=== PATIENT | male | born 1995 ===

== ENCOUNTER 2020-01-31 12:57 | Outpatient (REF) | payer OTHER, SELFPAY | END 2020-01-31 12:58 | disposition home or self-care (01) | LOC: HO.LAB 12:57 | PROVIDERS: PCP Nurse Practitioner Family; Visit Provider Internal Medicine | DX: Z20.828 Contact with and (suspected) exposure to other viral communicable diseases (principal) | CPT/HCPCS: C9803; U0003 ==

== ENCOUNTER 2020-02-06 11:59 | Outpatient (REF) | payer OTHER, SELFPAY ==
[2020-02-06 14:34] LABS: Alanine Aminotransferase 32 U/L (0-40); Albumin Level 4.5 g/dL (3.5-5.0); Alkaline Phosphatase 56 U/L (39-117); Anion Gap 15 (12-20); Aspartate Amino Transferase 23 U/L (5-37); Bilirubin Total 0.7 mg/dL (0.0-1.0); Blood Urea Nitrogen 10 mg/dL (9-16); Calcium 9.4 mg/dL (8.4-10.2); Carbon Dioxide 26 mmol/L (22-29); Chloride 101 mmol/L (96-108); Cholesterol 175 mg/dL; Estimated Glomerular Filt Rate > 60; Glucose Fasting 89 mg/dL (60-99); HDL Cholesterol 51 mg/dL; LDL Cholesterol Calculated 98 mg/dl; Potassium 4.1 mmol/l (3.3-5.1); Sodium 138 mmol/L (135-145); Total Protein 7.5 g/dL (6.5-8.0); Triglycerides 132 mg/dL
[2020-02-06 14:40] LABS: TSH reflex Free T4 1.28 mIU/mL (0.32-4.0)
== END 2020-02-06 12:00 | disposition home or self-care (01) ==
LOC: HO.HMGCLDS 11:59
PROVIDERS: PCP Nurse Practitioner Family; Visit Provider Nurse Practitioner Family
DX: Z00.00 Encounter for general adult medical examination without abnormal findings (principal); Z13.220 Encounter for screening for lipoid disorders; Z13.29 Encounter for screening for other suspected endocrine disorder
CPT/HCPCS: 80053; 80061; 84443

== ENCOUNTER 2020-05-21 11:47 | Outpatient (REF) | payer OTHER, SELFPAY ==
[2020-05-21 13:49] LABS: MANUAL DIFF FLAG NO
[2020-05-21 13:54] LABS: Basophils Percent Auto 0.4 % (0-2); Eosinophils Absolute Auto 0.1 X10*3/uL (0.0-0.4); Eosinophils Percent Auto 1.5 % (0-4); Hematocrit 44.4 % (42-52); Hemoglobin 15.4 g/dl (14.0-18.0); Imm Gran Abs Auto 0.02 X10*3/uL (0.00-0.03); Imm Gran Pct Auto 0.3 % (0.0-0.4); Lymphocytes Absolute Auto 2.3 X10*3/uL (1.2-4.9); Lymphocytes Percent Auto 33.7 % (20-40); Mean Corpuscular HGB Conc 34.7 g/dl (31.0-36.0); Mean Corpuscular Hemoglobin 30.2 pg (27.0-33.0); Mean Corpuscular Volume 87.1 fL (80-98); Mean Platelet Volume 11.5 fL (9.4-12.4); Monocytes Absolute Auto 0.6 X10*3/uL (0.1-1.2); Monocytes Percent Auto 8.3 % (2-11); Neutrophils Absolute Auto 3.8 X10*3/uL (2.0-8.3); Neutrophils Percent Auto 55.8 % (45-73); Platelet Count 222 X10*3/uL (160-400); Red Cell Distribution Width 11.9 % (11.0-16.0); White Blood Count 6.7 X10*3/uL (4.8-10.8)
[2020-05-21 14:23] LABS: Alanine Aminotransferase 35 U/L (0-40); Albumin Level 4.2 g/dL (3.5-5.0); Alkaline Phosphatase 48 U/L (39-117); Anion Gap 11 (12-20); Aspartate Amino Transferase 23 U/L (5-37); Bilirubin Total 0.6 mg/dL (0.0-1.0); Blood Urea Nitrogen 7 mg/dL (9-16); Calcium 8.9 mg/dL (8.4-10.2); Carbon Dioxide 30 mmol/L (22-29); Chloride 105 mmol/L (96-108); Cholesterol 148 mg/dL; Estimated Glomerular Filt Rate > 60; Glucose Fasting 88 mg/dL (60-99); HDL Cholesterol 42 mg/dL; LDL Cholesterol Calculated 86 mg/dl; Lipase 14 U/L (8-78); Potassium 4.5 mmol/L (3.3-5.1); Sodium 141 mmol/L (135-145); Total Protein 6.7 g/dL (6.5-8.0); Triglycerides 103 mg/dL
[2020-05-21 14:45] LABS: TSH reflex Free T4 0.61 uIU/mL (0.32-4.0)
== END 2020-05-21 11:48 | disposition home or self-care (01) ==
LOC: HO.HMGCLDS 11:47
PROVIDERS: PCP Nurse Practitioner Family; Visit Provider Nurse Practitioner Family
DX: R11.2 Nausea with vomiting, unspecified (principal)
CPT/HCPCS: 36415; 80053; 80061; 83690; 84443; 85025

== ENCOUNTER 2020-06-13 08:20 | Outpatient (REF) | payer OTHER, SELFPAY ==
--- NOTE | ~2020-06-13 | US_ITS ---
EXAMINATION: US ABDOMEN COMPLETE CLINICAL INFORMATION: Nausea with vomiting, unspecified. COMPARISON: Ultrasound abdomen complete 10/25/2019 and 01/28/2018. KUB 02/04/2017. TECHNIQUE: Real-time imaging of the abdominal viscera. FINDINGS: PANCREAS: The head of the body is homogeneous in echotexture. The body and tail of pancreas is not visualized. ABDOMINAL AORTA: The proximal, mid, and distal segments are normal in caliber. INFERIOR VENA CAVA: Visualized portions are normal. LIVER: The liver is normal in size. The liver contour is normal. The liver is diffusely echogenic. No focal hepatic lesion. There is no intrahepatic biliary duct dilatation seen. GALLBLADDER: Normal. The gallbladder is physiologically distended without evidence of stones, sludge, polyps, wall thickening or pericholecystic fluid. COMMON BILE DUCT: Normal in caliber measuring 0.2 cm in diameter. RIGHT KIDNEY: Normal. No hydronephrosis. No renal calculi or focal parenchymal lesions. The kidney measures 10.9 cm in maximum dimension. LEFT KIDNEY: Normal. No hydronephrosis. No renal calculi or focal parenchymal lesions. The kidney measures 11.3 cm in maximum dimension. SPLEEN: Normal. The spleen measures 9.8 cm in maximum dimension. FREE FLUID: None. US/US abdomen complete IMPRESSION: Diffuse echogenic liver without focal lesion. Rest of the abdominal ultrasound is unremarkable.
== END 2020-06-13 08:21 | disposition home or self-care (01) ==
LOC: HO.HMGCX 08:20
PROVIDERS: Visit Provider Nurse Practitioner Family
DX: R11.2 Nausea with vomiting, unspecified (principal)
CPT/HCPCS: 76700

== ENCOUNTER 2020-08-15 13:08 | Emergency (ER) | payer OTHER, SELFPAY ==
[2020-08-15 13:51] VITALS: BP 132/79; PULSE 66; RESP 18; TEMP 36.2; O2SAT 97; BMI 36.1
--- NOTE | 2020-08-15 14:36 | ED.GENADULT ---
HPI - General Adult General Chief complaint: GI Bleed <IMAN Goel Last Filed: 08/24/20 12:19> Stated complaint: hernia <IMAN Goel Last Filed: 08/24/20 12:19> Time Seen by Provider: 08/15/20 14:35 <IMAN Goel Last Filed: 08/24/20 12:19> History of Present Illness HPI narrative: Patient complains of noticing blood on the toilet paper after a bowel movement and some drops of blood in the toilet along with normal-appearing stool no black tarry stool no purple stool, normal brown stool with some flecks of blood in the water, no dizziness no weakness no vomiting no fever no abdominal pain <IMAN Goel Last Filed: 08/24/20 12:19> Related Data Home medications: Previous Rx's Medication Instructions Recorded lorazepam 0.5 mg tablet 0.5 mg PO DAILY PRN #5 tab 05/10/20 albuterol sulfate 90 mcg/actuation 1 inh INHALATION QID PRN 30 Days 07/28/20 aerosol inhaler #8.5 g <IMAN Goel Last Filed: 08/24/20 12:19> Allergies/adverse reactions: Allergies Allergy/AdvReac Type Severity Reaction Status Date / Time Sulfa (Sulfonamide Allergy Unknown hives Verified 09/18/20 17:16 Antibiotics) sulfamethoxazole Allergy Unknown HIVES Verified 09/18/20 17:16 [From BACTRIM] trimethoprim [From BACTRIM] Allergy Unknown HIVES Verified 09/18/20 17:16 SEASONAL ALLERGIES Allergy Unknown UNKNOWN Uncoded 09/18/20 17:16 <IMAN Goel Last Filed: 08/24/20 12:19> Review of Systems Review of Systems: Positive for blood in the stool Negatives are no fever no chills no dizziness no weakness no headache no neck pain no fainting no feeling faint no dizziness no weakness no chest pain no abdominal pain no nausea vomiting or diarrhea no constipation no dysuria no skin rash <IMAN Goel Last Filed: 08/24/20 12:19> Yes all other systems are reviewed and are negative <IMAN Goel Last Filed: 08/24/20 12:19> PMFSH Past Medical History Source: nursing notes reviewed <IMAN Goel Last Filed: 08/24/20 12:19> Medical History: Medical History Schizoaffective disorder <IMAN Goel - Last Filed: 08/24/20 12:19> Family History Family History: Family History Father No problems noted. Mother No problems noted. Sister No problems noted. <IMAN Goel - Last Filed: 08/24/20 12:19> Social History Social History: Social History Alcohol intake: never Patient Tobacco Use Status: Current everyday Tobacco user e-Cigarette/Vaping Use: Former Use <IMAN Goel - Last Filed: 08/24/20 12:19> Physical Exam Vital Signs: Vital Signs: Last Vital Signs Temp 99.2 F 08/15/20 15:18 Pulse 64 08/15/20 15:18 Resp 18 08/15/20 15:18 BP 117/79 08/15/20 15:18 Pulse Ox 98 08/15/20 15:18 Body Mass Index 36.1 <IMAN Goel - Last Filed: 08/24/20 12:19> Vital Signs: Last Vital Signs Temp 99.2 F 08/15/20 15:18 Pulse 64 08/15/20 15:18 Resp 18 08/15/20 15:18 BP 117/79 08/15/20 15:18 Pulse Ox 98 08/15/20 15:18 Body Mass Index 36.1 <Nilson Coyne MD - Last Filed: 09/25/20 18:47> General appearance is no acute distress comfortable and cooperative The eye exam there is no pallor, anicteric The pharynx is clear with moist mucous membranes Neck is supple Chest clear to auscultation bilateral Are no murmur Abdomen soft nontender Rectal exam was normal no obvious hemorrhoid internal exam no mass was palpated there was brown stool on the glove Extremities no edema no rash no petechial rash no purpura Neuro no gross motor or sensory deficit <IMAN Goel - Last Filed: 08/24/20 12:19> Course Course Course Narrative: CBC was normal with no evidence of anemia Patient is not bleeding from any other source he has no petechiae or purpura poor a, he is eating and drinking normally he has had no black tarry stool no vomiting he is not dizzy and feels fine Guaiac was positive when card was returned from lab and patient is advised to follow closely with primary doctor and possibly to be referred for colonoscopy if needed and return here if there is any dizziness or weakness or heavy bleeding <IMAN Goel - Last Filed: 08/24/20 12:19> I have reviewed the chart <Nilson Coyne MD - Last Filed: 09/25/20 18:47> Medical Decision Making Lab Data Result diagrams: : 08/15/20 15:04 <IMAN Goel - Last Filed: 08/24/20 12:19> Labs: Lab Results 08/15/20 08/15/20 Range/Units 15:04 15:04 WBC 6.7 (4.8-10.8) X10*3/uL RBC 5.40 (4.60-5.80) X10*6/uL Hgb 16.3 (14.0-18.0) g/dl Hct 47.0 (42-52) % MCV 87.0 (80-98) fL MCH 30.2 (27.0-33.0) pg MCHC 34.7 (31.0-36.0) g/dl RDW 12.4 (11.0-16.0) % Plt Count 231 (160-400) X10*3/uL MPV 11.1 (9.4-12.4) fL Immature Gran % (Auto) 0.2 (0.0-0.4) % Neut % (Auto) 61.1 (45-73) % Lymph % (Auto) 27.8 (20-40) % [place] % (Auto) 8.6 (2-11) % Eos % (Auto) 2.0 (0-4) % Baso % (Auto) 0.3 (0-2) % Lymph # (Auto) 1.9 (1.2-4.9) X10*3/uL [place] # (Auto) 0.6 (0.1-1.2) X10*3/uL Eos # (Auto) 0.1 (0.0-0.4) X10*3/uL Baso # (Auto) 0.0 (0.0-0.2) X10*3/uL Abs Immat Gran (auto) 0.01 (0.00-0.03) X10*3/uL Absolute Neuts (auto) 4.1 (2.0-8.3) X10*3/uL Absolute Nucleated RBC 0.000 (0.0-0.012) X10*3/uL Nucleated RBC % (auto) 0.0 (0.0-0.2) /100WBC Stool Occult Blood POSITIVE (NEGATIVE) <IMAN Goel - Last Filed: 08/24/20 12:19> Lab Results 08/15/20 08/15/20 Range/Units 15:04 15:04 WBC 6.7 (4.8-10.8) X10*3/uL RBC 5.40 (4.60-5.80) X10*6/uL Hgb 16.3 (14.0-18.0) g/dl Hct 47.0 (42-52) % MCV 87.0 (80-98) fL MCH 30.2 (27.0-33.0) pg MCHC 34.7 (31.0-36.0) g/dl RDW 12.4 (11.0-16.0) % Plt Count 231 (160-400) X10*3/uL MPV 11.1 (9.4-12.4) fL Immature Gran % (Auto) 0.2 (0.0-0.4) % Neut % (Auto) 61.1 (45-73) % Lymph % (Auto) 27.8 (20-40) % [place] % (Auto) 8.6 (2-11) % Eos % (Auto) 2.0 (0-4) % Baso % (Auto) 0.3 (0-2) % Lymph # (Auto) 1.9 (1.2-4.9) X10*3/uL [place] # (Auto) 0.6 (0.1-1.2) X10*3/uL Eos # (Auto) 0.1 (0.0-0.4) X10*3/uL Baso # (Auto) 0.0 (0.0-0.2) X10*3/uL Abs Immat Gran (auto) 0.01 (0.00-0.03) X10*3/uL Absolute Neuts (auto) 4.1 (2.0-8.3) X10*3/uL Absolute Nucleated RBC 0.000 (0.0-0.012) X10*3/uL Nucleated RBC % (auto) 0.0 (0.0-0.2) /100WBC Stool Occult Blood POSITIVE (NEGATIVE) <Nilson Coyne MD - Last Filed: 09/25/20 18:47> Discharge Plan Discharge Clinical Impression: Rectal bleeding <IMAN Goel - Last Filed: 08/24/20 12:19> Patient Disposition: Home, Self-Care <IMAN Goel - Last Filed: 08/24/20 12:19> Additional Instructions: Our testing showed trace blood in the stool Your blood count was normal, your not losing too much blood at this time I wrote a prescription for hydrocortisone ointment which may help with irritation and itchiness Return anytime for dizziness weakness black tarry stool hemorrhaging blood, any worse condition or any concerns Follow within 2 weeks with primary doctor for re-evaluation and possible referral to specialist as if bleeding continues he may need colonoscopy <IMAN Goel - Last Filed: 08/24/20 12:19> Prescriptions: No Action lorazepam 0.5 mg tablet 0.5 mg PO DAILY PRN (Reason: anxiety) Qty: 5 RF: 0 albuterol sulfate 90 mcg/actuation HFA aerosol inhaler 1 inh inhalation QID PRN (Reason: shortness of breath or wheezing) 30 Days Qty: 8.5 RF: 2 <IMAN Goel - Last Filed: 08/24/20 12:19> Stand Alone Forms: Work/School Release <IMAN Goel - Last Filed: 08/24/20 12:19> Interventions: ED Discharge Assessment Last Done: 08/15/20 15:42 <IMAN Goel - Last Filed: 08/24/20 12:19> Discharge Date/Time: 08/15/20 15:43 <IMAN Goel - Last Filed: 08/24/20 12:19>
[2020-08-15 15:07] LABS: MANUAL DIFF FLAG NO
[2020-08-15 15:09] LABS: OBS1 POSITIVE (NEGATIVE)
[2020-08-15 15:10] LABS: OBS Int Ctl Valid YES
[2020-08-15 15:12] LABS: Basophils Percent Auto 0.3 % (0-2); Eosinophils Absolute Auto 0.1 X10*3/uL (0.0-0.4); Hemoglobin 16.3 g/dl (14.0-18.0); Imm Gran Abs Auto 0.01 X10*3/uL (0.00-0.03); Imm Gran Pct Auto 0.2 % (0.0-0.4); Lymphocytes Absolute Auto 1.9 X10*3/uL (1.2-4.9); Lymphocytes Percent Auto 27.8 % (20-40); Mean Corpuscular HGB Conc 34.7 g/dl (31.0-36.0); Mean Corpuscular Hemoglobin 30.2 pg (27.0-33.0); Mean Platelet Volume 11.1 fL (9.4-12.4); Monocytes Absolute Auto 0.6 X10*3/uL (0.1-1.2); Monocytes Percent Auto 8.6 % (2-11); Neutrophils Absolute Auto 4.1 X10*3/uL (2.0-8.3); Neutrophils Percent Auto 61.1 % (45-73); Platelet Count 231 X10*3/uL (160-400); Red Cell Distribution Width 12.4 % (11.0-16.0); White Blood Count 6.7 X10*3/uL (4.8-10.8)
[2020-08-15 15:18] VITALS: BP 117/79; PULSE 64; RESP 18; TEMP 37.3; O2SAT 98
== END 2020-08-15 15:43 | disposition home or self-care (01) ==
PROVIDERS: Physician Assistant Medical; Emergency Provider Emergency Medicine; PCP Nurse Practitioner Family
DX: K62.5 Hemorrhage of anus and rectum (principal); Z79.899 Other long term (current) drug therapy
CPT/HCPCS: 36415; 82272; 85025; 99284

== ENCOUNTER 2020-09-06 | Outpatient (REF) | payer OTHER, SELFPAY | END 2020-09-06 00:01 | disposition home or self-care (01) | LOC: HO.LNP | PROVIDERS: Visit Provider Nurse Practitioner Family | DX: Z13.89 Encounter for screening for other disorder (principal) ==

== ENCOUNTER 2020-09-13 11:29 | Outpatient (REF) | payer OTHER, SELFPAY ==
[2020-09-13 11:54] LABS: FIT Int Ctl YES; FIT1 NEGATIVE (NEGATIVE); FIT2 NEGATIVE (NEGATIVE)
== END 2020-09-13 11:30 | disposition home or self-care (01) ==
LOC: HO.LNP 11:29
PROVIDERS: Visit Provider Nurse Practitioner Family
DX: Z12.11 Encounter for screening for malignant neoplasm of colon (principal)
CPT/HCPCS: 82274

== ENCOUNTER 2021-07-21 07:18 | Inpatient (IN) | payer OTHER, SELFPAY ==
--- NOTE | 2021-07-21 | ECG_ITS ---
Test Reason : chest pain Blood Pressure : / mmHG Vent. Rate : 063 BPM Atrial Rate : 063 BPM P-R Int : 166 ms QRS Dur : 106 ms QT Int : 380 ms P-R-T Axes : 060 101 023 degrees QTc Int : 388 ms Normal sinus rhythm with sinus arrhythmia Rightward axis Borderline ECG When compared with ECG of 27-JUL-2019 13:34, No significant change was found Referred By: Generic ED Physician Electronically Signed By:BRITANY DUMONT
--- NOTE | ~2021-07-21 | XR_ITS ---
EXAMINATION: XR CHEST CLINICAL INFORMATION: Left-sided chest pain and tingling in left arm. COMPARISON: 02/06/2016 chest radiograph. TECHNIQUE: 2 views of the chest were obtained. FINDINGS: No significant abnormality is noted involving the heart, lungs, mediastinum, bony thorax or soft tissues. XR/XR chest 2V IMPRESSION: No acute cardiopulmonary process.
[2021-07-21 07:30] VITALS: BP 113/60; PULSE 59; RESP 18; TEMP 36.4; O2SAT 98; BMI 33.4
[2021-07-21 08:03] LABS: MANUAL DIFF FLAG NO
[2021-07-21 08:14] LABS: Basophils Percent Auto 0.1 % (0-2); Eosinophils Absolute Auto 0.1 X10*3/uL (0.0-0.4); Eosinophils Percent Auto 1.6 % (0-4); Hematocrit 45.4 % (42.0-52.0); Hemoglobin 15.7 g/dl (14.0-18.0); Imm Gran Abs Auto 0.02 X10*3/uL (0.00-0.03); Imm Gran Pct Auto 0.3 % (0.0-0.4); Lymphocytes Absolute Auto 2.4 X10*3/uL (1.2-4.9); Lymphocytes Percent Auto 30.9 % (20-40); Mean Corpuscular HGB Conc 34.6 g/dl (31.0-36.0); Mean Corpuscular Hemoglobin 29.8 pg (27.0-33.0); Mean Corpuscular Volume 86.3 fL (80.0-98.0); Mean Platelet Volume 10.5 fL (9.4-12.4); Monocytes Absolute Auto 0.7 X10*3/uL (0.1-1.2); Neutrophils Absolute Auto 4.5 x10*3/uL (2.0-8.3); Neutrophils Percent Auto 58.1 % (45-73); Platelet Count 213 X10*3/uL (160-400); Red Blood Count 5.26 X10*6/uL (4.60-5.80); Red Cell Distribution Width 12.8 % (11.0-16.0); White Blood Count 7.7 X10*3/uL (4.8-10.8)
[2021-07-21 08:25] LABS: Anion Gap 11 (12-20); Blood Urea Nitrogen 11 mg/dL (9-16); Calcium 9.5 mg/dL (8.4-10.2); Carbon Dioxide 25 mmol/L (22-29); Chloride 106 mmol/L (96-108); Creatinine Clr Calc Pharmacy 126.7; Estimated Glomerular Filt Rate > 60; Glucose Random 96 mg/dL (60-115); Sodium 138 mmol/L (135-145)
[2021-07-21 08:30] LABS: Troponin-I High Sensitivity < 3.5 ng/L (<3.5-35.0)
--- NOTE | 2021-07-21 08:49 | ED.CHESTPAIN ---
HPI - Chest Pain General Chief Complaint: Chest Pain Stated Complaint: chest pain down into l arm not sleeping Time Seen by Provider: 07/21/21 08:41 Source: patient Mode of arrival: ambulatory Limitations: other (Poor historian not really responding/answering to questions) History of Present Illness HPI narrative: 26-year-old male with a past medical history of schizoaffective disorder and asthma presenting to the ED with complaints of chest pain since last night while he was resting in bed that radiates to his left arm with associated tingling/numbness. He reports he has never had this pain in the past. Although he is a very poor historian when I ask him questions he is very withdrawn and is staring into space not answering some of my questions. He reports that he has not been sleeping well. He reports that he drinks alcohol and last drank approximately 4 days ago. He denies any drug usage including cocaine/heroin/PCP/ecstasy and all other drugs. He denies recent travel or sick contacts. He denies any fevers, dizziness, headaches, nausea/vomiting, back pain, cough, dyspnea on exertion, orthopnea, palpitations, paresthesias, abdominal pain, diarrhea or constipation, dysuria, abnormal penile discharge, lower extremity edema or calf tenderness, SI/HI/auditory visualizations thoughts of self-injury. MD complaint: chest pain Onset (ago): day(s) (Since last night) Timing of current episode: constant and still present Prior episodes: No Onset: during rest Pain location: left chest Pain radiation: left arm Severity: mild Relieving factors: nothing Exacerbating factors: nothing Treatment prior to arrival: none Risk Factors Coronary artery disease risk factors: none Thoracic aortic dissection risk factors: none Related Data Home Medications Medication Instructions Recorded Confirmed hydroxyzine pamoate 50 mg capsule 50 mg PO TID 07/21/21 07/21/21 melatonin 3 mg tablet 9 mg PO BEDTIME 07/21/21 07/21/21 olanzapine 2.5 mg tablet 2.5 mg PO DAILY 07/21/21 07/21/21 olanzapine 5 mg tablet 5 mg PO BEDTIME 07/21/21 07/21/21 Previous Rx's Medication Instructions Recorded albuterol sulfate 90 mcg/actuation 1 inh INHALATION QID PRN 30 Days 07/28/20 aerosol inhaler #8.5 g Allergies Allergy/AdvReac Type Severity Reaction Status Date / Time Sulfa (Sulfonamide Allergy Unknown hives Verified 01/01/21 16:04 Antibiotics) sulfamethoxazole Allergy Unknown HIVES Verified 01/01/21 16:04 [From BACTRIM] trimethoprim [From BACTRIM] Allergy Unknown HIVES Verified 01/01/21 16:04 SEASONAL ALLERGIES Allergy Unknown UNKNOWN Uncoded 09/18/20 17:16 Review of Systems Review of Systems: Constitutional : No Weight loss, No Fever, No Chills, No Night Sweats, No Fatigue, No Malaise ENT/Mouth : No Hearing loss, No Ear Pain, No Nasal Congestion, No Sinus Pain, No Hoarseness, No sore throat, No Rhinorrhea, No Swallowing Difficulty Eyes: No Eye Pain, No Swelling, No Redness, No Foreign Body, No Discharge, No Vision Changes Cardiovascular : + Chest Pain, No SOB, No Dyspnea on Exertion, No Orthopnea, No Edema, No Palpitations Respiratory : No Cough, No Sputum, No Wheezing, No Smoke Exposure, No Dyspnea Gastrointestinal : No Nausea, No Vomiting, No Diarrhea, No Constipation, No abdominal Pain, No Hematochezia, No Melena Genitourinary : no irregular bleeding, No Dysuria, No Urinary Frequency, No Hematuria, No Urinary Incontinence, No Urgency, No Flank Pain, No Urinary Flow Changes, No Hesitancy Musculoskeletal : No joint pain, No Myalgias, No Joint Swelling Skin : No Skin Lesions, No rash Neuro : + left arm numbness/tingling, No Weakness, No Loss of Consciousness, No Dizziness, No Headache Psych : No Anxiety/Panic, No Depression, No SI/HI/AH/VH, No Social Issues, Heme/Lymph: No Bruising, No Bleeding,No Lymphadenopathy Endocrine : No Polyuria, No Polydipsia, No Temperature Intolerance Yes all other systems are reviewed and are negative [facility] Past Medical History Attestation statement: The following information was validated with the patient. Medical History Asthma Schizoaffective disorder Family History Family History Father No problems noted. Mother No problems noted. Sister No problems noted. Social History Social History Alcohol intake: current Alcohol intake frequency: 0-2 drinks per day Patient Tobacco Use Status: Current everyday Tobacco user Smoked in Last 30 Days: Yes e-Cigarette/Vaping Use: Former Use Use of substances other than those prescribed or required for medical reasons: Refusing to respond Advance Directives: No Advance Directives Information Provided: Yes Physical Exam Vital Signs: Vital Signs: Last Vital Signs Temp 97.7 F 07/21/21 09:42 Pulse 59 07/21/21 09:42 Resp 18 07/21/21 09:42 BP 98/54 L 07/21/21 09:42 Pulse Ox 99 07/21/21 09:42 BMI result Body Mass Index 33.4 vital signs have been reviewed as normal and appeared to be correct. Blood pressure normal. Heart rate normal. Respiration rate normal. Temperature normal. Oxygen saturation normal. Appearance: Alert. Oriented X3. No acute distress. Head: Normal external exam. Normocephalic. Atraumatic. Eyes: PERRLA. EOMI. Conjunctiva and sclera normal. Eyelids normal. ENT: Pharynx normal. Uvula midline. Moist mucous membranes. No trismus noted. No drooling noted. No muffled voice noted. Neck: Normal inspection. Neck supple. FROM. No adenopathy. Thyroid Normal. No meningeal signs. No neck mass noted. CVS: Normal heart rate and rhythm. Heart sound normal. No murmurs noted. Pulses normal throughout. Respiratory: No respiratory distress. Painless inspiration. Breath sounds normal. No wheezes/rales/rhonchi noted. Chest nontender. No accessory muscle usage noted or decreased air movement noted. Abdomen: Soft and nontender. Bowel sounds normal in all 4 quadrants. No distention noted. No organomegaly noted. No visible injury noted. Back: No CVA tenderness. Full range of motion noted. Skin: Skin warm and dry. Normal skin color. Normal skin turgor. No rashes/lesions/lacerations noted. Extremities: No lower extremity edema. Extremities exhibit normal range of motion. Extremities nontender. Neuro: Oriented X 3. No motor deficit. No sensory deficit. Reflexes normal. CN's II-XII intact bilaterally? Vascular: +2 distal radial pulses bilaterally. +2 distal pedal pulses bilaterally. Normal capillary refill the upper and lower extremit nails. No cyanosis noted. Psych: Appearance grossly normal, well-kept, mental status normal, speech and movement normal, speech clear, patient appears very sad and anxious along with depressed and withdrawn. Is cooperative. Course Course Course Narrative: 8am - 26-year-old male with a past medical history of schizoaffective disorder and asthma presenting to the ED with complaints of chest pain since last night while he was resting in bed that radiates to his left arm with associated tingling/numbness. He reports he has never had this pain in the past. Although he is a very poor historian when I ask him questions he is very withdrawn and is staring into space not answering some of my questions. He reports that he has not been sleeping well. He reports that he drinks alcohol and last drank approximately 4 days ago. He denies any drug usage including cocaine/heroin/PCP/ecstasy and all other drugs. On exam patient appears very withdrawn not really responding to questions quickly he is staring into the room all over the place. I was in there asking him multiple questions over and over because he would not respond or he would take a long time to actually respond. Otherwise he is neuro intact. No focal neuro deficits are noted. CV RRR. Lungs clear to auscultation. Abdomen is soft nontender. No lower extremity edema or calf tenderness noted. Labs were obtained while the patient was in the waiting room and all within normal limits including troponin. EKG normal sinus rhythm with sinus arrhythmia with ventricular rate of 63 with a right word axis deviation no acute ischemic change are noted. Similar compared to prior EKG 07/27/2019. Chest x-ray within normal limits. Therefore at this time patient medically cleared and placed in Physician observation because the patient is more time to be evaluated by crisis. Will continue to monitor. Reevaluation(s) Reevaluation #1: - patient was just evaluated by N and they believe that he is in some type of catatonic state due to his response to questions take a very long time therefore patient was placed on a Section 12 inpatient bed search with N Dr. Samuel signed a section 12 will continue to monitor. Time: 13:59 [facility] - Chest Pain Medical Records Data Attestation: I reviewed the patient's medical records. Lab Data Attestation: I reviewed the patient's lab results. Result diagrams: 07/21/21 07:59 07/21/21 07:59 Labs: Lab Results 07/21/21 07/21/21 07/21/21 Range/Units 07:59 07:59 07:59 WBC 7.7 (4.8-10.8) X10*3/uL RBC 5.26 (4.60-5.80) X10*6/uL Hgb 15.7 (14.0-18.0) g/dl Hct 45.4 (42.0-52.0) % MCV 86.3 (80.0-98.0) fL MCH 29.8 (27.0-33.0) pg MCHC 34.6 (31.0-36.0) g/dl RDW 12.8 (11.0-16.0) % Plt Count 213 (160-400) X10*3/uL MPV 10.5 (9.4-12.4) fL Immature Gran % (Auto) 0.3 (0.0-0.4) % Neut % (Auto) 58.1 (45-73) % Lymph % (Auto) 30.9 (20-40) % [place] % (Auto) 9.0 (2-11) % Eos % (Auto) 1.6 (0-4) % Baso % (Auto) 0.1 (0-2) % Lymph # (Auto) 2.4 (1.2-4.9) X10*3/uL [place] # (Auto) 0.7 (0.1-1.2) X10*3/uL Eos # (Auto) 0.1 (0.0-0.4) X10*3/uL Baso # (Auto) 0.0 (0.0-0.2) X10*3/uL Abs Immat Gran (auto) 0.02 (0.00-0.03) X10*3/uL Absolute Neuts (auto) 4.5 (2.0-8.3) x10*3/uL Absolute Nucleated RBC 0.000 (0.0-0.012) X10*3/uL Nucleated RBC % (auto) 0.0 (0.0-0.2) /100WBC Sodium 138 (135-145) mmol/L Potassium 4.0 (3.3-5.1) mmol/L Chloride 106 (96-108) mmol/L Carbon Dioxide 25 (22-29) mmol/L Anion Gap 11 L (12-20) BUN 11 (9-16) mg/dL Creatinine 1.02 (0.5-1.4) mg/dL Estim Creat Clear Calc 126.7 Estimated GFR > 60 Random Glucose 96 (60-115) mg/dL Calcium 9.5 D (8.4-10.2) mg/dL Troponin I High Sens < 3.5 (<3.5-35.0) ng/L Ethyl Alcohol mg/dL COVID-19 (AYESHA) (Negative) COVID-19 Clin Com 07/21/21 07/21/21 Range/Units 09:38 10:47 WBC (4.8-10.8) X10*3/uL RBC (4.60-5.80) X10*6/uL Hgb (14.0-18.0) g/dl Hct (42.0-52.0) % MCV (80.0-98.0) fL MCH (27.0-33.0) pg MCHC (31.0-36.0) g/dl RDW (11.0-16.0) % Plt Count (160-400) X10*3/uL MPV (9.4-12.4) fL Immature Gran % (Auto) (0.0-0.4) % Neut % (Auto) (45-73) % Lymph % (Auto) (20-40) % [place] % (Auto) (2-11) % Eos % (Auto) (0-4) % Baso % (Auto) (0-2) % Lymph # (Auto) (1.2-4.9) X10*3/uL [place] # (Auto) (0.1-1.2) X10*3/uL Eos # (Auto) (0.0-0.4) X10*3/uL Baso # (Auto) (0.0-0.2) X10*3/uL Abs Immat Gran (auto) (0.00-0.03) X10*3/uL Absolute Neuts (auto) (2.0-8.3) x10*3/uL Absolute Nucleated RBC (0.0-0.012) X10*3/uL Nucleated RBC % (auto) (0.0-0.2) /100WBC Sodium (135-145) mmol/L Potassium (3.3-5.1) mmol/L Chloride (96-108) mmol/L Carbon Dioxide (22-29) mmol/L Anion Gap (12-20) BUN (9-16) mg/dL Creatinine (0.5-1.4) mg/dL Estim Creat Clear Calc Estimated GFR Random Glucose (60-115) mg/dL Calcium (8.4-10.2) mg/dL Troponin I High Sens (<3.5-35.0) ng/L Ethyl Alcohol < 10 mg/dL COVID-19 (AYESHA) Negative (Negative) COVID-19 Clin Com See Note Imaging Data Chest x-ray: Attestation: I personally reviewed and interpreted this imaging study as follows: Radiologist's impression: FINDINGS: No significant abnormality is noted involving the heart, lungs, mediastinum, bony thorax or soft tissues. XR/XR chest 2V IMPRESSION: No acute cardiopulmonary process. ECG Data ECG #1: Attestation: I personally reviewed and interpreted this ECG as follows: ECG interpretation date: 07/21/21 ECG interpretation time: 07:22 Interpretation: EKG normal sinus rhythm with sinus arrhythmia with ventricular rate of 63 with a right word axis deviation no acute ischemic change are noted. Similar compared to prior EKG 07/27/2019. Discharge Plan Discharge Clinical Impression: Atypical chest pain, Schizoaffective disorder, Insomnia, Catatonia Patient Disposition: Still a Patient Prescriptions: No Action albuterol sulfate 90 mcg/actuation HFA aerosol inhaler 1 inh inhalation QID PRN (Reason: shortness of breath or wheezing) 30 Days Qty: 8.5 2RF olanzapine 5 mg Tablet 5 mg PO BEDTIME 0RF hydroxyzine pamoate 50 mg Capsule 50 mg PO TID 0RF melatonin 3 mg Tablet 9 mg PO BEDTIME 0RF olanzapine 2.5 mg Tablet 2.5 mg PO DAILY 0RF
[2021-07-21 09:42] VITALS: BP 98/54; PULSE 59; RESP 18; TEMP 36.5; O2SAT 99
[2021-07-21 10:07] LABS: COVID-19 Test Negative (Negative)
--- NOTE | 2021-07-21 10:51 | PC.NURSE ---
Pt came to pod cooperatively and queitly aprox 1030. Report from Tiera indicated that there was internal stimuli. Pt acknowledges that he has internal stimuli, AH, that at times there is a message of self harm. He states he used to take Vistaril but after an admission to [facility] last summer he stopped d/t side effects.
--- NOTE | 2021-07-21 10:55 | PC.NURSE ---
pt also stated maybe its the THC . Awaiting VILLA.
--- NOTE | 2021-07-21 11:08 | PC.NURSE ---
smart sheet sent to [facility].
[2021-07-21 11:11] LABS: Ethanol < 10 mg/dL
--- NOTE | 2021-07-21 13:39 | PC.NURSE ---
[employer] pension consultant with patient.
--- NOTE | 2021-07-21 13:52 | PHA.MEDREC ---
MED REC COMPLETE, PATIENT REPORTED HAS NOT BEEN TAKING MEDS, LAST FILL HISTORY IS FROM FEBRUARY 2021 Pharmacy Consult ? Medication Reconciliation Pharmacy has completed the medication reconciliation.
[2021-07-21] MEDS: OLANZapine 2.5 MG TABLET PO (16:13)
[2021-07-21] MEDS: hydrOXYzine HCL 50 MG TABLET PO ×2 (16:13→21:46)
[2021-07-21 16:31] VITALS: BP 118/71; PULSE 62; RESP 15; TEMP 36.7; O2SAT 99
[2021-07-21 19:42] LABS: Amphetamine Screen Urine Not Detected (Not Detect); Barbiturates, Urine Not Detected (Not Detect); Benzodiazepines Screen Urine Not Detected (Not Detect); Cannabinoid Screen Urine Not Detected (Not Detect); Cocaine Screen Urine Not Detected (Not Detect); Fentanyl, urine Not Detected (Not Detect); Opiate Screen Urine Not Detected (Not Detect); Phencyclidine Screen Urine Not Detected (Not Detect)
[2021-07-21] MEDS: Melatonin 3 MG TABLET 9 MG PO (21:45)
[2021-07-21] MEDS: OLANZapine 5 MG TABLET PO (21:46)
--- NOTE | 2021-07-22 06:14 | PC.NURSE ---
Patient slept through the night, no distress observed/reported, behavior non concerning, medication compliant, affect flat, disposition per N is section 12 Inpatient bed search, VSS, will continue to monitor.
[2021-07-22 06:50] VITALS: BP 95/57; PULSE 54; RESP 17; TEMP 36.5; O2SAT 97
[2021-07-22] MEDS: OLANZapine 2.5 MG TABLET PO (09:48)
[2021-07-22] MEDS: hydrOXYzine HCL 50 MG TABLET PO ×3 (09:48→20:33)
--- NOTE | 2021-07-22 10:33 | PC.NURSE ---
pt alert and oriented, denies pain, pleasant, up out of room, med compliant. breakfast given. no behavior issues observed/reported. pt accepted to [facility], awaiting bed assignment. will continue to monitor.
[2021-07-22 17:34] LABS: COVID-19 Test Negative (Negative)
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
[2021-07-22 18:00] VITALS: BP 105/57; PULSE 55; RESP 18; TEMP 36.6; O2SAT 96
--- NOTE | 2021-07-22 18:53 | PC.ADMIT ---
Dhruv is a 26-year-old , bilingual male admitted from [facility] to M3 via wheelchair. CV was obtained and placed in his chart. Pt initially self-presented to ED for chest pain but exhibited bizarre behavior. Per crisis eval, pt has history of schizoaffective disorder and appeared to be responding to internal stimuli. He endorses auditory hallucinations and said it's like a constant argument in my head. During this admission assessment, pt presented as guarded, withdrawn, flat, and distressed. Pt avoided eye contact and was slow to respond to questions. He frequently looked down and would keep his hands on his head. Pt denies current psyhiatric providers or psychiatric medications. Tox screen negative, COVID test negative. Pt endorses smoking at least 1 pack of cigarettes per day and is interested in nicotine gum replacement. When asked about alcohol consumption on a typical day, he responded something like 12 beers, I don't know. Pt denies current SI/HI but said he feels safe reaching out to staff if needed.
[2021-07-22] MEDS: Nicotine Polacrilex 2 MG GUM 4 MG BUCCAL (19:40)
[2021-07-22] MEDS: OLANZapine 10 MG TABLET PO (20:33)
[2021-07-22] MEDS: Melatonin 3 MG TABLET 9 MG PO (20:34)
--- NOTE | 2021-07-23 | ECG_ITS ---
Test Reason : palpitations Blood Pressure : / mmHG Vent. Rate : 048 BPM Atrial Rate : 048 BPM P-R Int : 148 ms QRS Dur : 106 ms QT Int : 414 ms P-R-T Axes : 025 081 065 degrees QTc Int : 369 ms Sinus bradycardia Nonspecific ST and T wave abnormality Abnormal ECG When compared with ECG of 21-JUL-2021 07:22, No significant change was found Referred By: Melida Villavicencio Electronically Signed By:ARON SEALS MD
[2021-07-23 08:40] VITALS: BP 109/56; PULSE 50; RESP 16; TEMP 36.4; O2SAT 99
[2021-07-23] MEDS: hydrOXYzine HCL 50 MG TABLET PO ×3 (09:26→22:36)
[2021-07-23] MEDS: OLANZapine 2.5 MG TABLET PO (09:26)
[2021-07-23 10:01] LABS: Estimated Average Glucose 97 mg/dL
[2021-07-23 10:18] LABS: Cholesterol 156 mg/dL; HDL Cholesterol 39 mg/dL; LDL Cholesterol Calculated 81 mg/dl; Magnesium 1.6 mg/dL (1.6-2.6); Triglycerides 181 mg/dL
[2021-07-23 10:25] LABS: Free T4 (Free Thyroxine) 0.95 ng/dL (0.71-1.85); Thyroid Stimulating Hormone 1.53 uIU/mL (0.32-4.0)
--- NOTE | 2021-07-23 10:43 | HO.PSYCHPN ---
Subjective Subjective Date of Service: 07/23/21 Reason For Visit: Schizoaffective disorder Subjective Notes: Conditional Voluntary Interim History: Pt reports feeling confused, depressed. passive SI. He reports strange things are happening. He reports electronics are sending messages. Poverty of speech, appears thought blocking. He reports dizziness- no significant HOTN or ortho changes. EKG- no ST elevation. Pt mostly in his room, minimally verbal. No behavioral concerns. 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 Unkempt, in hospital attire, somewhat overweight. Poor eye contact, inattentive. No Tics or Tremors. No abnormal involuntary movements. Guarded, difficult to engage. Non-pressured speech, non-spontaneous, quiet. Has prolonged speech latency. No dysarthria. Mood is ?pretty anxious,? affect is flat. Denies SI/SIB/HI upon inquiry. Endorses AH. Appears internally preoccupied. Endorses paranoid delusional thought content. Thoughts are blocked. No known cognitive or memory impairment. Insight/ Judgment is poor. Diagnostics Vital Signs (24Hr): Vital Signs - 24 hr 07/23/21 22:30 07/24/21 08:59 Temperature 97.8 F 97.6 F Pulse Rate 82 58 Respiratory Rate 16 Blood Pressure 107/72 106/69 Pulse Oximetry 98 99 BMI result Body Mass Index 33.4 Labs Results: 07/21/21 07:59 07/21/21 07:59 Labs: Laboratory Results - last 48 hr 07/22/21 07/23/21 07/23/21 17:06 09:21 09:21 Estimat Average Glucose 97 Hemoglobin A1c % 5.0 Magnesium 1.6 Triglycerides 181 Cholesterol 156 LDL Cholesterol, Calc 81 HDL Cholesterol 39 Vitamin B12 Folate TSH 1.53 Free T4 0.95 COVID-19 (AYESHA) Negative COVID-19 Clin Com See Note 07/23/21 09:21 Estimat Average Glucose Hemoglobin A1c % Magnesium Triglycerides Cholesterol LDL Cholesterol, Calc HDL Cholesterol Vitamin B12 365 Folate 18.0 TSH Free T4 COVID-19 (AYESHA) COVID-19 Clin Com Imaging Radiology Impressions: ITS Impressions Chest X-Ray 07/21/21 09:00 IMPRESSION: No acute cardiopulmonary process. Medications Medications Current Medications Acetaminophen (Acetaminophen 325 Mg Tablet) 650 mg PO Q6H PRN PRN Reason: Headache/Pain Mild Scale (1-3) Al Hydroxide/Mg Hydroxide (Magnesium Hydrox/Alum Hydrox 30 Ml Oral.Susp) 30 ml PO Q6H PRN PRN Reason: Heartburn/Nausea Albuterol Sulfate (Albuterol Sulfate 90 Mcg 8 Gm Inhaler) 1 puff INHALE QID PRN PRN Reason: shortness of breath or wheezing Hydroxyzine HCl (Hydroxyzine Hcl 50 Mg Tablet) 50 mg PO TID [facility] Last Admin: 07/24/21 08:51 Dose: 50 mg Documented by: Lorazepam (Lorazepam 0.5 Mg Tablet) 0.5 mg PO Q6H PRN PRN Reason: anxiety, agitation, catatonia Magnesium Hydroxide (Milk Of Magnesia 30 Ml Oral.Susp) 30 ml PO DAILY PRN PRN Reason: Constipation Melatonin (Melatonin 3 Mg Tablet) 9 mg PO BEDTIME [facility] Last Admin: 07/23/21 22:36 Dose: 9 mg Documented by: Nicotine Polacrilex (Nicotine Polacrilex 2 Mg Gum) 4 mg BUCCAL Q2H PRN PRN Reason: nicotine craving Last Admin: 07/22/21 19:40 Dose: 4 mg Documented by: Olanzapine (Olanzapine 2.5 Mg Tablet) 2.5 mg PO DAILY [facility] Last Admin: 07/24/21 08:51 Dose: 2.5 mg Documented by: Olanzapine (Olanzapine 10 Mg Tablet) 20 mg PO BEDTIME [facility] Last Admin: 07/23/21 22:36 Dose: 20 mg Documented by: Pharmacy Consult (Consult Rx Perform Med Rec) 1 each MISCELLANE ONCE PRN PRN Reason: Consult order Trazodone HCl (Trazodone Hcl 50 Mg Tablet) 50 mg PO BEDTIME PRN PRN Reason: Insomnia Allergies Allergies Allergy/AdvReac Type Severity Reaction Status Date / Time Sulfa (Sulfonamide Allergy Unknown hives Verified 01/01/21 16:04 Antibiotics) sulfamethoxazole Allergy Unknown HIVES Verified 01/01/21 16:04 [From BACTRIM] trimethoprim [From BACTRIM] Allergy Unknown HIVES Verified 01/01/21 16:04 SEASONAL ALLERGIES Allergy Unknown UNKNOWN Uncoded 09/18/20 17:16 Assessment & Plan Assessment & Plan (1) Schizoaffective disorder, depressive type: Status: Acute Code(s): F25.1 - Schizoaffective disorder, depressive type Plan Dhruv is a 26 y.o. male who carries a dx of schizoaffective disorder, depressed type. He presented to [facility] on 07/21/2021 due to complaints of chest pain since last night, has not been sleeping well. Urine tox screen negative. Denies recent alcohol use. In the ED, pt presented as internally preoccupied, thought blocking, was not an accurate historian. He endorsed AH. Reports he has been off psychotropic medication x 11/2020. Hx of multiple inpatient admissions for psychotic sx and non-adherence with meds/ OP services in the community. Plan: Pt says he wants to start an antidepressant, may benefit from higher dose of olanzapine for psychotic sx. Will defer to primary psych team. Q15 min safety checks, CV Monitor response to medications. Monitor for safety in the milieu. Discharge on stabilization. Patient seen. Chart reviewed. Discussed with team. Obtain collateral contact info?as needed 5/3 increase olanzapine to 20mg po qhs and continue 2.5mg po daily. I spent ___25___ minutes with the patient and/or on the patient floor today, greater than?50% of which was spent counseling/coordinating care. Reason for contiued inpatient stay Substantial Risk for: harm to self and inability to function
[2021-07-23 10:54] LABS: Vitamin B12 365 pg/mL (200-900)
[2021-07-23 22:30] VITALS: BP 107/72; PULSE 82; TEMP 36.6; O2SAT 98
[2021-07-23] MEDS: OLANZapine 10 MG TABLET 20 MG PO (22:36)
[2021-07-23] MEDS: Melatonin 3 MG TABLET 9 MG PO (22:36)
[2021-07-24] MEDS: OLANZapine 2.5 MG TABLET PO (08:51)
[2021-07-24] MEDS: hydrOXYzine HCL 50 MG TABLET PO ×3 (08:51→21:02)
[2021-07-24 08:59] VITALS: BP 106/69; PULSE 58; RESP 16; TEMP 36.4; O2SAT 99
[2021-07-24] MEDS: LORazepam 1 MG TABLET PO ×3 (11:42→21:02)
--- NOTE | 2021-07-24 12:04 | HO.PSYCHPN ---
Subjective Subjective Date of Service: 07/24/21 Reason For Visit: Schizoaffective disorder Subjective Notes: Conditional Voluntary Interim History: Pt reports hearing voices, again that someone sending messages through electronics, appears thought blocking, some staring at wall, speech not spontaneous. He reports passive SI, no plan or intent. He endorses depressed mood. Hx of catatonia- good response to ativan. Medication Compliance: Yes Side effects from medications: No Attending Groups: No Review of Systems Review of Systems CVS: No c/o chest pain, palpitations, no SOB ASSET COORDINATOR: No c/o dizziness, headache GI: No c/o Nausea, Vomiting, diarrhea, constipation or heartburn Yes all other systems are reviewed and are negative Mental Status Exam Mental Status Exam Narrative: A&O except to situation. Unkempt, in hospital attire, somewhat overweight. Poor eye contact, inattentive. No Tics or Tremors. No abnormal involuntary movements. Guarded, difficult to engage. Non-pressured speech, non-spontaneous, quiet. Has prolonged speech latency. No dysarthria. Mood is ?pretty anxious,? affect is flat. Denies SI/SIB/HI upon inquiry. Endorses AH. Appears internally preoccupied. Endorses paranoid delusional thought content. Thoughts are blocked. No known cognitive or memory impairment. Insight/ Judgment is poor. Diagnostics Vital Signs (24Hr): Vital Signs - 24 hr 07/23/21 22:30 07/24/21 08:59 Temperature 97.8 F 97.6 F Pulse Rate 82 58 Respiratory Rate 16 Blood Pressure 107/72 106/69 Pulse Oximetry 98 99 BMI result Body Mass Index 33.4 Labs Results: 07/21/21 07:59 07/21/21 07:59 Labs: Laboratory Results - last 48 hr 07/22/21 07/23/21 07/23/21 17:06 09:21 09:21 Estimat Average Glucose 97 Hemoglobin A1c % 5.0 Magnesium 1.6 Triglycerides 181 Cholesterol 156 LDL Cholesterol, Calc 81 HDL Cholesterol 39 Vitamin B12 Folate TSH 1.53 Free T4 0.95 COVID-19 (AYESHA) Negative COVID-19 Clin Com See Note 07/23/21 09:21 Estimat Average Glucose Hemoglobin A1c % Magnesium Triglycerides Cholesterol LDL Cholesterol, Calc HDL Cholesterol Vitamin B12 365 Folate 18.0 TSH Free T4 COVID-19 (AYESHA) COVID-19 Clin Com Imaging Radiology Impressions: ITS Impressions Chest X-Ray 07/21/21 09:00 IMPRESSION: No acute cardiopulmonary process. Medications Medications Current Medications Acetaminophen (Acetaminophen 325 Mg Tablet) 650 mg PO Q6H PRN PRN Reason: Headache/Pain Mild Scale (1-3) Al Hydroxide/Mg Hydroxide (Magnesium Hydrox/Alum Hydrox 30 Ml Oral.Susp) 30 ml PO Q6H PRN PRN Reason: Heartburn/Nausea Albuterol Sulfate (Albuterol Sulfate 90 Mcg 8 Gm Inhaler) 1 puff INHALE QID PRN PRN Reason: shortness of breath or wheezing Hydroxyzine HCl (Hydroxyzine Hcl 50 Mg Tablet) 50 mg PO TID [facility] Last Admin: 07/24/21 08:51 Dose: 50 mg Documented by: Lorazepam (Lorazepam 0.5 Mg Tablet) 0.5 mg PO Q6H PRN PRN Reason: anxiety, agitation, catatonia Lorazepam (Lorazepam 1 Mg Tablet) 1 mg PO TID [facility] Last Admin: 07/24/21 11:42 Dose: 1 mg Documented by: Magnesium Hydroxide (Milk Of Magnesia 30 Ml Oral.Susp) 30 ml PO DAILY PRN PRN Reason: Constipation Melatonin (Melatonin 3 Mg Tablet) 9 mg PO BEDTIME [facility] Last Admin: 07/23/21 22:36 Dose: 9 mg Documented by: Nicotine Polacrilex (Nicotine Polacrilex 2 Mg Gum) 4 mg BUCCAL Q2H PRN PRN Reason: nicotine craving Last Admin: 07/22/21 19:40 Dose: 4 mg Documented by: Olanzapine (Olanzapine 2.5 Mg Tablet) 2.5 mg PO DAILY [facility] Last Admin: 07/24/21 08:51 Dose: 2.5 mg Documented by: Olanzapine (Olanzapine 10 Mg Tablet) 20 mg PO BEDTIME [facility] Last Admin: 07/23/21 22:36 Dose: 20 mg Documented by: Pharmacy Consult (Consult Rx Perform Med Rec) 1 each MISCELLANE ONCE PRN PRN Reason: Consult order Trazodone HCl (Trazodone Hcl 50 Mg Tablet) 50 mg PO BEDTIME PRN PRN Reason: Insomnia Allergies Allergies Allergy/AdvReac Type Severity Reaction Status Date / Time Sulfa (Sulfonamide Allergy Unknown hives Verified 01/01/21 16:04 Antibiotics) sulfamethoxazole Allergy Unknown HIVES Verified 01/01/21 16:04 [From BACTRIM] trimethoprim [From BACTRIM] Allergy Unknown HIVES Verified 01/01/21 16:04 SEASONAL ALLERGIES Allergy Unknown UNKNOWN Uncoded 09/18/20 17:16 Assessment & Plan Assessment & Plan (1) Schizoaffective disorder, depressive type: Status: Acute Code(s): F25.1 - Schizoaffective disorder, depressive type Plan Dhruv is a 26 y.o. male who carries a dx of schizoaffective disorder, depressed type. He presented to [facility] on 07/21/2021 due to complaints of chest pain since last night, has not been sleeping well. Urine tox screen negative. Denies recent alcohol use. In the ED, pt presented as internally preoccupied, thought blocking, was not an accurate historian. He endorsed AH. Reports he has been off psychotropic medication x 11/2020. Hx of multiple inpatient admissions for psychotic sx and non-adherence with meds/ OP services in the community. Plan: Pt says he wants to start an antidepressant, may benefit from higher dose of olanzapine for psychotic sx. Will defer to primary psych team. Q15 min safety checks, CV Monitor response to medications. Monitor for safety in the milieu. Discharge on stabilization. Patient seen. Chart reviewed. Discussed with team. Obtain collateral contact info?as needed 5/3 increase olanzapine to 20mg po qhs and continue 2.5mg po daily. 5/4 continue olanzapine, add ativan 1mg po TID for catatonia like s/s. I spent ___25___ minutes with the patient and/or on the patient floor today, greater than?50% of which was spent counseling/coordinating care. Reason for contiued inpatient stay Substantial Risk for: harm to self and inability to function
[2021-07-24] MEDS: Nicotine Polacrilex 2 MG GUM 4 MG BUCCAL (18:50)
[2021-07-24 20:56] VITALS: BP 114/57; PULSE 82; RESP 18; TEMP 36.6; O2SAT 97
[2021-07-24] MEDS: Melatonin 3 MG TABLET 9 MG PO (21:02)
[2021-07-24] MEDS: OLANZapine 10 MG TABLET 20 MG PO (21:02)
[2021-07-25 07:00] VITALS: BMI 33.0
[2021-07-25 08:15] VITALS: BP 122/58; PULSE 61; RESP 20; TEMP 36.3; O2SAT 99
[2021-07-25] MEDS: OLANZapine 2.5 MG TABLET PO (09:13)
[2021-07-25] MEDS: LORazepam 1 MG TABLET PO ×3 (09:14→21:19)
[2021-07-25] MEDS: hydrOXYzine HCL 50 MG TABLET PO ×3 (09:14→21:17)
[2021-07-25] MEDS: Nicotine Polacrilex 2 MG GUM 4 MG BUCCAL (19:18)
[2021-07-25] MEDS: OLANZapine 10 MG TABLET 20 MG PO (21:16)
[2021-07-25 21:17] VITALS: BP 125/67; PULSE 77; RESP 18; TEMP 36.7; O2SAT 100
[2021-07-25] MEDS: Melatonin 3 MG TABLET 9 MG PO (21:17)
[2021-07-26] MEDS: hydrOXYzine HCL 50 MG TABLET PO ×3 (09:21→21:27)
[2021-07-26] MEDS: LORazepam 1 MG TABLET PO ×3 (09:21→21:27)
[2021-07-26] MEDS: OLANZapine 2.5 MG TABLET PO (09:21)
[2021-07-26 09:38] VITALS: BP 103/60; PULSE 55; RESP 18; TEMP 36.4; O2SAT 97
--- NOTE | 2021-07-26 18:06 | P.PNPSI_ITS ---
Subjective Subjective Date of Service: 07/26/21 Reason For Visit: Schizoaffective disorder Interim History: Patient seen and discussed with team. Patient evaluated today and upon interview he reports Im doing better. He denies SE on medication, says I can still function throughout the day and the sleep medication gets me to sleep. Appetite is improved. Not using PRN ativan, worried about it being addictive. Denies AH. Denies HI, says those were just thoughts. Says he has paranoid thoughts and ideations of reference but they are just thoughts and I let them pass. ? In the milieu, patient is safe but isolative in behavior. Denies SI/SIB/HI upon inquiry. Denies irritability or assaultive ideation. Says he feels safe. Medication Compliance: Yes Side effects from medications: No Attending Groups: No Review of Systems Acute medical concerns: No Medical Review of Systems: unchanged Mental Status Exam Mental Status Exam Narrative: A&O except to situation. Grooming and hygiene improved, in hospital attire, somewhat overweight. Poor eye contact, inattentive. No Tics or Tremors. No abnormal involuntary movements. Guarded, difficult to engage. Non-pressured speech, non-spontaneous, quiet. Has prolonged speech latency. No dysarthria. Mood is ?better,? affect is less flat. Denies SI/SIB/HI upon inquiry. Endorses AH. Able to reality test. Thoughts are more organized. No known cognitive or memory impairment. Insight/ Judgment is limited but adequate. Diagnostics Vital Signs (24Hr): Vital Signs - 24 hr 07/25/21 21:17 07/26/21 09:38 Temperature 98.0 F 97.6 F Pulse Rate 77 55 Respiratory Rate 18 18 Blood Pressure 125/67 103/60 Pulse Oximetry 100 97 BMI result Body Mass Index 33.0 Labs Results: 07/21/21 07:59 07/21/21 07:59 Imaging Radiology Impressions: ITS Impressions Chest X-Ray 07/21/21 09:00 IMPRESSION: No acute cardiopulmonary process. Medications Medications Current Medications Acetaminophen (Acetaminophen 325 Mg Tablet) 650 mg PO Q6H PRN PRN Reason: Headache/Pain Mild Scale (1-3) Al Hydroxide/Mg Hydroxide (Magnesium Hydrox/Alum Hydrox 30 Ml Oral.Susp) 30 ml PO Q6H PRN PRN Reason: Heartburn/Nausea Albuterol Sulfate (Albuterol Sulfate 90 Mcg 8 Gm Inhaler) 1 puff INHALE QID PRN PRN Reason: shortness of breath or wheezing Hydroxyzine HCl (Hydroxyzine Hcl 50 Mg Tablet) 50 mg PO TID COUNTS INCLUDE 234 BEDS AT THE [facility] Last Admin: 07/26/21 14:53 Dose: 50 mg Documented by: Lorazepam (Lorazepam 0.5 Mg Tablet) 0.5 mg PO Q6H PRN PRN Reason: anxiety, agitation, catatonia Lorazepam (Lorazepam 1 Mg Tablet) 1 mg PO TID COUNTS INCLUDE 234 BEDS AT THE [facility] Last Admin: 07/26/21 14:53 Dose: 1 mg Documented by: Magnesium Hydroxide (Milk Of Magnesia 30 Ml Oral.Susp) 30 ml PO DAILY PRN PRN Reason: Constipation Melatonin (Melatonin 3 Mg Tablet) 9 mg PO BEDTIME COUNTS INCLUDE 234 BEDS AT THE [facility] Last Admin: 07/25/21 21:17 Dose: 9 mg Documented by: Nicotine Polacrilex (Nicotine Polacrilex 2 Mg Gum) 4 mg BUCCAL Q2H PRN PRN Reason: nicotine craving Last Admin: 07/25/21 19:18 Dose: 4 mg Documented by: Olanzapine (Olanzapine 2.5 Mg Tablet) 2.5 mg PO DAILY COUNTS INCLUDE 234 BEDS AT THE [facility] Last Admin: 07/26/21 09:21 Dose: 2.5 mg Documented by: Olanzapine (Olanzapine 10 Mg Tablet) 20 mg PO BEDTIME COUNTS INCLUDE 234 BEDS AT THE [facility] Last Admin: 07/25/21 21:16 Dose: 20 mg Documented by: Pharmacy Consult (Consult Rx Perform Med Rec) 1 each MISCELLANE ONCE PRN PRN Reason: Consult order Trazodone HCl (Trazodone Hcl 50 Mg Tablet) 50 mg PO BEDTIME PRN PRN Reason: Insomnia Allergies Allergies Allergy/AdvReac Type Severity Reaction Status Date / Time Sulfa (Sulfonamide Allergy Unknown hives Verified 01/01/21 16:04 Antibiotics) sulfamethoxazole Allergy Unknown HIVES Verified 01/01/21 16:04 [From BACTRIM] trimethoprim [From BACTRIM] Allergy Unknown HIVES Verified 01/01/21 16:04 SEASONAL ALLERGIES Allergy Unknown UNKNOWN Uncoded 09/18/20 17:16 Assessment & Plan Assessment & Plan (1) Schizoaffective disorder, depressive type: Status: Acute Code(s): F25.1 - Schizoaffective disorder, depressive type Plan Dhruv is a 26 y.o. male who carries a dx of schizoaffective disorder, depressed type. He presented to [facility] on 07/21/2021 due to complaints of chest pain since last night, has not been sleeping well. Urine tox screen negative. Denies recent alcohol use. In the ED, pt presented as internally preoccupied, thought blocking, was not an accurate historian. He endorsed AH. Reports he has been off psychotropic medication x 11/2020. Hx of multiple inpatient admissions for psychotic sx and non-adherence with meds/ OP services in the community. Plan: Pt says he wants to start an antidepressant, may benefit from higher dose of olanzapine for psychotic sx. Will defer to primary psych team. Q15 min safety checks, CV Monitor response to medications. Monitor for safety in the milieu. Discharge on stabilization. Patient seen. Chart reviewed. Discussed with team. Obtain collateral contact info?as needed 5/3 increase olanzapine to 20mg po qhs and continue 2.5mg po daily. 5/4 continue olanzapine, add ativan 1mg po TID for catatonia like s/s. 5/6 continue plan of care, appears to be responding to medications, affect more appropriate, feels safe, denies HI. I spent minutes with the patient and/or on the patient floor today, greater than?50% of which was spent counseling/coordinating care. Reason for contiued inpatient stay Substantial Risk for: inability to function and med/psych decompensation
[2021-07-26] MEDS: Nicotine Polacrilex 2 MG GUM 4 MG BUCCAL (19:23)
[2021-07-26 20:13] VITALS: BP 116/63; PULSE 82; RESP 16; TEMP 36.4; O2SAT 100
[2021-07-26] MEDS: OLANZapine 10 MG TABLET 20 MG PO (21:26)
[2021-07-26] MEDS: Melatonin 3 MG TABLET 9 MG PO (21:26)
[2021-07-27 06:00] VITALS: BP 113/64; PULSE 49; RESP 16; TEMP 35.8; O2SAT 97
[2021-07-27] MEDS: hydrOXYzine HCL 50 MG TABLET PO ×3 (09:33→20:29)
[2021-07-27] MEDS: OLANZapine 2.5 MG TABLET PO (09:33)
[2021-07-27] MEDS: LORazepam 1 MG TABLET PO ×2 (09:33→21:53)
[2021-07-27 20:05] VITALS: BP 130/60; PULSE 94; RESP 18; TEMP 36.2; O2SAT 99
[2021-07-27] MEDS: OLANZapine 10 MG TABLET 20 MG PO (20:28)
[2021-07-27] MEDS: Melatonin 3 MG TABLET 9 MG PO (20:29)
--- NOTE | 2021-07-27 21:10 | P.PNPSI_ITS ---
Subjective Subjective Date of Service: 07/27/21 Reason For Visit: Schizoaffective disorder Interim History: Patient seen and discussed with team. Reports he is feeling somewhat tired with both Ativan and Vistaril together. We discussed switching Ativan to PRN only. He reports he feels the medications have helped stabilize his mood and he feels better. Appetite is improved. Denies AH. Denies HI. Paranoia decreased. In the milieu, patient is safe but isolative in behavior. Denies SI/SIB/HI upon inquiry. Denies irritability or assaultive ideation. Says he feels safe. 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 Grooming and hygiene improved, in hospital attire, somewhat overweight. Poor eye contact, inattentive. No Tics or Tremors. No abnormal involuntary movements. Guarded, difficult to engage. Non-pressured speech, non-spontaneous, quiet. Has prolonged speech latency. No dysarthria. Mood is ?better,? affect is less flat. Denies SI/SIB/HI upon inquiry. Endorses AH. Able to reality test. Thoughts are more organized. No known cognitive or memory impairment. Insight/ Judgment is limited but adequate. Diagnostics Vital Signs (24Hr): Vital Signs - 24 hr 07/27/21 06:00 07/27/21 20:05 Temperature 96.5 F L 97.2 F Pulse Rate 49 L 94 Respiratory Rate 16 18 Blood Pressure 113/64 130/60 Pulse Oximetry 97 99 BMI result Body Mass Index 33.0 Labs Results: 07/21/21 07:59 07/21/21 07:59 Imaging Radiology Impressions: ITS Impressions Chest X-Ray 07/21/21 09:00 IMPRESSION: No acute cardiopulmonary process. Medications Medications Current Medications Acetaminophen (Acetaminophen 325 Mg Tablet) 650 mg PO Q6H PRN PRN Reason: Headache/Pain Mild Scale (1-3) Al Hydroxide/Mg Hydroxide (Magnesium Hydrox/Alum Hydrox 30 Ml Oral.Susp) 30 ml PO Q6H PRN PRN Reason: Heartburn/Nausea Albuterol Sulfate (Albuterol Sulfate 90 Mcg 8 Gm Inhaler) 1 puff INHALE QID PRN PRN Reason: shortness of breath or wheezing Hydroxyzine HCl (Hydroxyzine Hcl 50 Mg Tablet) 50 mg PO TID [facility] Last Admin: 07/27/21 20:29 Dose: 50 mg Documented by: Lorazepam (Lorazepam 1 Mg Tablet) 1 mg PO TID PRN PRN Reason: anxiety Magnesium Hydroxide (Milk Of Magnesia 30 Ml Oral.Susp) 30 ml PO DAILY PRN PRN Reason: Constipation Melatonin (Melatonin 3 Mg Tablet) 9 mg PO BEDTIME [facility] Last Admin: 07/27/21 20:29 Dose: 9 mg Documented by: Nicotine Polacrilex (Nicotine Polacrilex 2 Mg Gum) 4 mg BUCCAL Q2H PRN PRN Reason: nicotine craving Last Admin: 07/26/21 19:23 Dose: 4 mg Documented by: Olanzapine (Olanzapine 2.5 Mg Tablet) 2.5 mg PO DAILY [facility] Last Admin: 07/27/21 09:33 Dose: 2.5 mg Documented by: Olanzapine (Olanzapine 10 Mg Tablet) 20 mg PO BEDTIME [facility] Last Admin: 07/27/21 20:28 Dose: 20 mg Documented by: Trazodone HCl (Trazodone Hcl 50 Mg Tablet) 50 mg PO BEDTIME PRN PRN Reason: Insomnia Allergies Allergies Allergy/AdvReac Type Severity Reaction Status Date / Time Sulfa (Sulfonamide Allergy Unknown hives Verified 01/01/21 16:04 Antibiotics) sulfamethoxazole Allergy Unknown HIVES Verified 01/01/21 16:04 [From BACTRIM] trimethoprim [From BACTRIM] Allergy Unknown HIVES Verified 01/01/21 16:04 SEASONAL ALLERGIES Allergy Unknown UNKNOWN Uncoded 09/18/20 17:16 Assessment & Plan Assessment & Plan (1) Schizoaffective disorder, depressive type: Status: Acute Code(s): F25.1 - Schizoaffective disorder, depressive type Plan Dhruv is a 26 y.o. male who carries a dx of schizoaffective disorder, depressed type. He presented to [facility] ED on 07/21/2021 due to complaints of chest pain since last night, has not been sleeping well. Urine tox screen negative. Denies recent alcohol use. In the ED, pt presented as internally preoccupied, thought blocking, was not an accurate historian. He endorsed AH. Reports he has been off psychotropic medication x 11/2020. Hx of multiple inpatient admissions for psychotic sx and non-adherence with meds/ OP services in the community. Plan: Pt says he wants to start an antidepressant, may benefit from higher dose of olanzapine for psychotic sx. Will defer to primary psych team. Q15 min safety checks, CV Monitor response to medications. Monitor for safety in the milieu. Discharge on stabilization. Patient seen. Chart reviewed. Discussed with team. Obtain collateral contact info?as needed 07/23 increase olanzapine to 20mg po qhs and continue 2.5mg po daily. 07/24 continue olanzapine, add ativan 1mg po TID for catatonia like s/s. 07/26 continue plan of care, appears to be responding to medications, affect more appropriate, feels safe, denies HI. 07/27 continue treatment plan I spent minutes with the patient and/or on the patient floor today, greater than?50% of which was spent counseling/coordinating care. Reason for contiued inpatient stay Substantial Risk for: inability to function and rapid decompensation
[2021-07-27] MEDS: traZODone HCL 50 MG TABLET PO (21:53)
[2021-07-28 08:37] VITALS: BP 112/59; PULSE 74; RESP 16; TEMP 36.6; O2SAT 98
[2021-07-28] MEDS: hydrOXYzine HCL 50 MG TABLET PO ×3 (08:46→20:14)
[2021-07-28] MEDS: OLANZapine 2.5 MG TABLET PO (08:46)
[2021-07-28 08:47] VITALS: BP 99/58; PULSE 63; RESP 18; TEMP 36.4; O2SAT 98
[2021-07-28 18:00] VITALS: BP 120/62; PULSE 63; RESP 18; TEMP 36.7; O2SAT 100
--- NOTE | 2021-07-28 18:54 | P.PNPSI_ITS ---
Subjective Subjective Date of Service: 07/28/21 Reason For Visit: Schizoaffective disorder Interim History: Patient seen and discussed with team. Received Ativan with the Hydroxyzine this AM. He didn't know he could refuse same as we discussed yesterday. He was slepy this AM. He was educated again it was switched to PRN only if he is feeling extremely anxious. Patient verbalized understanding. Otherwise reports continued improvement in mood and paranoia. Appetite is improved. Denies AH. Denies HI. Paranoia decreased. In the milieu, patient is safe but isolative in behavior. Denies SI/SIB/HI upon inquiry. Denies irritability or assaultive ideation. Says he feels safe. 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 Grooming and hygiene improved, in hospital attire, somewhat overweight. Poor eye contact, inattentive. No Tics or Tremors. No abno rmal involuntary movements. Guarded, difficult to engage. Non-pressured speech, non-spontaneous, quiet. Has prolonged speech latency. No dysarthria. Mood is ?better,? affect is less flat. Denies SI/SIB/HI upon inquiry. Endorses AH. Able to reality test. Thoughts are more organized. No known cognitive or memory impairment. Insight/ Judgment is limited but adequate. Diagnostics Vital Signs (24Hr): Vital Signs - 24 hr 07/27/21 20:05 07/28/21 08:37 07/28/21 08:47 Temperature 97.2 F 97.9 F 97.6 F Pulse Rate 94 74 63 Respiratory Rate 18 16 18 Blood Pressure 130/60 112/59 L 99/58 L Pulse Oximetry 99 98 98 BMI result Body Mass Index 33.0 Labs Results: 07/21/21 07:59 07/21/21 07:59 Imaging Radiology Impressions: ITS Impressions Chest X-Ray 07/21/21 09:00 IMPRESSION: No acute cardiopulmonary process. Medications Medications Current Medications Acetaminophen (Acetaminophen 325 Mg Tablet) 650 mg PO Q6H PRN PRN Reason: Headache/Pain Mild Scale (1-3) Al Hydroxide/Mg Hydroxide (Magnesium Hydrox/Alum Hydrox 30 Ml Oral.Susp) 30 ml PO Q6H PRN PRN Reason: Heartburn/Nausea Albuterol Sulfate (Albuterol Sulfate 90 Mcg 8 Gm Inhaler) 1 puff INHALE QID PRN PRN Reason: shortness of breath or wheezing Hydroxyzine HCl (Hydroxyzine Hcl 50 Mg Tablet) 50 mg PO TID [facility] Last Admin: 07/28/21 14:55 Dose: 50 mg Documented by: Lorazepam (Lorazepam 1 Mg Tablet) 1 mg PO TID PRN PRN Reason: anxiety Last Admin: 07/27/21 21:53 Dose: 1 mg Documented by: Magnesium Hydroxide (Milk Of Magnesia 30 Ml Oral.Susp) 30 ml PO DAILY PRN PRN Reason: Constipation Melatonin (Melatonin 3 Mg Tablet) 9 mg PO BEDTIME [facility] Last Admin: 07/27/21 20:29 Dose: 9 mg Documented by: Nicotine Polacrilex (Nicotine Polacrilex 2 Mg Gum) 4 mg BUCCAL Q2H PRN PRN Reason: nicotine craving Last Admin: 07/26/21 19:23 Dose: 4 mg Documented by: Olanzapine (Olanzapine 2.5 Mg Tablet) 2.5 mg PO DAILY [facility] Last Admin: 07/28/21 08:46 Dose: 2.5 mg Documented by: Olanzapine (Olanzapine 10 Mg Tablet) 20 mg PO BEDTIME [facility] Last Admin: 07/27/21 20:28 Dose: 20 mg Documented by: Trazodone HCl (Trazodone Hcl 50 Mg Tablet) 50 mg PO BEDTIME PRN PRN Reason: Insomnia Last Admin: 07/27/21 21:53 Dose: 50 mg Documented by: Allergies Allergies Allergy/AdvReac Type Severity Reaction Status Date / Time Sulfa (Sulfonamide Allergy Unknown hives Verified 01/01/21 16:04 Antibiotics) sulfamethoxazole Allergy Unknown HIVES Verified 01/01/21 16:04 [From BACTRIM] trimethoprim [From BACTRIM] Allergy Unknown HIVES Verified 01/01/21 16:04 SEASONAL ALLERGIES Allergy Unknown UNKNOWN Uncoded 09/18/20 17:16 Assessment & Plan Assessment & Plan (1) Schizoaffective disorder, depressive type: Status: Acute Code(s): F25.1 - Schizoaffective disorder, depressive type Plan Dhruv is a 26 y.o. male who carries a dx of schizoaffective disorder, depressed type. He presented to [facility] on 07/21/2021 due to complaints of chest pain since last night, has not been sleeping well. Urine tox screen negative. Denies recent alcohol use. In the ED, pt presented as internally preoccupied, thought blocking, was not an accurate historian. He endorsed AH. Reports he has been off psychotropic medication x 11/2020. Hx of multiple inpatient admissions for psychotic sx and non-adherence with meds/ OP services in the community. Plan: Pt says he wants to start an antidepressant, may benefit from higher dose of olanzapine for psychotic sx. Will defer to primary psych team. Q15 min safety checks, CV Monitor response to medications. Monitor for safety in the milieu. Discharge on stabilization. Patient seen. Chart reviewed. Discussed with team. Obtain collateral contact info?as needed 07/23 increase olanzapine to 20mg po qhs and continue 2.5mg po daily. 07/24 continue olanzapine, add ativan 1mg po TID for catatonia like s/s. 07/26 continue plan of care, appears to be responding to medications, affect more appropriate, feels safe, denies HI. 07/27 continue treatment plan 07/28 continue treatment plan I spent minutes with the patient and/or on the patient floor today, greater than?50% of which was spent counseling/coordinating care. Reason for contiued inpatient stay Substantial Risk for: inability to function and rapid decompensation
[2021-07-28] MEDS: traZODone HCL 50 MG TABLET PO (20:13)
[2021-07-28] MEDS: OLANZapine 10 MG TABLET 20 MG PO (20:13)
[2021-07-28] MEDS: Melatonin 3 MG TABLET 9 MG PO (20:14)
[2021-07-28] MEDS: LORazepam 1 MG TABLET PO (20:24)
[2021-07-29] MEDS: hydrOXYzine HCL 50 MG TABLET PO ×3 (09:15→20:43)
[2021-07-29] MEDS: OLANZapine 2.5 MG TABLET PO (09:15)
[2021-07-29 09:38] VITALS: BP 123/63; PULSE 81; RESP 20; TEMP 36.1; O2SAT 99
--- NOTE | 2021-07-29 12:22 | P.PNPSI_ITS ---
Subjective Subjective Date of Service: 07/29/21 Reason For Visit: Schizoaffective disorder Subjective Notes: Conditional Voluntary Interim History: Patient seen and discussed with team. Pt reports less AH, he reports feeling less anxious. He reports sleeping and ea ting better as well. He is more talkative and interactive with peers and staff. He denies SI/HI. Per nursing, pt visible, has not attended assigned groups. 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 Grooming and hygiene improved, in hospital attire, somewhat overweight. Poor eye contact, inattentive. No Tics or Tremors. No abnormal involuntary movements. Behavior: cooperative. Non-pressured speech, more spontaneous, less delayed in responses. No dysarthria. Mood is ?better,? affect is less flat. Denies SI/SIB/HI upon inquiry. Endorses AH. Thoughts are more organized. No known cognitive or memory impairment. Insight/ Judgment is limited but adequate. Diagnostics Vital Signs (24Hr): Vital Signs - 24 hr 07/28/21 18:00 07/29/21 09:38 Temperature 98.1 F 97 F Pulse Rate 63 81 Respiratory Rate 18 20 Blood Pressure 120/62 123/63 Pulse Oximetry 100 99 BMI result Body Mass Index 33.0 Labs Results: 07/21/21 07:59 07/21/21 07:59 Imaging Radiology Impressions: ITS Impressions Chest X-Ray 07/21/21 09:00 IMPRESSION: No acute cardiopulmonary process. Medications Medications Current Medications Acetaminophen (Acetaminophen 325 Mg Tablet) 650 mg PO Q6H PRN PRN Reason: Headache/Pain Mild Scale (1-3) Al Hydroxide/Mg Hydroxide (Magnesium Hydrox/Alum Hydrox 30 Ml Oral.Susp) 30 ml PO Q6H PRN PRN Reason: Heartburn/Nausea Albuterol Sulfate (Albuterol Sulfate 90 Mcg 8 Gm Inhaler) 1 puff INHALE QID PRN PRN Reason: shortness of breath or wheezing Hydroxyzine HCl (Hydroxyzine Hcl 50 Mg Tablet) 50 mg PO TID [facility] Last Admin: 07/29/21 09:15 Dose: 50 mg Documented by: Lorazepam (Lorazepam 1 Mg Tablet) 1 mg PO TID PRN PRN Reason: anxiety Last Admin: 07/28/21 20:24 Dose: 1 mg Documented by: Magnesium Hydroxide (Milk Of Magnesia 30 Ml Oral.Susp) 30 ml PO DAILY PRN PRN Reason: Constipation Melatonin (Melatonin 3 Mg Tablet) 9 mg PO BEDTIME [facility] Last Admin: 07/28/21 20:14 Dose: 9 mg Documented by: Nicotine Polacrilex (Nicotine Polacrilex 2 Mg Gum) 4 mg BUCCAL Q2H PRN PRN Reason: nicotine craving Last Admin: 07/26/21 19:23 Dose: 4 mg Documented by: Olanzapine (Olanzapine 2.5 Mg Tablet) 2.5 mg PO DAILY [facility] Last Admin: 07/29/21 09:15 Dose: 2.5 mg Documented by: Olanzapine (Olanzapine 10 Mg Tablet) 20 mg PO BEDTIME [facility] Last Admin: 07/28/21 20:13 Dose: 20 mg Documented by: Trazodone HCl (Trazodone Hcl 50 Mg Tablet) 50 mg PO BEDTIME PRN PRN Reason: Insomnia Last Admin: 07/28/21 20:13 Dose: 50 mg Documented by: Allergies Allergies Allergy/AdvReac Type Severity Reaction Status Date / Time Sulfa (Sulfonamide Allergy Unknown hives Verified 01/01/21 16:04 Antibiotics) sulfamethoxazole Allergy Unknown HIVES Verified 01/01/21 16:04 [From BACTRIM] trimethoprim [From BACTRIM] Allergy Unknown HIVES Verified 01/01/21 16:04 SEASONAL ALLERGIES Allergy Unknown UNKNOWN Uncoded 09/18/20 17:16 Assessment & Plan Assessment & Plan (1) Schizoaffective disorder, depressive type: Status: Acute Code(s): F25.1 - Schizoaffective disorder, depressive type Plan Dhruv is a 26 y.o. male who carries a dx of schizoaffective disorder, depressed type. He presented to [facility] on 07/21/2021 due to complaints of chest pain since last night, has not been sleeping well. Urine tox screen negative. Denies recent alcohol use. In the ED, pt presented as internally preoccupied, thought blocking, was not an accurate historian. He endorsed AH. Reports he has been off psychotropic medication x 11/2020. Hx of multiple inpatient admissions for psychotic sx and non-adherence with meds/ OP services in the community. Plan: Pt says he wants to start an antidepressant, may benefit from higher dose of olanzapine for psychotic sx. Will defer to primary psych team. Q15 min safety checks, CV Monitor response to medications. Monitor for safety in the milieu. Discharge on stabilization. Patient seen. Chart reviewed. Discussed with team. Obtain collateral contact info?as needed 07/23 increase olanzapine to 20mg po qhs and continue 2.5mg po daily. 07/24 continue olanzapine, add ativan 1mg po TID for catatonia like s/s. 07/26 continue plan of care, appears to be responding to medications, affect more appropriate, feels safe, denies HI. 07/27 continue treatment plan 07/28 continue treatment plan 07/29 continue current medications. I spent minutes with the patient and/or on the patient floor today, greater than?50% of which was spent counseling/coordinating care. Reason for contiued inpatient stay Substantial Risk for: inability to function
[2021-07-29 18:00] VITALS: BP 115/65; PULSE 71; RESP 16; TEMP 36.6; O2SAT 98
[2021-07-29] MEDS: Nicotine Polacrilex 2 MG GUM 4 MG BUCCAL (19:04)
[2021-07-29] MEDS: Melatonin 3 MG TABLET 9 MG PO (20:42)
[2021-07-29] MEDS: OLANZapine 10 MG TABLET 20 MG PO (20:43)
[2021-07-30 08:52] VITALS: BP 101/62; PULSE 63; RESP 20; TEMP 36.4; O2SAT 98
[2021-07-30] MEDS: OLANZapine 2.5 MG TABLET PO (09:27)
[2021-07-30] MEDS: hydrOXYzine HCL 50 MG TABLET PO ×3 (09:27→20:26)
[2021-07-30] MEDS: Milk of Magnesia 30 ML ORAL.SUSP PO (11:04)
--- NOTE | 2021-07-30 11:41 | P.PNPSI_ITS ---
Subjective Subjective Date of Service: 07/30/21 Reason For Visit: Schizoaffective disorder Interim History: Patient seen and discussed with team. Pt was mostly in bed. He reports sleeping and eating well. He reports less AH. He reports mood improved. He denies SI/HI. speech minimally spontaneous. 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 Grooming and hygiene improved, in hospital attire, somewhat overweight. Poor eye contact, inattentive. No Tics or Tremors. No abnormal involuntary movements. Behavior: cooperative. Non-pressured speech, more spontaneous, less delayed in responses. No dysarthria. Mood is ?better,? affect is less flat. Denies SI/SIB/HI upon inquiry. Endorses AH. Thoughts are more organized. No known cognitive or memory impairment. Insight/ Judgment is limited but adequate. Diagnostics Vital Signs (24Hr): Vital Signs - 24 hr 07/30/21 08:52 07/30/21 18:00 Temperature 97.5 F 97.9 F Pulse Rate 63 63 Respiratory Rate 20 18 Blood Pressure 101/62 119/69 Pulse Oximetry 98 98 BMI result Body Mass Index 33.0 Labs Results: 07/21/21 07:59 07/21/21 07:59 Imaging Radiology Impressions: ITS Impressions Chest X-Ray 07/21/21 09:00 IMPRESSION: No acute cardiopulmonary process. Medications Medications Current Medications Acetaminophen (Acetaminophen 325 Mg Tablet) 650 mg PO Q6H PRN PRN Reason: Headache/Pain Mild Scale (1-3) Al Hydroxide/Mg Hydroxide (Magnesium Hydrox/Alum Hydrox 30 Ml Oral.Susp) 30 ml PO Q6H PRN PRN Reason: Heartburn/Nausea Albuterol Sulfate (Albuterol Sulfate 90 Mcg 8 Gm Inhaler) 1 puff INHALE QID PRN PRN Reason: shortness of breath or wheezing Hydroxyzine HCl (Hydroxyzine Hcl 50 Mg Tablet) 50 mg PO TID BAL Last Admin: 07/30/21 20:26 Dose: 50 mg Documented by: Lorazepam (Lorazepam 1 Mg Tablet) 1 mg PO TID PRN PRN Reason: anxiety Last Admin: 07/28/21 20:24 Dose: 1 mg Documented by: Magnesium Hydroxide (Milk Of Magnesia 30 Ml Oral.Susp) 30 ml PO DAILY PRN PRN Reason: Constipation Last Admin: 07/30/21 11:04 Dose: 30 ml Documented by: Melatonin (Melatonin 3 Mg Tablet) 9 mg PO BEDTIME BAL Last Admin: 07/30/21 20:26 Dose: 9 mg Documented by: Nicotine Polacrilex (Nicotine Polacrilex 2 Mg Gum) 4 mg BUCCAL Q2H PRN PRN Reason: nicotine craving Last Admin: 07/29/21 19:04 Dose: 4 mg Documented by: Olanzapine (Olanzapine 2.5 Mg Tablet) 2.5 mg PO DAILY BAL Last Admin: 07/30/21 09:27 Dose: 2.5 mg Documented by: Olanzapine (Olanzapine 10 Mg Tablet) 20 mg PO BEDTIME BAL Last Admin: 07/30/21 20:26 Dose: 20 mg Documented by: Trazodone HCl (Trazodone Hcl 50 Mg Tablet) 50 mg PO BEDTIME PRN PRN Reason: Insomnia Last Admin: 07/28/21 20:13 Dose: 50 mg Documented by: Allergies Allergies Allergy/AdvReac Type Severity Reaction Status Date / Time Sulfa (Sulfonamide Allergy Unknown hives Verified 01/01/21 16:04 Antibiotics) sulfamethoxazole Allergy Unknown HIVES Verified 01/01/21 16:04 [From BACTRIM] trimethoprim [From BACTRIM] Allergy Unknown HIVES Verified 01/01/21 16:04 SEASONAL ALLERGIES Allergy Unknown UNKNOWN Uncoded 09/18/20 17:16 Assessment & Plan Assessment & Plan (1) Schizoaffective disorder, depressive type: Status: Acute Code(s): F25.1 - Schizoaffective disorder, depressive type Plan Dhruv is a 26 y.o. male who carries a dx of schizoaffective disorder, depressed type. He presented to [facility] ED on 07/21/2021 due to complaints of chest pain since last night, has not been sleeping well. Urine tox screen negative. Denies recent alcohol use. In the ED, pt presented as internally preoccupied, thought blocking, was not an accurate historian. He endorsed AH. Reports he has been off psychotropic medication x 11/2020. Hx of multiple inpatient admissions for psychotic sx and non-adherence with meds/ OP services in the community. Plan: Pt says he wants to start an antidepressant, may benefit from higher dose of olanzapine for psychotic sx. Will defer to primary psych team. Q15 min safety checks, CV Monitor response to medications. Monitor for safety in the milieu. Discharge on stabilization. Patient seen. Chart reviewed. Discussed with team. Obtain collateral contact info?as needed 07/23 increase olanzapine to 20mg po qhs and continue 2.5mg po daily. 07/24 continue olanzapine, add ativan 1mg po TID for catatonia like s/s. 07/26 continue plan of care, appears to be responding to medications, affect more appropriate, feels safe, denies HI. 07/27 continue treatment plan 07/28 continue treatment plan 07/29 continue current medications. 07/30 continue current medications. I spent minutes with the patient and/or on the patient floor today, greater than?50% of which was spent counseling/coordinating care. Reason for contiued inpatient stay Substantial Risk for: inability to function
[2021-07-30 18:00] VITALS: BP 119/69; PULSE 63; RESP 18; TEMP 36.6; O2SAT 98
[2021-07-30] MEDS: Melatonin 3 MG TABLET 9 MG PO (20:26)
[2021-07-30] MEDS: OLANZapine 10 MG TABLET 20 MG PO (20:26)
--- NOTE | 2021-07-31 08:40 | P.PNPSI_ITS ---
Subjective Subjective Date of Service: 07/30/21 Reason For Visit: Schizoaffective disorder Subjective Notes: Conditional Voluntary Interim History: Patient seen and discussed with team. Pt was mostly in bed. He reports sleeping and eating well. He reports less AH. He reports mood improved. He denies SI/HI. speech minimally spontaneous. 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 Grooming and hygiene improved, in hospital attire, somewhat overweight. Poor eye contact, inattentive. No Tics or Tremors. No abnormal involuntary movements. Behavior: cooperative. Non-pressured speech, more spontaneous, less delayed in responses. No dysarthria. Mood is ?better,? affect is less flat. Denies SI/SIB/HI upon inquiry. Endorses AH. Thoughts are more organized. No known cognitive or memory impairment. Insight/ Judgment is limited but adequate. Diagnostics Vital Signs (24Hr): Vital Signs - 24 hr 07/30/21 08:52 07/30/21 18:00 Temperature 97.5 F 97.9 F Pulse Rate 63 63 Respiratory Rate 20 18 Blood Pressure 101/62 119/69 Pulse Oximetry 98 98 BMI result Body Mass Index 33.0 Labs Results: 07/21/21 07:59 07/21/21 07:59 Imaging Radiology Impressions: ITS Impressions Chest X-Ray 07/21/21 09:00 IMPRESSION: No acute cardiopulmonary process. Medications Medications Current Medications Acetaminophen (Acetaminophen 325 Mg Tablet) 650 mg PO Q6H PRN PRN Reason: Headache/Pain Mild Scale (1-3) Al Hydroxide/Mg Hydroxide (Magnesium Hydrox/Alum Hydrox 30 Ml Oral.Susp) 30 ml PO Q6H PRN PRN Reason: Heartburn/Nausea Albuterol Sulfate (Albuterol Sulfate 90 Mcg 8 Gm Inhaler) 1 puff INHALE QID PRN PRN Reason: shortness of breath or wheezing Hydroxyzine HCl (Hydroxyzine Hcl 50 Mg Tablet) 50 mg PO TID BAL Last Admin: 07/30/21 20:26 Dose: 50 mg Documented by: Lorazepam (Lorazepam 1 Mg Tablet) 1 mg PO TID PRN PRN Reason: anxiety Last Admin: 07/28/21 20:24 Dose: 1 mg Documented by: Magnesium Hydroxide (Milk Of Magnesia 30 Ml Oral.Susp) 30 ml PO DAILY PRN PRN Reason: Constipation Last Admin: 07/30/21 11:04 Dose: 30 ml Documented by: Melatonin (Melatonin 3 Mg Tablet) 9 mg PO BEDTIME BAL Last Admin: 07/30/21 20:26 Dose: 9 mg Documented by: Nicotine Polacrilex (Nicotine Polacrilex 2 Mg Gum) 4 mg BUCCAL Q2H PRN PRN Reason: nicotine craving Last Admin: 07/29/21 19:04 Dose: 4 mg Documented by: Olanzapine (Olanzapine 2.5 Mg Tablet) 2.5 mg PO DAILY BAL Last Admin: 07/30/21 09:27 Dose: 2.5 mg Documented by: Olanzapine (Olanzapine 10 Mg Tablet) 20 mg PO BEDTIME BAL Last Admin: 07/30/21 20:26 Dose: 20 mg Documented by: Trazodone HCl (Trazodone Hcl 50 Mg Tablet) 50 mg PO BEDTIME PRN PRN Reason: Insomnia Last Admin: 07/28/21 20:13 Dose: 50 mg Documented by: Allergies Allergies Allergy/AdvReac Type Severity Reaction Status Date / Time Sulfa (Sulfonamide Allergy Unknown hives Verified 01/01/21 16:04 Antibiotics) sulfamethoxazole Allergy Unknown HIVES Verified 01/01/21 16:04 [From BACTRIM] trimethoprim [From BACTRIM] Allergy Unknown HIVES Verified 01/01/21 16:04 SEASONAL ALLERGIES Allergy Unknown UNKNOWN Uncoded 09/18/20 17:16 Assessment & Plan Assessment & Plan (1) Schizoaffective disorder, depressive type: Status: Acute Code(s): F25.1 - Schizoaffective disorder, depressive type Plan Dhruv is a 26 y.o. male who carries a dx of schizoaffective disorder, depressed type. He presented to [facility] on 07/21/2021 due to complaints of chest pain since last night, has not been sleeping well. Urine tox screen negative. Denies recent alcohol use. In the ED, pt presented as internally preoccupied, thought blocking, was not an accurate historian. He endorsed AH. Reports he has been off psychotropic medication x 11/2020. Hx of multiple inpatient admissions for psychotic sx and non-adherence with meds/ OP services in the community. Plan: Pt says he wants to start an antidepressant, may benefit from higher dose of olanzapine for psychotic sx. Will defer to primary psych team. Q15 min safety checks, CV Monitor response to medications. Monitor for safety in the milieu. Discharge on stabilization. Patient seen. Chart reviewed. Discussed with team. Obtain collateral contact info?as needed 07/23 increase olanzapine to 20mg po qhs and continue 2.5mg po daily. 07/24 continue olanzapine, add ativan 1mg po TID for catatonia like s/s. 07/26 continue plan of care, appears to be responding to medications, affect more appropriate, feels safe, denies HI. 07/27 continue treatment plan 07/28 continue treatment plan 07/29 continue current medications. I spent minutes with the patient and/or on the patient floor today, greater than?50% of which was spent counseling/coordinating care. Reason for contiued inpatient stay Substantial Risk for: inability to function
[2021-07-31] MEDS: OLANZapine 2.5 MG TABLET PO (09:10)
[2021-07-31] MEDS: hydrOXYzine HCL 50 MG TABLET PO (09:10)
[2021-07-31 09:30] VITALS: BP 115/71; PULSE 77; RESP 18; TEMP 36.2; O2SAT 99
--- NOTE | 2021-07-31 09:38 | P.DS_ITS ---
DS: Providers Provider Date of Service: 07/31/21 Date of admission: 07/22/21 17:37 Primary care physician: MEREDITH MontañoPKenna DS: Diagnosis Discharge Diagnosis (1) Schizoaffective disorder, depressive type: Status: Acute DS: Medications Discharge Medications Home Medications: Home Medications Medication Instructions Recorded Confirmed hydroxyzine pamoate 50 mg capsule 50 mg PO TID 07/21/21 07/21/21 melatonin 3 mg tablet 9 mg PO BEDTIME 07/21/21 07/21/21 olanzapine 2.5 mg tablet 2.5 mg PO DAILY 07/21/21 07/21/21 olanzapine 5 mg tablet 5 mg PO BEDTIME 07/21/21 07/21/21 Previous Rx's Medication Instructions Recorded albuterol sulfate 90 mcg/actuation 1 inh INHALATION QID PRN 30 Days 07/28/20 aerosol inhaler #8.5 g Mental Status Exam Mental Status Exam Narrative: A&O except to situation. Grooming and hygiene improved, in hospital attire, somewhat overweight. No Tics or Tremors. No abnormal involuntary movements. Behavior: cooperative. Non-pressured speech, more spontaneous, less delayed in responses. No dysarthria. Mood is ?better,? affect is congruent but constricted at baseline. Denies SI/SIB/HI upon inquiry. Endorses AH. Thoughts are more organized. No known cognitive or memory impairment. Insight/ Judgment is limited but adequate. Data Imaging Diagnostic Imaging Impressions Chest X-Ray 07/21/21 09:00 IMPRESSION: No acute cardiopulmonary process. DS: Summary Hospital Course Hospital Course: HPI: Dhruv is a 26 y.o. male who carries a dx of schizoaffective disorder, depressed type. He presented to [facility] ED on 07/21/2021 due to complaints of chest pain since last night, has not been sleeping well. Urine tox screen negative. Denies recent alcohol use. In the ED, pt presented as internally preoccupied, thought blocking, was not an accurate historian. He endorsed AH. Reports he has been off psychotropic medication x 11/2020. I evaluated the pt this evening and upon interview he reports he is ?pretty anxious.? He presents with latent responses, thought blocked, responding to internal stimuli. Denies SI/SIB. Says he feels safe. Currently denies AH. Says prior to coming to the hospital he has not been sleeping but he has been getting sleep since being re-started on medication, back on olanzapine 10 mg at bedtime and 2.5 mg in the morning. Says he stopped medication due to feeling ?stiff,? although currently denies SE. Says his depression is ?back and forth? and his moods ?shift from high to low? and that ?I can get sad.? Denies aggression or agitation. However, says his ?thoughts can get violent.? He denies intent to act of them, ?they just pass.? Says his thoughts are directed at family members who have taken advantage of him, ?I meditate on it a lot? and says ?it would make me happy to see them suffer,? thinks about torturing them. Says he thinks they misunderstand him. When asked how he feels taken advantage of, pt says ?I dont like to fucking talk about it.?? HOSPITAL COURSE On the unit, Mr. Caldwell was admitted on a CV and placed on 15 minutes checks for safety. On the unit, pt reports hearing voices at times telling to hurt himself. He denied suicidal or homicidal ideation. After discussing risks, benefits and alternative treatment options, pt agreed to increase olanzapine which he tolerated well and was increased to 20mg po qhs. His affect gradually presented as much less guarded and suspicious. He was increasingly more visible on the unit and social with peers. He was sleeping and eating well. He denied SI/HI. He also reported less AH. Collateral information gathered from his mother who agrees pt appeared in much improved condition and denied any safety concerns at time of discharge. Pt to go to mother's house. There were no incidences of disruptive behaviors nor use of restraints. Status at Discharge Cognitive/behavioral status at discharge: Pt with less guarded affect. Pt reports less AH/VH. No SI/HI. He is more visible in the unit, social with select peers. No signs of aggression towards self or others. No overt delusional content reported or noted. Functional status at discharge: independent ambulation Overall status at discharge: patient is progressing back to baseline Time Spent with Patient Time attestation: Total time spent providing and/or coordinating discharge services: Time spent: Greater than 30 minutes Discharge Plan Discharge Patient Disposition: Home, Self-Care Discharge Diagnosis: schizophrenia Referrals: Daylin Tucker (therapist) [Other] - 08/02/21 1:00 pm (In office appointment. Referral submitted for case management, to help with housing applications, your therapist will follow up on setting you up with the family independence case manager) Selina Holcomb (psychiatrist) [Other] - 08/26/21 11:20 am (Telehealth appointment) Selina Holcomb (psychiatrist) [Other] - 09/24/21 11:40 am (Telehealth appointment) Dhruv Childress, ANNALISA- [Primary Care Provider] - 1 Week (provider will call to book follow up appt ) Discharge Medications: New nicotine (polacrilex) 2 mg Gum 4 mg buccal Q2H PRN (Reason: nicotine craving) Qty: 30 0RF olanzapine 10 mg Tablet 20 mg PO BEDTIME Qty: 60 0RF melatonin 3 mg Tablet 9 mg PO BEDTIME Qty: 90 0RF olanzapine 2.5 mg Tablet 2.5 mg PO DAILY Qty: 30 0RF Continued albuterol sulfate 90 mcg/actuation HFA aerosol inhaler 1 inh inhalation QID PRN (Reason: shortness of breath or wheezing) 30 Days Qty: 8.5 2RF Discontinued olanzapine 5 mg Tablet 5 mg PO BEDTIME melatonin 3 mg Tablet 9 mg PO BEDTIME olanzapine 2.5 mg Tablet 2.5 mg PO DAILY No Action omega-3 acid ethyl esters 1 gram capsule 1 cap PO BID 30 Days Qty: 60 2RF Discharge Orders: Discharge Order (Routine); Ordered 07/31/21 Ordered By: Melida Villavicencio Diet: regular diet Activity on Discharge: As tolerated Stand Alone Forms: Patient Portal Discharge page, Community Support Care Plan Goals: 1. Maintain mood No SI/HI No signs of aggression towards self or others. Health Concerns: Follow up with PCP Plan of Treatment: 1. Take medications as prescribed. 2. Go to nearest ED or call 911 in event of emergency Assessment: Pt with brighter but still constricted at baseline. No SI/HI. No signs of aggression towards self or others. He reports less AH. No overt delusional content reported or noted. Discharge Date/Time: 07/31/21 13:01
== END 2021-07-31 13:01 | disposition home or self-care (01) | DRG 885 ==
LOC: HO.ED 07-22 11:08 → HO.PADLT16 07-22 17:42
PROVIDERS: Clinical Nurse Specialist Psychiatric/Mental Health, Adult; Physician Assistant Medical; Admitting Provider Psychiatry & Neurology Psychiatry; Emergency Provider Emergency Medicine; PCP Nurse Practitioner Family; Visit Provider Social Worker
DX: F25.1 Schizoaffective disorder, depressive type (principal); R45.851 Suicidal ideations; J45.909 Unspecified asthma, uncomplicated; F17.210 Nicotine dependence, cigarettes, uncomplicated; G47.00 Insomnia, unspecified; Z71.6 Tobacco abuse counseling; Z20.822 Contact with and (suspected) exposure to COVID-19; Z88.2 Allergy status to sulfonamides; Z79.899 Other long term (current) drug therapy
CPT/HCPCS: 36415; 71046; 80048; 80061; 80307; 82077; 82607; 82746; 83036; 83735; 84439; 84443; 84484; 85025; 87635; 93005; 99285

== ENCOUNTER 2021-08-12 14:44 | Outpatient (REF) | payer OTHER, SELFPAY ==
[2021-08-12 16:33] LABS: MANUAL DIFF FLAG NO
[2021-08-12 16:40] LABS: Basophils Percent Auto 0.5 % (0-2); Eosinophils Absolute Auto 0.2 X10*3/uL (0.0-0.4); Eosinophils Percent Auto 2.9 % (0-4); Hematocrit 48.9 % (42.0-52.0); Hemoglobin 16.4 g/dl (14.0-18.0); Imm Gran Abs Auto 0.02 X10*3/uL (0.00-0.03); Imm Gran Pct Auto 0.3 % (0.0-0.4); Lymphocytes Absolute Auto 1.8 X10*3/uL (1.2-4.9); Lymphocytes Percent Auto 29.8 % (20-40); Mean Corpuscular HGB Conc 33.5 g/dl (31.0-36.0); Mean Corpuscular Hemoglobin 29.5 pg (27.0-33.0); Mean Corpuscular Volume 88.1 fL (80.0-98.0); Monocytes Absolute Auto 0.5 X10*3/uL (0.1-1.2); Monocytes Percent Auto 8.6 % (2-11); Neutrophils Absolute Auto 3.6 x10*3/uL (2.0-8.3); Neutrophils Percent Auto 57.9 % (45-73); Platelet Count 205 X10*3/uL (160-400); Red Blood Count 5.55 X10*6/uL (4.60-5.80); Red Cell Distribution Width 12.3 % (11.0-16.0); White Blood Count 6.2 X10*3/uL (4.8-10.8)
[2021-08-12 16:41] LABS: Appearance Urine CLEAR; Color Urine YELLOW; Glucose Urine UA NEG (NEG); Leukocyte Esterase Urine NEG (NEG); Nitrite Urine NEG (NEG); Specific Gravity - Urine <= 1.005 (1.005-1.025); Urine Blood NEG (NEG); Urine Ketones NEG (NEG); Urine Protein NEG (NEG-TRACE)
[2021-08-12 17:02] LABS: Alanine Aminotransferase 352 U/L (0-40); Albumin Level 4.2 g/dL (3.5-5.0); Alkaline Phosphatase 52 U/L (39-117); Anion Gap 13 (12-20); Aspartate Amino Transferase 179 U/L (5-37); Bilirubin Total 0.5 mg/dL (0.0-1.0); Blood Urea Nitrogen 9 mg/dL (9-16); Calcium 9.5 mg/dL (8.4-10.2); Carbon Dioxide 28 mmol/L (22-29); Chloride 103 mmol/L (96-108); Cholesterol 205 mg/dL; Estimated Glomerular Filt Rate > 60; Glucose Fasting 94 mg/dL (60-99); HDL Cholesterol 52 mg/dL; LDL Cholesterol Calculated 93 mg/dl; Potassium 4.1 mmol/L (3.3-5.1); Sodium 140 mmol/L (135-145); Total Protein 7.3 g/dL (6.5-8.0); Triglycerides 302 mg/dL
[2021-08-12 17:10] LABS: TSH reflex Free T4 1.67 uIU/mL (0.32-4.0)
== END 2021-08-12 14:45 | disposition home or self-care (01) ==
LOC: HO.HMGCLDS 14:44
PROVIDERS: PCP Nurse Practitioner Family; Visit Provider Nurse Practitioner Family
DX: F25.1 Schizoaffective disorder, depressive type (principal)
CPT/HCPCS: 36415; 80053; 80061; 81003; 84443; 85025

== ENCOUNTER 2021-08-27 11:44 | Outpatient (REF) | payer OTHER, SELFPAY ==
[2021-08-27 14:10] LABS: Alanine Aminotransferase 85 U/L (0-40); Albumin Level 4.3 g/dL (3.5-5.0); Alkaline Phosphatase 55 U/L (39-117); Aspartate Amino Transferase 44 U/L (5-37); Bilirubin Direct < 0.2 mg/dL (0.0-0.5); Bilirubin Total 0.4 mg/dL (0.0-1.0); Total Protein 7.3 g/dL (6.5-8.0)
[2021-08-28 06:49] LABS: HBS Num1 1.79 mIU/mL (0-7.99); HBc Num1 0.08 S/CO (0.00-0.79); HBsAGNum1 0.15 S/CO (0.00-0.99); Hepatitis B Core Antibody Nonreactive (Nonreactive); Hepatitis B Surface Antigen Negative (Negative); ~Hepatitis A Antibody IgM Nonreactive (Nonreactive); ~Hepatitis B Surface Antibody NONREACTIVE (Nonreactive); ~Hepatitis C Antibody Nonreactive (Nonreactive)
== END 2021-08-27 11:45 | disposition home or self-care (01) ==
LOC: HO.HMGCLDS 11:44
PROVIDERS: PCP Nurse Practitioner Family; Visit Provider Nurse Practitioner Family
DX: R74.8 Abnormal levels of other serum enzymes (principal)
CPT/HCPCS: 36415; 80076; 86704; 86706; 86709; 86803; 87340

== ENCOUNTER 2023-01-15 13:44 | Outpatient (REF) | payer OTHER, SELFPAY ==
[2023-01-15 16:07] LABS: MANUAL DIFF FLAG NO
[2023-01-15 16:15] LABS: Basophils Percent Auto 0.2 % (0-2); Eosinophils Absolute Auto 0.1 X10*3/uL (0.0-0.4); Hematocrit 47.2 % (42.0-52.0); Hemoglobin 15.9 g/dl (14.0-18.0); Imm Gran Abs Auto 0.03 X10*3/uL (0.00-0.03); Imm Gran Pct Auto 0.3 % (0.0-0.4); Lymphocytes Absolute Auto 2.3 X10*3/uL (1.2-4.9); Mean Corpuscular HGB Conc 33.7 g/dl (31.0-36.0); Mean Corpuscular Hemoglobin 29.8 pg (27.0-33.0); Mean Corpuscular Volume 88.4 fL (80.0-98.0); Mean Platelet Volume 11.3 fL (9.4-12.4); Monocytes Absolute Auto 0.6 X10*3/uL (0.1-1.2); Monocytes Percent Auto 6.8 % (2-11); Neutrophils Absolute Auto 6.1 x10*3/uL (2.0-8.3); Neutrophils Percent Auto 66.7 % (45-73); Platelet Count 243 X10*3/uL (160-400); Red Blood Count 5.34 X10*6/uL (4.60-5.80); Red Cell Distribution Width 13.2 % (11.0-16.0); White Blood Count 9.1 X10*3/uL (4.8-10.8)
[2023-01-15 16:31] LABS: Alanine Aminotransferase 58 U/L (0-40); Albumin Level 4.2 g/dL (3.5-5.0); Alkaline Phosphatase 65 U/L (39-117); Anion Gap 14 (12-20); Aspartate Amino Transferase 33 U/L (5-37); Bilirubin Total 0.3 mg/dL (0.0-1.0); Blood Urea Nitrogen 8 mg/dL (9-16); Calcium 9.8 mg/dL (8.4-10.2); Carbon Dioxide 25 mmol/L (22-29); Chloride 104 mmol/L (96-108); Cholesterol 197 mg/dL (<200); Estimated Glomerular Filt Rate > 60; Glucose Fasting 99 mg/dL (60-99); HDL Cholesterol 38 mg/dL (>40); LDL Cholesterol Calculated 93 mg/dL (<100); Potassium 3.9 mmol/L (3.3-5.1); Sodium 139 mmol/L (135-145); Total Protein 7.4 g/dL (6.5-8.0); Triglycerides 330 mg/dL (<150)
== END 2023-01-15 13:45 | disposition home or self-care (01) ==
LOC: HO.HMGCLDS 13:44
PROVIDERS: PCP Nurse Practitioner Family; Visit Provider Nurse Practitioner Family
DX: E78.5 Hyperlipidemia, unspecified (principal); R74.8 Abnormal levels of other serum enzymes
CPT/HCPCS: 36415; 80053; 80061; 84443; 85025

== ENCOUNTER 2023-01-19 10:58 | Outpatient (AMB) | payer OTHER, SELFPAY ==
--- NOTE | 2023-01-19 11:03 | A.OFFPC_ITS ---
Vital Signs 01/19/23 11:06 Height 5 ft 8 in Weight 326 lb BMI 49.6 BP 106/80 Blood Pressure Location Rt brachial Position Sitting Pulse 90 Pulse Source Pulse Oximeter Pulse Oximetry (%) 95 Oxygen Delivery Method Room Air Intake Visit Reasons: Annual PE Allergies Sulfa (Sulfonamide Antibiotics) Allergy (Unknown, Verified 01/19/23 11:06) hives sulfamethoxazole [From BACTRIM] Allergy (Unknown, Verified 01/19/23 11:06) HIVES trimethoprim [From BACTRIM] Allergy (Unknown, Verified 01/19/23 11:06) HIVES SEASONAL ALLERGIES Allergy (Unknown, Uncoded 07/17/22 10:44) UNKNOWN Medication List - Last Reconciled 01/19/23 by ANNALISA Bland-SHONDA albuterol sulfate 90 mcg/actuation 1 inh inhalation QID PRN 30 days cetirizine 10 mg PO DAILY melatonin 9 mg (3 x 3 mg) PO BEDTIME multivitamin 1 tab PO DAILY olanzapine 2.5 mg PO DAILY olanzapine 20 mg PO BEDTIME omega-3 acid ethyl esters 1 cap PO BID 30 days Tobacco use date assessed: 07/17/22 Dental Screening Dental Screen Date: 01/19/23 Did you have a dental visit in the last 12 months?: No Did you have a dental problem in the last 6 months where you did not have access to dental care?: No Was dental information given to patient?: No HPI Annual PE HPI Details Pt is here for a PE. Labs were already performed. Pt has a therapist and a psychiatrist. Trigs were elevated. Will increase omega 3 acid ethyl esters from 1 cap bid to 2 caps bid. [facility] Medical History Asthma Schizoaffective disorder Family History Father No problems noted. Mother No problems noted. Sister No problems noted. Maternal Uncle Substance use disorder Family/Other Substance use disorder Social History Household Members: Family Housing: House Do you presently have visiting nurse or other home services: No Alcohol intake: current Alcohol intake frequency: 0-2 drinks per day Patient Tobacco Use Status: Former Tobacco user Quit Date: quit 11/12/21 Tobacco use type: Cigarette e-Cigarette/Vaping Use: Never Used Second Hand Smoke Exposure: No service: No Sexual orientation: Straight/Heterosexual Cognitive needs: No Hearing needs: No Vision needs: No Questionnaire PHQ-9 Over the last 2 weeks, how often have you been bothered by any of the following problems? 1. Little interest or pleasure in doing things: not at all 2. Feeling down, depressed, or hopeless: not at all 3. Trouble falling or staying asleep, or sleeping too much: more than half the days 4. Feeling tired or having little energy: more than half the days 5. Poor appetite or overeating: more than half the days 6. Feeling bad about yourself - or that you are a failure or have let yourself or your family down: not at all 7. Trouble concentrating on things, such as reading the newspaper or watching television: not at all 8. Moving or speaking so slowly that other people could have noticed. Or the opposite - being so fidgety or restless that you have been moving around a lot more than usual: not at all 9. Thoughts that you would be better off or of hurting yourself in some way: not at all Total score: 6 Depression Screening Interpretation: Negative Depression Screening Done: Yes 29178 - PHQ-9 Billing: Yes Source: Developed by Drs. Omar Lucero, Rubina Melara, Nciola Suh and colleagues, with an educational conrad from [employer]. Thrive Questionnaire Date Thrive assessed: 01/19/23 I am a: Patient What is your living situation today?: I have a place to live, but I am worried about losing it in the future Within the past 12 months, did the food you bought not last and you didn't have the money to get more?: Sometimes True Within the past 12 months, did you worry whether your food would run out before you got money to buy more?: Never true Do you have trouble paying for medicines?: No Do you have trouble getting transportation to medical appointments?: No Do you have trouble paying your heating and electricity bill?: No Do you have trouble taking care of your child, family member or friend?: No Do you have trouble with day-to-day activities such as bathing, preparing meals, shopping, managing finances, etc.?: No Are you currently unemployed and looking for a job?: Yes Are you interested in more education?: Yes ALEXX-7 AMB Questionnaire ALEXX-7 Date ALEXX - 7 assessed: 01/19/23 Feeling nervous, anxious, or on edge: 0 = Not at all Not being able to stop or control worryin = Not at all Worrying too much about different things: 0 = Not at all Trouble relaxin = Not at all Being so restless that it is hard to sit still: 0 = Not at all Becoming easily annoyed or irritable: 0 = Not at all Feeling afraid as if something awful might happen: 0 = Not at all Total ALEXX-7 score (0-4 normal; 5-9 mild; 10-14 moderate; 15-21 severe): 0 Source: Developed by Drs. Omar Lucero, Rubina Melara, Nicola barahona nd colleagues, with an educational conrad from [employer]. ALEXX-7 Assessment Billing ALEXX-7 Assessment Tool: ALEXX-7 Assessment 24405 Review of Systems Const Denies chills and Denies fever(s) Eyes Denies blurry vision ENT Denies vertigo, Denies dizziness and Denies sore throat Card Denies chest pain at rest, Denies chest pain with activity, Denies diaphoresis, Denies dyspnea and Denies dyspnea on exertion Resp Denies cough, Denies dyspnea, Denies dyspnea on exertion and Denies wheezing GI Denies abdominal pain, Denies melena, Denies hematochezia, Denies constipation, Denies diarrhea and Denies loose stools Denies hematuria Musc Denies numbness and Denies tingling Skin/Breast Denies lesions Neuro Denies vertigo, Denies dizziness, Denies numbness and Denies tingling Psych Denies anxiety, Denies depression, Denies homicidal ideation, Denies suicidal ideation and Denies other (substance abuse) Aller/Immun Denies wheezing Physical exam (Primary Care) Vital Signs: Last Vital Signs Pulse 90 01/19/23 11:06 BP 106/80 01/19/23 11:06 Pulse Ox 95 01/19/23 11:06 Oxygen Delivery Method Room Air 01/19/23 11:06 BMI result Body Mass Index 49.6 Tobacco/Smoking Status: Tobacco use Status Tobacco use date assessed 07/17/22 01/19/23 11:04 Patient Tobacco Use Status Former Tobacco user 01/19/23 11:04 Tobacco use type Cigarette 01/19/23 11:04 e-Cigarette/Vaping Use Never Used 01/19/23 11:04 Depression Screening Interpretation: Negative Thrive Assessment: Date of Thrive Assessment Date Thrive assessed 08/07/21 01/19/23 11:04 Const General: cooperative Nutritional Appearance: obese morbidly obese Orientation/consciousness: patient oriented x3 HENMT Head: Yes normal to inspection, Yes normocephalic and Yes atraumatic Ears: TM's normal bilaterally Eyes General: appearance normal, both eyes and all related structures Alignment and Position: alignment normal and position normal Neck Neck: Yes normal visual inspection and Yes no lymphadenopathy Thyroid: Thyroid normal Resp Effort & Inspection: normal respiratory effort Auscultation: clear to auscultation bilaterally Cardio Rate: regular rate Rhythm: regular rhythm Heart sounds: S1 normal heart sound present, S2 normal heart sound present and no murmurs GI Palpation (GI): Soft to palpation and nontender Auscultation: normal bowel sounds Male General Exam: Yes normal external exam Penis: normal penis Scrotum: scrotum normal, testes descended bilaterally and no inguinal hernias Testes: no testicular mass Skin Rashes: no rashes Neuro General: patient oriented x3, moves all extremities, no focal motor deficits and deep tendon reflexes 2+ bilaterally Romberg Test: Negative Psych Appearance: grossly normal Mental Status: mental status grossly normal Speech and movement: Normal speech and movement present Affect: normal affect Attitude: cooperative Thought process: Normal thought process present Thought content: Normal thought content present Insight: Good insight present (Psych) Judgement: Good judgement present (Psych) Assessment and Plan Assessment & Plan (1) Physical exam: Code(s): Z00. - Encounter for general adult medical examination without abnormal findings Plan: Labs already performed Plan The patient agreed to the use of a medical sales representative for this encounter. Scribed for ESTELA Norton by Liseth Han medical sales representative, on 01/19/2023 at 11:10 EST. Orders: Orders Comprehensive [place]. Panel Fast Today Z. - Encounter for general adult medical examination without abnormal findings TSH reflex Free T4 Today Z00.00 - Encounter for general adult medical examination without abnormal findings Lipid Panel Today Z00.00 - Encounter for general adult medical examination without abnormal findings Complete Blood Count Auto Diff Today Z00.00 - Encounter for general adult medical examination without abnormal findings UA CC w/rflx Micro + Cult Today Z00.00 - Encounter for general adult medical examination without abnormal findings Medications: New pantoprazole 20 mg PO DAILY 30 days 30 tabs 3RF Changed From omega-3 acid ethyl esters 1 cap PO BID 30 days 60 caps 2RF To omega-3 acid ethyl esters 2 caps PO BID 30 days 120 caps 2RF Coding Level of Care Code Est Pt Prev Care 18-39y(97269) Diagnoses Physical exam Z00.00 Additional Codes ALEXX-7 Assessment Billing - ALEXX-7 Assessment Tool: ALEXX-7 Assessment 51353 ([id number])
[2023-01-19 11:06] VITALS: BP 106/80; PULSE 90; O2SAT 95; BMI 49.6
== END 2023-01-19 11:49 | disposition home or self-care (01) ==
PROVIDERS: Visit Provider Nurse Practitioner Family
DX: Z00.00 Encounter for general adult medical examination without abnormal findings (principal)
CPT/HCPCS: 99395

== ENCOUNTER → 2023-02-20 10:33 | Outpatient (BNVA) | payer OTHER, SELFPAY | PROVIDERS: PCP Nurse Practitioner Family; Visit Provider Nurse Practitioner Family | DX: G47.30 Sleep apnea, unspecified (principal); R40.0 Somnolence; E66.01 Morbid (severe) obesity due to excess calories; Z68.43 Body mass index [BMI] 50.0-59.9, adult | CPT/HCPCS: 99202 ==

== ENCOUNTER 2023-02-20 10:34 | Outpatient (AMB) | payer OTHER, SELFPAY ==
[2023-02-20 10:36] VITALS: BP 136/74; PULSE 77; O2SAT 93; BMI 50.5
--- NOTE | 2023-02-20 10:36 | A.OFFVIS_ITS ---
Intake Vital Signs 02/20/23 10:36 Height 5 ft 8 in Weight 332 lb 2 oz BMI 50.5 BP 136/74 Blood Pressure Location Lt brachial Position Sitting Pulse 77 Pulse Source Pulse Oximeter Pulse Oximetry (%) 93 Oxygen Delivery Method Room Air Intake Visit Reasons: I-FISH PEDDLER: Sleep Apnea Confirmed Intake Note: Pt presents to the office today for a new patient visit for sleep apnea. Allergies Sulfa (Sulfonamide Antibiotics) Allergy (Unknown, Verified 02/20/23 10:38) hives sulfamethoxazole [From BACTRIM] Allergy (Unknown, Verified 02/20/23 10:38) HIVES trimethoprim [From BACTRIM] Allergy (Unknown, Verified 02/20/23 10:38) HIVES SEASONAL ALLERGIES Allergy (Unknown, Uncoded 02/20/23 10:38) UNKNOWN HPI HPI Comments History of Present Illness Details 27 y/o male patient presents for new in- person visit for sleep consultation. Pt reports snoring, and difficulty breathing while he sleeps. He needs to raise his head up while he sleep to breath. He wakes up gasping with palpitation. Sleep questionnaire: Have you ever been diagnosed with a sleep disorder? No. Have you ever had a sleep study in the past? No. Have you ever been treated for a sleep disorder? No. Do you take medications for a sleep disorder? Melatonin 10 mg. Do you snore? Yes. Do you wake up gasping at night? Yes, Do you have episodes of apneas? Yes. If yes, are they witnessed? Yes. Do you have episodes of nocturnal chest pain or dyspnea? Yes. Do you have difficulty initiating sleep? Yes with smoking marijuana. Do you have difficulty maintaining sleep? Yes. Do you wake up tired? Yes. Do you have headaches upon awakening? No. Do you wake up with dry mouth or throat? Yes. Do you have GERD? Yes. Do you have nocturia? Yes, 4-5 times. Do you have nocturnal leg cramps? Yes when he stretch. Do you have symptoms of restless legs? No. Do you act out your dreams? No. Sleep hygiene questionnaire: What is your usual sleep routine? Usual bedtime is at 2-3 am; Usual wake up time is at 12-1 pm . Do you take naps? Yes, sometimes. Is your sleep environment cool, dark, and quiet? Yes. Do you exercise? No. Do you take caffeine or other stimulants? Yes, coffee and soda. Do you use electronics in bed? Yes. What is your work schedule? 5 pm to 12 am. Hypersomnolence questionnaire: Do you have daytime tiredness or fatigue? Yes. Do you easily fall asleep when inactive? No. Have you ever had episodes of sudden weakness? No. Have you ever had episodes of sudden weakness associated with strong emotions? No. PFSH Medical History Asthma Schizoaffective disorder Family History Father No problems noted. Mother No problems noted. Sister No problems noted. Maternal Uncle Substance use disorder Family/Other Substance use disorder Social History (Updated 02/20/23 @ 10:40 by Rocío Adkins MA) Household Members: Family Housing: House Do you presently have visiting nurse or other home services: No Alcohol intake: current Alcohol intake frequency: holidays/special occasions only Patient Tobacco Use Status: Never used Tobacco Tobacco use type: Cigarette Cigarettes Per Day: 15 e-Cigarette/Vaping Use: Never Used Second Hand Smoke Exposure: No Substance Use Type: Marijuana service: No Sexual orientation: Straight/Heterosexual Cognitive needs: No Hearing needs: No Vision needs: No Review of Systems Const All systems reviewed & are unremarkable except as noted in HPI and below ENT Reports Normal hearing present Neuro Reports Normal hearing present Physical Exam Vital Signs: Last Vital Signs Pulse 77 02/20/23 10:36 BP 136/74 02/20/23 10:36 Pulse Ox 93 02/20/23 10:36 Oxygen Delivery Method Room Air 02/20/23 10:36 BMI result Body Mass Index 50.5 Const General: cooperative and tired appearing Nutritional Appearance: obese Orientation/consciousness: patient oriented x3 Neck Neck: Yes full ROM and Yes supple Resp Effort & Inspection: normal respiratory effort and able to speak in complete sentences Neuro General: patient oriented x3, gait normal and moves all extremities Cranial nerves: Yes Bilaterally intact EOM present, Yes Normal facial strength present, Yes Midline tongue present, Yes Symmetric palate elevation present, Yes Normal hearing present and Yes Ability to bilaterally elevate shoulders present Cognition (Neuro): normal cognition Gait exam (Neuro): Normal gait present Motor exam (neuro): 5/5 motor strength present throughout, Pronator motor function not present and no tremor noted Psych Appearance: grossly normal Mental Status: mental status grossly normal Speech and movement: Normal speech and movement present Affect: normal affect Attitude: cooperative Assessment & Plan Assessment & Plan (1) Daytime sleepiness: Code(s): R40.0 - Somnolence (2) Obesity, morbid, BMI 50 or higher: Code(s): E66.01 - Morbid (severe) obesity due to excess calories (3) Sleep apnea: Code(s): G47.30 - Sleep apnea, unspecified Plan Pt is advised to undergo in lab sleep study to assess for sleep apnea. Will f/u with pt after study to discuss results and appropriate treatment options. Wt reduction advised. Sleep hygiene education provided, limit caffeine intake in the evening. Pt to call with any worsening concerns or questions. Orders: Orders RT PSG in-lab sleep study Today E66.01 - Morbid (severe) obesity due to excess calories, G47.30 - Sleep apnea, unspecified, R40.0 - Somnolence Coding Level of Care Code New Pt Level 3 (15067) Diagnoses Daytime sleepiness R40.0 Obesity, morbid, BMI 50 or higher E66.01 Sleep apnea G47.30
== END 2023-02-20 11:03 | disposition home or self-care (01) ==
PROVIDERS: PCP Nurse Practitioner Family; Visit Provider Nurse Practitioner Family
DX: R40.0 Somnolence (principal); E66.01 Morbid (severe) obesity due to excess calories; G47.30 Sleep apnea, unspecified
CPT/HCPCS: 99203

== ENCOUNTER → 2023-03-30 20:30 | Outpatient (REF) | payer OTHER, SELFPAY | LOC: HO.SL 20:30 | PROVIDERS: PCP Nurse Practitioner Family; Visit Provider Nurse Practitioner Family | DX: G47.33 Obstructive sleep apnea (adult) (pediatric) (principal); G47.30 Sleep apnea, unspecified; R40.0 Somnolence; E66.01 Morbid (severe) obesity due to excess calories | CPT/HCPCS: 95810 ==

== ENCOUNTER → 2023-03-30 22:54 | Outpatient (BNV) | payer OTHER, SELFPAY | PROVIDERS: PCP Nurse Practitioner Family; Visit Provider Psychiatry & Neurology Neurology | DX: G47.33 Obstructive sleep apnea (adult) (pediatric) (principal) | CPT/HCPCS: 95810 ==

== ENCOUNTER 2023-07-21 10:13 | Outpatient (AMB) | payer OTHER, SELFPAY ==
--- NOTE | 2023-07-21 10:14 | MHC.PC.OV ---
Vital Signs 07/21/23 10:16 Height 5 ft 8 in Weight 347 lb BMI 52.8 BP 108/64 Blood Pressure Location Rt brachial Position Sitting Pulse 101 H Pulse Source Pulse Oximeter Pulse Oximetry (%) 95 Oxygen Delivery Method Room Air Intake Visit Reasons: 6 month follow up Intake Note: Patient here to discuss a bad cough that has been present for 1 week and has tried several OTC meds with no help Allergies Sulfa (Sulfonamide Antibiotics) Allergy (Unknown, Verified 07/21/23 10:18) hives sulfamethoxazole [From BACTRIM] Allergy (Unknown, Verified 07/21/23 10:18) HIVES trimethoprim [From BACTRIM] Allergy (Unknown, Verified 07/21/23 10:18) HIVES SEASONAL ALLERGIES Allergy (Unknown, Uncoded 07/21/23 10:18) UNKNOWN Medication List - Last Reconciled 07/21/23 by ESTELA Bland albuterol sulfate 90 mcg/actuation 1 inh inhalation QID PRN 30 days azithromycin For 250 mg dose pack: take 500 mg today (day 1), then 250 mg for 4 days (days 2-5) PO cetirizine 10 mg PO DAILY melatonin 9 mg (3 x 3 mg) PO BEDTIME multivitamin 1 tab PO DAILY nicotine (Nicotrol) 1 inh inhalation Q2-4H PRN olanzapine 2.5 mg PO DAILY olanzapine 20 mg PO BEDTIME omega-3 acid ethyl esters 2 caps PO BID 30 days pantoprazole 20 mg PO DAILY 30 days prednisone 50 mg PO DAILY 6 days Tobacco use date assessed: 07/21/23 Dental Screening Dental Screen Date: 07/21/23 Did you have a dental visit in the last 12 months?: No Did you have a dental problem in the last 6 months where you did not have access to dental care?: No Was dental information given to patient?: No HPI 6 month follow up HPI Details Pt c/o cough. He reports that this has been present for one week. Pt reports that the cough can be wet or dry. ? bronchitis. Will send zpak and prednisone. Pt has no other symptoms. Denies fever, chills, chest pain, and shortness of breath. [facility] Medical History (Updated 07/21/23 @ 10:29 by ESTELA Bland) Fatty liver Asthma Schizoaffective disorder Family History Father No problems noted. Mother No problems noted. Sister No problems noted. Maternal Uncle Substance use disorder Family/Other Substance use disorder Social History (Updated 02/20/23 @ 10:40 by Rocío Adkins CMA) Household Members: Family Housing: House Do you presently have visiting nurse or other home services: No Alcohol intake: current Alcohol intake frequency: holidays/special occasions only Patient Tobacco Use Status: Never used Tobacco Tobacco use type: Cigarette Cigarettes Per Day: 15 e-Cigarette/Vaping Use: Never Used Second Hand Smoke Exposure: No Substance Use Type: Marijuana service: No Sexual orientation: Straight/Heterosexual Cognitive needs: No Hearing needs: No Vision needs: No Questionnaire PHQ-9 Over the last 2 weeks, how often have you been bothered by any of the following problems? 1. Little interest or pleasure in doing things: not at all 2. Feeling down, depressed, or hopeless: not at all 3. Trouble falling or staying asleep, or sleeping too much: more than half the days 4. Feeling tired or having little energy: more than half the days 5. Poor appetite or overeating: more than half the days 6. Feeling bad about yourself - or that you are a failure or have let yourself or your family down: not at all 7. Trouble concentrating on things, such as reading the newspaper or watching television: not at all 8. Moving or speaking so slowly that other people could have noticed. Or the opposite - being so fidgety or restless that you have been moving around a lot more than usual: not at all 9. Thoughts that you would be better off or of hurting yourself in some way: not at all Total score: 6 Depression Screening Interpretation: Negative Depression Screening Done: Yes 96630 - PHQ-9 Billing: Yes Source: Developed by Drs. Omar Lucero, Rubina Melara, Nicola Suh and colleagues, with an educational conrad from [employer]. Thrive Questionnaire Date Thrive assessed: 07/21/23 I am a: Patient What is your living situation today?: I have a steady place to live Within the past 12 months, did the food you bought not last and you didn't have the money to get more?: Often true Within the past 12 months, did you worry whether your food would run out before you got money to buy more?: Sometimes True Do you have trouble paying for medicines?: No Do you have trouble getting transportation to medical appointments?: No Do you have trouble paying your heating and electricity bill?: No Do you have trouble taking care of your child, family member or friend?: No Do you have trouble with day-to-day activities such as bathing, preparing meals, shopping, managing finances, etc.?: No Are you currently unemployed and looking for a job?: Yes Are you interested in more education?: Yes Currently or been in a relationship where the following occur: I choose not to answer this question THRIVE Score: 2 AUDIT C Alcohol Use Questionnaire (AUDIT-C) 1. How often do you have a drink containing alcohol?: Never 3. How often do you have six or more drinks on one occasion?: Never Total Score: 0 Score Reviewed/Action Taken: No ALEXX-7 AMB Questionnaire ALEXX-7 Date ALEXX - 7 assessed: 07/21/23 Feeling nervous, anxious, or on edge: 1 = Several days Not being able to stop or control worryin = Not at all Worrying too much about different things: 0 = Not at all Trouble relaxin = Not at all Being so restless that it is hard to sit still: 0 = Not at all Becoming easily annoyed or irritable: 2 = More than half the days Feeling afraid as if something awful might happen: 0 = Not at all Total ALEXX-7 score (0-4 normal; 5-9 mild; 10-14 moderate; 15-21 severe): 3 Source: Developed by Drs. Omar Lucero, Rubina Melara, Nicola Suh and colleagues, with an educational conrad from [employer]. ALEXX-7 Assessment Billing ALEXX-7 Assessment Tool: ALEXX-7 Assessment 55303 Review of Systems Const Reports as per HPI Physical exam (Primary Care) Vital Signs: Last Vital Signs Pulse 101 H 07/21/23 10:16 BP 108/64 07/21/23 10:16 Pulse Ox 95 07/21/23 10:16 Oxygen Delivery Method Room Air 07/21/23 10:16 BMI result Body Mass Index 52.8 Tobacco/Smoking Status: Tobacco use Status Tobacco use date assessed 07/21/23 07/21/23 10:21 Patient Tobacco Use Status Never used Tobacco 07/21/23 10:16 Tobacco use type Cigarette 07/21/23 10:16 e-Cigarette/Vaping Use Never Used 07/21/23 10:16 Depression Screening Interpretation: Negative Thrive Assessment: Date of Thrive Assessment Date Thrive assessed 01/19/23 07/21/23 10:16 Currently or been in a relationship where the following occur: I choose not to answer this question Const General: cooperative Nutritional Appearance: obese morbidly obese Orientation/consciousness: patient oriented x3 HENMT Ears: TM's normal bilaterally Neck Neck: Yes no lymphadenopathy Resp Effort & Inspection: normal respiratory effort Auscultation: wheezes throughout Cardio Rate: regular rate Rhythm: regular rhythm Heart sounds: S1 normal heart sound present, S2 normal heart sound present and no murmurs Neuro General: patient oriented x3 Psych Appearance: grossly normal Mental Status: mental status grossly normal Speech and movement: Normal speech and movement present Affect: normal affect Attitude: cooperative Thought process: Normal thought process present Thought content: Normal thought content present Insight: Good insight present (Psych) Judgement: Good judgement present (Psych) Assessment and Plan Assessment & Plan (1) Bronchitis: Code(s): J40 - Bronchitis, not specified as acute or chronic Plan: prednisone and zpack sent Plan The patient agreed to the use of a outside medical sales representative for this encounter. Scribed for ESTELA Norton by Liseth Han outside medical sales representative, on 07/21/2023 at 10:25 EST. Medications: New nicotine 4 mg inhalation .q12hrs 30 days 168 ea 0RF prednisone 50 mg PO DAILY 6 days 6 tabs 0RF azithromycin For 250 mg dose pack: take 500 mg today (day 1), then 250 mg for 4 days (days 2-5) PO 6 tabs 0RF Refilled albuterol sulfate 90 mcg/actuation 1 inh inhalation QID 30 days PRN 8.5 grams 2RF shortness of breath or wheezing Coding Level of Care Code Est Pt Level 3 (33318) Diagnoses Bronchitis J40 Additional Codes ALEXX-7 Assessment Billing - ALEXX-7 Assessment Tool: ALEXX-7 Assessment [id number] ([id number])
[2023-07-21 10:16] VITALS: BP 108/64; PULSE 101; O2SAT 95; BMI 52.8
== END 2023-07-21 11:04 | disposition home or self-care (01) ==
PROVIDERS: PCP Nurse Practitioner Family; Visit Provider Nurse Practitioner Family
DX: J40 Bronchitis, not specified as acute or chronic (principal)
CPT/HCPCS: 99213

== ENCOUNTER 2023-09-15 15:15 | Outpatient (AMB) | payer OTHER, SELFPAY ==
--- NOTE | 2023-09-15 15:21 | AM.OFFWIN_ITS ---
Intake Vital Signs 09/15/23 15:22 Height 5 ft 8 in Weight 355 lb BMI 54.0 BP 118/80 Blood Pressure Location Lt brachial Position Sitting Pulse 105 H Temp 98.6 F Temp Source Oral Pulse Oximetry (%) 98 Oxygen Delivery Method Room Air Intake Visit Reasons: EP bump lft inner thigh Intake Note: pt is here for bump on LT inner thigh. Patient Tobacco Use Status: Former Tobacco user Allergies Sulfa (Sulfonamide Antibiotics) Allergy (Unknown, Verified 09/15/23 15:27) hives sulfamethoxazole [From BACTRIM] Allergy (Unknown, Verified 09/15/23 15:27) HIVES trimethoprim [From BACTRIM] Allergy (Unknown, Verified 09/15/23 15:27) HIVES SEASONAL ALLERGIES Allergy (Unknown, Uncoded 09/15/23 15:27) UNKNOWN Do you need a note to return to daycare/school/sports/work: No HPI HPI Comments History of Present Illness Details 28-year-old male presents today complain ing of a raised erythematous painful lesion on the anterior of his left eye. He thinks it has an ingrown hair. [facility] Medical History (Updated 09/15/23 @ 15:43 by IMAN Fernandez) Fatty liver Asthma Schizoaffective disorder Family History Father No problems noted. Mother No problems noted. Sister No problems noted. Maternal Uncle Substance use disorder Family/Other Substance use disorder Social History (Updated 02/20/23 @ 10:40 by Rocío Adkins CMA) Household Members: Family Housing: House Do you presently have visiting nurse or other home services: No Alcohol intake: current Alcohol intake frequency: holidays/special occasions only Patient Tobacco Use Status: Former Tobacco user Tobacco use type: Cigarette Cigarettes Per Day: 15 e-Cigarette/Vaping Use: Never Used Second Hand Smoke Exposure: No Substance Use Type: Marijuana service: No Sexual orientation: Straight/Heterosexual Cognitive needs: No Hearing needs: No Vision needs: No Review of Systems Const All systems reviewed & are unremarkable except as noted in HPI and below Eyes Reports no additional complaints ENT Reports no additional complaints Card Reports no additional complaints Resp Reports no additional complaints GI Reports no additional complaints Skin/Breast Reports furuncle and Reports erythema Physical Exam Vital Signs: Last Vital Signs Temp 98.6 F 09/15/23 15:22 Pulse 105 H 09/15/23 15:22 BP 118/80 09/15/23 15:22 Pulse Ox 98 09/15/23 15:22 Oxygen Delivery Method Room Air 09/15/23 15:22 BMI result Body Mass Index 54.0 HEENT Head: Yes normal to inspection and Yes normocephalic Ears: hearing grossly normal bilaterally General nose exam: Normal external nose present Face and sinus: Yes normal facial exam Throat: Yes posterior oropharynx normal Skin Lesions: lesion noted (Erythematous lesion with central induration left thigh) Assessment & Plan Assessment & Plan (1) Cellulitis and abscess of left leg: Code(s): L03.116 - Cellulitis of left lower limb; L02.416 - Cutaneous abscess of left lower limb Plan: The patient was put on antibiotic and we will continue warm compresses. Plan See plan Medications: New cephalexin 500 mg PO BID 7 days 14 caps 0RF Coding Level of Care Code Est Pt Level 3 (63818) Diagnoses Cellulitis and abscess of left leg L03.116; L02.416
[2023-09-15 15:22] VITALS: BP 118/80; PULSE 105; TEMP 37; O2SAT 98; BMI 54.0
== END 2023-09-15 15:58 | disposition home or self-care (01) ==
PROVIDERS: PCP Nurse Practitioner Family; Visit Provider Physician Assistant Medical
DX: L03.116 Cellulitis of left lower limb (principal); L02.416 Cutaneous abscess of left lower limb
CPT/HCPCS: 99213

== ENCOUNTER 2023-09-30 09:19 | Outpatient (AMB) | payer OTHER, SELFPAY ==
[2023-09-30 09:21] VITALS: BP 110/70; PULSE 86; TEMP 37; O2SAT 95; BMI 54.0
--- NOTE | 2023-09-30 09:21 | AM.OFFWIN_ITS ---
Intake Vital Signs 09/30/23 09:21 Height 5 ft 8 in Weight 355 lb 2 oz BMI 54.0 BP 110/70 Blood Pressure Location Lt brachial Position Sitting Pulse 86 Pulse Source Pulse Oximeter Temp 98.6 F Temp Source Temporal Artery Scan Pulse Oximetry (%) 95 Intake Visit Reasons: EP body pain sore throat cough/chest pain Intake Note: pt is here for body dubose, sore throat and chest pain due to coughing hard last night Patient Tobacco Use Status: Former Tobacco user Allergies Sulfa (Sulfonamide Antibiotics) Allergy (Unknown, Verified 09/30/23 09:22) hives sulfamethoxazole [From BACTRIM] Allergy (Unknown, Verified 09/30/23 09:22) HIVES trimethoprim [From BACTRIM] Allergy (Unknown, Verified 09/30/23 09:22) HIVES SEASONAL ALLERGIES Allergy (Unknown, Uncoded 09/15/23 15:27) UNKNOWN Do you need a note to return to daycare/school/sports/work: Yes HPI HPI Comments History of Present Illness Details Patient is a 28-year-old male complaining of 1 day of sore throat, he states his cough was productive yesterday with the overnight and became very dry and he was coughing a lot which was causing him chest pain in his left upper chest. He also states he thinks he has been wheezing, had some nausea this morning but did not throw up. He denies any head congestion, chest congestion, sinus pain, ear pain, shortness of breath, fevers or diarrhea. He states he does have a history of asthma and has an albuterol inhaler at home which she has not had to use. He states his cousin and grandmother were whom he lives with were both recently sick but they felt better just using [id number] medications and did not seek medical attention. 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 [facility] Medical History (Updated 09/30/23 @ 10:06 by Tati Esparza PA-C) Fatty liver Asthma Schizoaffective disorder Family History Father No problems noted. Mother No problems noted. Sister No problems noted. Maternal Uncle Substance use disorder Family/Other Substance use disorder Social History (Updated 02/20/23 @ 10:40 by Rocío Adkins CMA) Household Members: Family Housing: House Do you presently have visiting nurse or other home services: No Alcohol intake: current Alcohol intake frequency: holidays/special occasions only Patient Tobacco Use Status: Former Tobacco user Tobacco use type: Cigarette Cigarettes Per Day: 15 e-Cigarette/Vaping Use: Never Used Second Hand Smoke Exposure: No Substance Use Type: Marijuana service: No Sexual orientation: Straight/Heterosexual Cognitive needs: No Hearing needs: No Vision needs: No Review of Systems Const All systems reviewed & are unremarkable except as noted in HPI and below Physical Exam Vital Signs: Last Vital Signs Temp 98.6 F 09/30/23 09:21 Pulse 86 09/30/23 09:21 BP 110/70 09/30/23 09:21 Pulse Ox 95 09/30/23 09:21 BMI result Body Mass Index 54.0 Const General: cooperative, healthy appearing, comfortable and no acute distress Orientation/consciousness: patient oriented x3 Limitations: no limitations HEENT Head: Yes normal to inspection Ears: hearing grossly normal bilaterally, external ears normal, TM abnormal (right side (after cerumen cleared)) wth effusion, erythematous and with loss of landmarks and unable to visualize TM (cerumen impaction) bilaterally General nose exam: Normal external nose present, Normal nares present and No nasal discharge present Face and sinus: Yes normal facial exam and Yes sinuses nontender Mouth: Normal oral and palatal mucosa present and moist mucous membranes Throat: Yes tonsils normal, Yes uvula midline and Yes posterior oropharynx abnor mal (Erythema) Eyes General: appearance normal, both eyes and all related structures Neck Neck: Yes normal visual inspection Resp Effort & Inspection: normal respiratory effort, able to speak in complete sentences, no respiratory distress, not tachypneic, no tripod positioning and no use of accessory muscles Auscultation: wheezes expiratory wheezes, inspiratory wheezes and scattered wheezes Cardio Rate: regular rate Rhythm: regular rhythm Heart sounds: normal S1 and S2 Skin General skin exam: no rashes or lesions noted Neuro General: patient oriented x3 Extrem General: Yes normal to inspection and Yes no clubbing, cyanosis or edema Office Procedures Cerumen Removal From which ear canal was the cerumen removed: bilateral Removal: irrigation (right side) and cerumen loop/spoon (left side) Notes: patient tolerated procedure well, no complications and ear canal clear [id number] Wax Removal by Spoon/Curette Results AMB Rapid Strep AMB Rapid Strep Negative Last Edit by Freedom Dozier CMA on 09/30/23 09 :46 Results Reviewed Results Reviewed: Rapid strep negative Assessment & Plan Assessment & Plan (1) Bilateral impacted cerumen: Code(s): H61.23 - Impacted cerumen, bilateral Plan: Flushed right ear with success, noticeable infection, sent antibiotic. Unable to flush the left side but I was able to remove it with the curette. Recommended following up with PCP if hearing does not improve after treatment for otitis media. (2) URI (upper respiratory infection): Code(s): J06.9 - Acute upper respiratory infection, unspecified Qualifiers: URI type: unspecified viral URI Qualified Code(s): J06.9 - Acute upper respiratory infection, unspecified Plan: Rapid strep negative. Did flu COVID and RSV testing, sent prescription for prednisone and will get chest x-ray to rule out pneumonia (3) Otitis media: Code(s): H66.90 - Otitis media, unspecified, unspecified ear Qualifiers: Otitis media type: suppurative Chronicity: acute Laterality: right Recurrence: non-recurrent Spontaneous tympanic membrane rupture: without spontaneous rupture Qualified Code(s): H66.001 - Acute suppurative otitis media without spontaneous rupture of ear drum, right ear Plan: See above Plan See above Orders: Orders AMB Rapid Strep Screen Today Z13.9 - Encounter for screening, unspecified SARS-CoV2/FLU/RSV Today J06.9 - Acute upper respiratory infection, unspecified XR chest 2V Today R05.9 - Cough, unspecified Medications: New prednisone 40 mg (2 x 20 mg) PO DAILY 10 tabs 0RF amoxicillin 875 mg PO Q12H 10 tabs 0RF Coding Level of Care Code Est Pt Level 4 (68432) Diagnoses Bilateral impacted cerumen H61.23 Viral upper respiratory tract infection J06.9 URI type: unspecified viral URI Non-recurrent acute suppurative otitis media of right ear without spontaneous rupture of tympanic membrane H66.001 Otitis media type: suppurative Chronicity: acute Laterality: right Recurrence: non-recurrent Spontaneous tympanic membrane rupture: without spontaneous rupture CPT Codes Office Procedure - CPT: 11117-Cih Wax Removal by Spoon/Curette ([id number])
== END 2023-09-30 10:30 | disposition home or self-care (01) ==
PROVIDERS: PCP Nurse Practitioner Family; Visit Provider Physician Assistant
DX: H61.21 Impacted cerumen, right ear (principal); J06.9 Acute upper respiratory infection, unspecified; H66.001 Acute suppurative otitis media without spontaneous rupture of ear drum, right ear; H61.22 Impacted cerumen, left ear
CPT/HCPCS: 69209; 69210; 99214

== ENCOUNTER 2023-09-30 09:53 | Outpatient (REF) | payer OTHER, SELFPAY ==
[2023-09-30 14:21] LABS: Influenza A PCR NEGATIVE (Negative); Influenza B PCR NEGATIVE (Negative); Resp Syncy Virus RNA Qual PCR NEGATIVE (Negative); SARS COV2 PCR INHOUSE NEGATIVE (Negative)
== END 2023-09-30 09:54 | disposition home or self-care (01) ==
LOC: HO.LAB 09:53
PROVIDERS: Visit Provider Physician Assistant
DX: J06.9 Acute upper respiratory infection, unspecified (principal)
CPT/HCPCS: 0241U

== ENCOUNTER 2023-09-30 10:08 | Outpatient (REF) | payer OTHER, SELFPAY ==
--- NOTE | ~2023-09-30 | XR_ITS ---
EXAMINATION: XR CHEST CLINICAL INFORMATION: Cough COMPARISON: 07/21/2021 TECHNIQUE: 2 views of the chest were obtained. FINDINGS: Lungs are well-inflated and clear. Trachea is midline in position. No interstitial disease, consolidation or mass. No pleural effusion or pneumothorax. Cardiac silhouette and pulmonary vessels are normal in size. The mediastinum and nish have normal contour. The visualized bones and upper abdomen are unremarkable. XR/XR chest 2V IMPRESSION: Lungs have a normal appearance. No acute cardiopulmonary abnormality.
== END 2023-09-30 10:09 | disposition home or self-care (01) ==
LOC: HO.HMGCX 10:08
PROVIDERS: PCP Nurse Practitioner Family; Visit Provider Physician Assistant
DX: R05.9 Cough, unspecified (principal)
CPT/HCPCS: 71046

== ENCOUNTER 2023-10-22 11:16 | Outpatient (AMB) | payer OTHER, SELFPAY ==
--- NOTE | 2023-10-22 11:23 | MHC.PC.OV ---
Vital Signs 10/22/23 11:26 Height 5 ft 8 in Weight 349 lb BMI 53.1 BP 120/80 Blood Pressure Location Rt brachial Position Sitting Pulse 97 Pulse Source Pulse Oximeter Pulse Oximetry (%) 95 Oxygen Delivery Method Room Air Intake Visit Reasons: Ear Pain Intake Note: Patient here to have ears checked as he has had some changes in hearing, when he swallows the ears make a pop sound which has been going on for about 1 week. Allergies Sulfa (Sulfonamide Antibiotics) Allergy (Unknown, Verified 10/22/23 11:27) hives sulfamethoxazole [From BACTRIM] Allergy (Unknown, Verified 10/22/23 11:27) HIVES trimethoprim [From BACTRIM] Allergy (Unknown, Verified 10/22/23 11:27) HIVES SEASONAL ALLERGIES Allergy (Unknown, Uncoded 10/22/23 11:27) UNKNOWN Tobacco use date assessed: 07/21/23 Dental Screening Dental Screen Date: 07/21/23 HPI Ear Pain HPI Details Pt was seen in the walk-in on 09/29 with sore throat, cough, and decreased hearing. Strep and COVID/flu/RSV were negative. Chest XR was negative. He had bilat cerumen removal. Pt was treated for otitis media with prednisone and amoxicillin. Pt reports ongoing ear discomfort ( i hear crackling, and it's muffled ). Will send fluticasone, will have pt take this regularly for 2 weeks. Denies fever, chills, and dizziness. [facility] Medical History (Updated 10/22/23 @ 11:54 by ANNALISA Bland-) Fatty liver Asthma Schizoaffective disorder Family History Father No problems noted. Mother No problems noted. Sister No problems noted. Maternal Uncle Substance use disorder Family/Other Substance use disorder Social History (Updated 02/20/23 @ 10:40 by Rocío Adkins CMA) Household Members: Family Housing: House Do you presently have visiting nurse or other home services: No Alcohol intake: current Alcohol intake frequency: holidays/special occasions only Patient Tobacco Use Status: Former Tobacco user Tobacco use type: Cigarette Cigarettes Per Day: 15 e-Cigarette/Vaping Use: Never Used Second Hand Smoke Exposure: No Substance Use Type: Marijuana service: No Sexual orientation: Straight/Heterosexual Cognitive needs: No Hearing needs: No Vision needs: No Questionnaire PHQ-9 Over the last 2 weeks, how often have you been bothered by any of the following problems? 1. Little interest or pleasure in doing things: several days 2. Feeling down, depressed, or hopeless: not at all 3. Trouble falling or staying asleep, or sleeping too much: several days 4. Feeling tired or having little energy: several days 5. Poor appetite or overeating: several days 6. Feeling bad about yourself - or that you are a failure or have let yourself or your family down: not at all 7. Trouble concentrating on things, such as reading the newspaper or watching television: not at all 8. Moving or speaking so slowly that other people could have noticed. Or the opposite - being so fidgety or restless that you have been moving around a lot more than usual: not at all 9. Thoughts that you would be better off or of hurting yourself in some way: not at all Total score: 4 Depression Screening Interpretation: Negative Depression Screening Done: Yes 12912 - PHQ-9 Billing: Yes Source: Developed by Drs. Omar Lucero, Rubina Melara, Nicola Suh and colleagues, with an educational conrad from [employer]. Thrive Questionnaire Date Thrive assessed: 10/22/23 I am a: Patient What is your living situation today?: I have a place to live, but I am worried about losing it in the future Within the past 12 months, did the food you bought not last and you didn't have the money to get more?: I choose not to answer this question Within the past 12 months, did you worry whether your food would run out before you got money to buy more?: Sometimes True Do you have trouble paying for medicines?: No Do you have trouble getting transportation to medical appointments?: No Do you have trouble paying your heating and electricity bill?: No Do you have trouble taking care of your child, family member or friend?: No Do you have trouble with day-to-day activities such as bathing, preparing meals, shopping, managing finances, etc.?: No Are you currently unemployed and looking for a job?: No Are you interested in more education?: I choose not to answer this question Please select the resources that you would like help with: Housing/Fci Currently or been in a relationship where the following occur: No concerns reported THRIVE Score: 2 AUDIT C Alcohol Use Questionnaire (AUDIT-C) 1. How often do you have a drink containing alcohol?: Never Total Score: 0 ALEXX-7 AMB Questionnaire ALEXX-7 Date ALEXX - 7 assessed: 10/22/23 Feeling nervous, anxious, or on edge: 1 = Several days Not being able to stop or control worryin = Not at all Worrying too much about different things: 1 = Several days Trouble relaxin = Not at all Being so restless that it is hard to sit still: 0 = Not at all Becoming easily annoyed or irritable: 0 = Not at all Feeling afraid as if something awful might happen: 0 = Not at all Total ALEXX-7 score (0-4 normal; 5-9 mild; 10-14 moderate; 15-21 severe): 2 Source: Developed by Drs. Omar Lucero, Rubina Melara, Nicola Suh and colleagues, with an educational conrad from [employer]. ALEXX-7 Assessment Billing ALEXX-7 Assessment Tool: ALEXX-7 Assessment 72222 Review of Systems Const Reports as per HPI Physical exam (Primary Care) Vital Signs: Last Vital Signs Pulse 97 10/22/23 11:26 BP 120/80 10/22/23 11:26 Pulse Ox 95 10/22/23 11:26 Oxygen Delivery Method Room Air 10/22/23 11:26 BMI result Body Mass Index 53.1 Tobacco/Smoking Status: Tobacco use Status Tobacco use date assessed 07/21/23 10/22/23 11:25 Patient Tobacco Use Status Former Tobacco user 10/22/23 11:25 Tobacco use type Cigarette 10/22/23 11:25 e-Cigarette/Vaping Use Never Used 10/22/23 11:25 PHQ-9: PHQ-9 Score PHQ-9: Total score 4 10/22/23 11:30 Depression Screening Interpretation: Negative Thrive Assessment: Date of Thrive Assessment Date Thrive assessed 10/22/23 10/22/23 11:30 Currently or been in a relationship where the following occur: No concerns reported Const General: cooperative Nutritional Appearance: obese morbidly obese Orientation/consciousness: patient oriented x3 HENMT Other: slight left ear effusion Throat: Yes tonsils normal Neck Neck: Yes no lymphadenopathy Resp Effort & Inspection: normal respiratory effort Auscultation: clear to auscultation bilaterally Cardio Rate: regular rate Rhythm: regular rhythm Heart sounds: S1 normal heart sound present and S2 normal heart sound present Neuro General: patient oriented x3 Psych Appearance: grossly normal Mental Status: mental status grossly normal Speech and movement: Normal speech and movement present Affect: normal affect Attitude: cooperative Thought process: Normal thought process present Thought content: Normal thought content present Insight: Good insight present (Psych) Judgement: Good judgement present (Psych) Assessment and Plan Assessment & Plan (1) Middle ear effusion: Code(s): H65.90 - Unspecified nonsuppurative otitis media, unspecified ear Plan: use fluticasone x 2 weeks. Plan The patient agreed to the use of a medical affairs specialist for this encounter. Scribed for ESTELA Norton by Liseth Han medical affairs specialist, on 10/22/2023 at 11:40 EST. Medications: New fluticasone propionate 50 mcg/actuation (Allergy Relief (fluticasone)) administer into each nostril 1 spray intranasal Q12H 16 grams 0RF Coding Level of Care Code Est Pt Level 3 (65816) Diagnoses Middle ear effusion H65.90 Additional Codes ALEXX-7 Assessment Billing - ALEXX-7 Assessment Tool: ALEXX-7 Assessment 37415 ([id number])
[2023-10-22 11:26] VITALS: BP 120/80; PULSE 97; O2SAT 95; BMI 53.1
== END 2023-10-22 11:50 | disposition home or self-care (01) ==
PROVIDERS: PCP Nurse Practitioner Family; Visit Provider Nurse Practitioner Family
DX: H65.93 Unspecified nonsuppurative otitis media, bilateral (principal)
CPT/HCPCS: 99213

== ENCOUNTER 2024-02-01 11:17 | Outpatient (AMB) | payer OTHER, SELFPAY ==
[2024-02-01 11:22] VITALS: BP 112/76; PULSE 70; O2SAT 96; BMI 53.1
--- NOTE | 2024-02-01 11:22 | MHC.PC.OV ---
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 Accompanied by: Self / Same As Patient Allergies Sulfa (Sulfonamide Antibiotics) Allergy (Unknown, Verified 02/01/24 11:35) hives sulfamethoxazole [From BACTRIM] Allergy (Unknown, Verified 02/01/24 11:35) HIVES trimethoprim [From BACTRIM] Allergy (Unknown, Verified 02/01/24 11:35) HIVES SEASONAL ALLERGIES Allergy (Unknown, Uncoded 02/01/24 11:35) UNKNOWN Medication List - Last Reconciled 02/01/24 by ESTELA Bland albuterol sulfate 90 mcg/actuation 1 inh inhalation QID PRN 30 days cetirizine 10 mg PO DAILY electrolytes-dextrose packets PO melatonin 9 mg (3 x 3 mg) PO BEDTIME multivitamin 1 tab PO DAILY olanzapine 15 mg PO BEDTIME omega-3 acid ethyl esters 2 caps PO BID 30 days pantoprazole 20 mg PO DAILY Tobacco use date assessed: 07/21/23 Dental Screening Dental Screen Date: 07/21/23 HPI PE HPI Details Pt is here for a PE. Will order labs. Pt sees a therapist and a psychiatrist. He is using nicotine gum. Pt also sees derm for his HS. [facility]LY [facility], [facility] Medical History Fatty liver Asthma Schizoaffective disorder Family History Father No problems noted. Mother No problems noted. Sister No problems noted. Maternal Uncle Substance use disorder Family/Other Substance use disorder Social History Household Members: Family Housing: House Do you presently have visiting nurse or other home services: No Alcohol intake: current Alcohol intake frequency: holidays/special occasions only Patient Tobacco Use Status: Former Tobacco user Tobacco use type: Cigarette Cigarettes Per Day: 15 e-Cigarette/Vaping Use: Never Used Second Hand Smoke Exposure: No Substance Use Type: Marijuana service: No Sexual orientation: Straight/Heterosexual Cognitive needs: No Hearing needs: No Vision needs: No Questionnaire PHQ-9 Over the last 2 weeks, how often have you been bothered by any of the following problems? [id number] - PHQ-9 Billing: Patient declined-do not bill Source: Developed by Drs. Omar Lucero, Rubina Melara, Nicola Suh and colleagues, with an educational conrad from [employer]. Thrive Questionnaire Date Thrive assessed: 02/01/24 I am a: Patient What is your living situation today?: I have a place to live, but I am worried about losing it in the future Within the past 12 months, did the food you bought not last and you didn't have the money to get more?: I choose not to answer this question Within the past 12 months, did you worry whether your food would run out before you got money to buy more?: Sometimes True Do you have trouble paying for medicines?: No Do you have trouble getting transportation to medical appointments?: No Do you have trouble paying your heating and electricity bill?: No Do you have trouble taking care of your child, family member or friend?: No Do you have trouble with day-to-day activities such as bathing, preparing meals, shopping, managing finances, etc.?: No Are you currently unemployed and looking for a job?: No Are you interested in more education?: I choose not to answer this question Please select the resources that you would like help with: None Currently or been in a relationship where the following occur: No concerns reported THRIVE Score: 2 AUDIT C Alcohol Use Questionnaire (AUDIT-C) 1. How often do you have a drink containing alcohol?: Monthly or less 2. How many drinks containing alcohol do you have on a typical day when you are drinking?: 3 or 4 3. How often do you have six or more drinks on one occasion?: Less than monthly Total Score: 3 Score Reviewed/Action Taken: Yes ALEXX-7 AMB Questionnaire ALEXX-7 Date ALEXX - 7 assessed: 10/22/23 Source: Developed by Drs. Omar Lucero, Rubina Melara, Nicola Suh and colleagues, with an educational conrad from [employer]. Review of Systems Const Denies chills and Denies fever(s) Eyes Denies blurry vision ENT Denies vertigo, Denies dizziness and Denies sore throat Card Denies chest pain at rest, Denies chest pain with activity, Denies diaphoresis, Denies dyspnea and Denies dyspnea on exertion Resp Denies cough, Denies dyspnea, Denies dyspnea on exertion and Denies wheezing GI Denies abdominal pain, Denies melena, Denies hematochezia, Denies constipation, Denies diarrhea and Denies loose stools Denies hematuria Musc Denies numbness and Denies tingling Skin/Breast Denies lesions Neuro Denies vertigo, Denies dizziness, Denies numbness and Denies tingling Psych Denies anxiety, Denies depression, Denies homicidal ideation, Denies suicidal ideation and Denies other (substance abuse) Aller/Immun Denies wheezing Physical exam (Primary Care) Vital Signs: Last Vital Signs Pulse 70 02/01/24 11:22 BP 112/76 02/01/24 11:22 Pulse Ox 96 02/01/24 11:22 BMI result Body Mass Index 53.1 Tobacco/Smoking Status: Tobacco use Status Tobacco use date assessed 07/21/23 02/01/24 11:27 Patient Tobacco Use Status Former Tobacco user 02/01/24 11:27 Tobacco use type Cigarette 02/01/24 11:27 e-Cigarette/Vaping Use Never Used 02/01/24 11:27 Thrive Assessment: Date of Thrive Assessment Date Thrive assessed 02/01/24 02/01/24 11:27 Currently or been in a relationship where the following occur: No concerns reported Const General: cooperative Nutritional Appearance: obese morbidly obese Orientation/consciousness: patient oriented x3 HENMT Head: Yes normal to inspection, Yes normocephalic and Yes atraumatic Ears: TM's normal bilaterally Eyes General: appearance normal, both eyes and all related structures Alignment and Position: alignment normal and position normal Neck Neck: Yes normal visual inspection, Yes no lymphadenopathy and Yes supple Resp Effort & Inspection: normal respiratory effort Auscultation: clear to auscultation bilaterally Cardio Rate: regular rate Rhythm: regular rhythm Heart sounds: S1 normal heart sound present, S2 normal heart sound present and no murmurs GI Palpation (GI): Soft to palpation and nontender Auscultation: normal bowel sounds Male General Exam: Yes normal external exam Penis: normal penis Scrotum: scrotum normal, testes descended bilaterally and no inguinal hernias Testes: no testicular mass Skin Other: scarring to left axilla (HS) Rashes: no rashes Neuro General: patient oriented x3, moves all extremities, no focal motor deficits and deep tendon reflexes 2+ bilaterally Romberg Test: Negative Psych Appearance: grossly normal Mental Status: mental status grossly normal Speech and movement: Normal speech and movement present Affect: normal affect Attitude: cooperative Thought process: Normal thought process present Thought content: Normal thought content present Insight: Good insight present (Psych) Judgement: Good judgement present (Psych) Coding Level of Care Code Est Pt Prev Care 18-39y(67666) Diagnoses Physical exam Z00.00 Assessment & Plan Assessment & Plan (1) Physical exam: Code(s): Z. - Encounter for general adult medical examination without abnormal findings Category: Medical Plan: Labs ordered Plan The patient agreed to the use of a medical i d sales for this encounter. Scribed for ESTELA Norton by Lis[facility] Han medical i d sales, on 02/01/2024 at 11:40 EST. Orders: Orders Comprehensive [place]. Panel Fast Today Z00.00 - Encounter for general adult medical examination without abnormal findings UA CC w/rflx Micro + Cult Today Z00.00 - Encounter for general adult medical examination without abnormal findings Complete Blood Count Auto Diff Today Z00.00 - Encounter for general adult medical examination without abnormal findings TSH reflex Free T4 Today Z00.00 - Encounter for general adult medical examination without abnormal findings Lipid Panel Today Z00.00 - Encounter for general adult medical examination without abnormal findings Medications: Refilled albuterol sulfate 90 mcg/actuation 1 inh inhalation QID 30 days PRN 8.5 grams 2RF shortness of breath or wheezing
== END 2024-02-01 11:54 | disposition home or self-care (01) ==
PROVIDERS: PCP Nurse Practitioner Family; Visit Provider Nurse Practitioner Family
DX: Z00.00 Encounter for general adult medical examination without abnormal findings (principal)

== ENCOUNTER 2024-02-10 14:15 | Outpatient (AMB) | payer OTHER, SELFPAY ==
[2024-02-10 14:55] VITALS: BP 130/90; PULSE 87; O2SAT 98; BMI 53.2
--- NOTE | 2024-02-10 14:55 | MHC.OFFWIV ---
Intake Vital Signs 02/10/24 14:55 Height 5 ft 8 in Weight 350 lb BMI 53.2 BP 130/90 H Blood Pressure Location Rt brachial Position Sitting Pulse 87 Pulse Source Pulse Oximeter Pulse Oximetry (%) 98 Oxygen Delivery Method Room Air Intake Visit Reasons: EP-neck bump Intake Note: Patient here for bumo on back of head/neck that he noticed about 4 days ago. Patient Tobacco Use Status: Former Tobacco user Allergies Sulfa (Sulfonamide Antibiotics) Allergy (Unknown, Verified 02/10/24 14:55) hives sulfamethoxazole [From BACTRIM] Allergy (Unknown, Verified 02/10/24 14:55) HIVES trimethoprim [From BACTRIM] Allergy (Unknown, Verified 02/10/24 14:55) HIVES SEASONAL ALLERGIES Allergy (Unknown, Uncoded 02/10/24 14:55) UNKNOWN Do you need a note to return to daycare/school/sports/work: No HPI EP-neck bump HPI Details This note is constructed using voice recognition software. While every effort has been made to ensure accuracy, physician credentialing specialist errors may have been included. The patient is a 28 year old male who presents to the clinic today with bump to the back of the neck which he noticed 4 days ago. He denies pain, but reports that it is ?annoying? and if he would rate it on a scale of 0-10 gives it a 1. He denies fever, chills alteration and range of motion or strength of arms. He has not tried anything to make it go away. He does report that he uses clippers to cut the hair on the back of his neck and his head. He does think that he may have clipped his skin just slightly prior to the notice of the bump. [facility] Medical History (Updated 02/01/24 @ 11:53 by ESTELA Bland) Hidradenitis suppurativa of left axilla Fatty liver Asthma Schizoaffective disorder Family History Father No problems noted. Mother No problems noted. Sister No problems noted. Maternal Uncle Substance use disorder Family/Other Substance use disorder Social History Household Members: Family Housing: House Do you presently have visiting nurse or other home services: No Alcohol intake: current Alcohol intake frequency: holidays/special occasions only Patient Tobacco Use Status: Former Tobacco user Tobacco use type: Cigarette Cigarettes Per Day: 15 e-Cigarette/Vaping Use: Never Used Second Hand Smoke Exposure: No Substance Use Type: Marijuana service: No Sexual orientation: Straight/Heterosexual Cognitive needs: No Hearing needs: No Vision needs: No Review of Systems Const All systems reviewed & are unremarkable except as noted in HPI and below Physical Exam Vital Signs: Last Vital Signs Pulse 87 02/10/24 14:55 BP 130/90 H 02/10/24 14:55 Pulse Ox 98 02/10/24 14:55 Oxygen Delivery Method Room Air 02/10/24 14:55 BMI result Body Mass Index 53.2 Const General: cooperative, healthy appearing, comfortable, no acute distress and well developed Limitations: no limitations Resp Effort & Inspection: normal respiratory effort and able to speak in complete sentences Skin Other: Right posterior cervical ingrown hair with surrounding erythema, without warmth. Poorly defined area of induration beneath this. Assessment & Plan Assessment & Plan (1) Cellulitis: Code(s): L03.90 - Cellulitis, unspecified Qualifiers: Site of cellulitis: head Qualified Code(s): L03.811 - Cellulitis of head [any part, except face] Plan: Antibiotics sent to requested pharmacy. Advised patient that due to location, size, and lack of obvious structure, I&D is not appropriate at this time. Advised warm compresses at least twice per day. Advised follow up as needed with worsening or failure to resolve. Plan See above for full details and plan. Medications: New doxycycline hyclate 100 mg PO BID 10 days 20 caps 0RF Coding Level of Care Code Est Pt Level 3 (67623) Diagnoses Cellulitis of head except face L03.811 Site of cellulitis: head
== END 2024-02-10 15:31 | disposition home or self-care (01) ==
PROVIDERS: PCP Nurse Practitioner Family; Visit Provider Registered Nurse
DX: L03.811 Cellulitis of head [any part, except face] (principal)

== ENCOUNTER → 2024-02-10 14:15 | Outpatient (BNVA) | payer OTHER, SELFPAY | PROVIDERS: PCP Nurse Practitioner Family; Visit Provider Registered Nurse | DX: L03.811 Cellulitis of head [any part, except face] (principal) | CPT/HCPCS: 99212 ==

== ENCOUNTER 2024-02-26 12:30 | Outpatient (AMB) | payer OTHER, SELFPAY ==
--- NOTE | 2024-02-26 12:37 | A.OFFVIS_ITS ---
Vital Signs 02/26/24 12:38 Height 5 ft 8 in Weight 351 lb BMI 53.4 Intake Visit Reasons: f/u for CPAP supplies Intake Note: Patient presents for follow up cpap supplies. Allergies Sulfa (Sulfonamide Antibiotics) Allergy (Unknown, Verified 02/26/24 12:40) hives sulfamethoxazole [From BACTRIM] Allergy (Unknown, Verified 02/26/24 12:40) HIVES trimethoprim [From BACTRIM] Allergy (Unknown, Verified 02/26/24 12:40) HIVES SEASONAL ALLERGIES Allergy (Unknown, Uncoded 02/26/24 12:40) UNKNOWN HPI Comments Details: 28y/o male with mild Obstructive Sleep Apnea comes for follow up . He was started on AUtoPAP 5-20 cm and was initially noncompliant due to difficulty with pressure setting . But now he is using the CPAP everyday and wants to get new supplies. CPAP is helping with night time sleep and he is less tired during daytime. [facility] Medical History (Updated 02/26/24 @ 12:58 by Betty So MD) Obstructive sleep apnea hypopnea, mild Hidradenitis suppurativa of left axilla Fatty liver Asthma Schizoaffective disorder Family History Father No problems noted. Mother No problems noted. Sister No problems noted. Maternal Uncle Substance use disorder Family/Other Substance use disorder Social History Household Members: Family Housing: House Do you presently have visiting nurse or other home services: No Alcohol intake: current Alcohol intake frequency: holidays/special occasions only Patient Tobacco Use Status: Former Tobacco user Tobacco use type: Cigarette Cigarettes Per Day: 15 e-Cigarette/Vaping Use: Never Used Second Hand Smoke Exposure: No Substance Use Type: Marijuana service: No Sexual orientation: Straight/Heterosexual Cognitive needs: No Hearing needs: No Vision needs: No Review of Systems ENT Reports Normal hearing present Neuro Reports Normal hearing present Physical Exam Vital Signs: BMI result Body Mass Index 53.4 Const General: cooperative and tired appearing Nutritional Appearance: obese Orientation/consciousness: patient oriented x3 Neck Neck: Yes full ROM and Yes supple Resp Effort & Inspection: normal respiratory effort and able to speak in complete sentences Neuro General: patient oriented x3, gait normal and moves all extremities Cranial nerves: Yes Bilaterally intact EOM present, Yes Normal facial strength present, Yes Midline tongue present, Yes Symmetric palate elevation present, Yes Normal hearing present and Yes Ability to bilaterally elevate shoulders present Cognition (Neuro): normal cognition Gait exam (Neuro): Normal gait present Motor exam (neuro): 5/5 motor strength present throughout, Pronator motor function not present and no tremor noted Psych Appearance: grossly normal Mental Status: mental status grossly normal Speech and movement: Normal speech and movement present Affect: normal affect Attitude: cooperative Results Reviewed Results Reviewed: PSG Mar 2023 Mild TATUM AHI 9 Oxygen pippa 91%. Assessment & Plan Assessment & Plan (1) Obstructive sleep apnea hypopnea, mild: Code(s): G47.33 - Obstructive sleep apnea (adult) (pediatric) Category: Medical (2) Obesity, morbid, BMI 50 or higher: Code(s): E66.01 - Morbid (severe) obesity due to excess calories Category: Medical Plan I will send a pres for new supplies will obtain his compliance report. Coding Level of Care Code Est Pt Level 4 (67030) Diagnoses Obstructive sleep apnea hypopnea, mild G47.33 Obesity, morbid, BMI 50 or higher E66.01
[2024-02-26 12:38] VITALS: BMI 53.4
== END 2024-02-26 13:01 | disposition home or self-care (01) ==
PROVIDERS: PCP Nurse Practitioner Family; Visit Provider Psychiatry & Neurology Neurology
DX: G47.33 Obstructive sleep apnea (adult) (pediatric) (principal); E66.01 Morbid (severe) obesity due to excess calories
CPT/HCPCS: 99214

== ENCOUNTER → 2024-02-26 12:30 | Outpatient (BNVA) | payer OTHER, SELFPAY | PROVIDERS: PCP Nurse Practitioner Family; Visit Provider Psychiatry & Neurology Neurology | DX: G47.33 Obstructive sleep apnea (adult) (pediatric) (principal); E66.01 Morbid (severe) obesity due to excess calories; Z87.891 Personal history of nicotine dependence; Z68.43 Body mass index [BMI] 50.0-59.9, adult; Z99.89 Dependence on other enabling machines and devices | CPT/HCPCS: 99212 ==

== ENCOUNTER 2024-02-27 04:42 | Emergency (ER) | payer OTHER, SELFPAY ==
[2024-02-27 04:43] VITALS: BP 127/64; PULSE 75; RESP 18; TEMP 36.7; O2SAT 97; BMI 53.2
--- NOTE | 2024-02-27 07:05 | ED_ITS ---
HPI - General Adult General Chief complaint: General Medical Stated complaint: HS Flare up Time Seen by Provider: 02/27/24 05:38 Source: patient Mode of arrival: ambulatory Limitations: no limitations History of Present Illness ED Provider: Dr. 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 He states he has had pain for proximally 3 days with increased pain over the last week. He does have a servomechanism assembler that follows him for his suppurative hidradenitis. He states that the servomechanism assembler injected the area with Kenalog but this did not improve his symptoms. He states the pain has gotten severe and the area of inflammation is gotten larger. He describes the area as a long done genetic with the central soft spot. He states that he has never had to have an incision and drainage unusually these inflammatory abscesses drained spontaneously. He denied fever, chills, nausea, vomiting, fatigue. Related Data Home Medications ?Medication ?Instructions ?Recorded ?Confirmed cetirizine 10 mg tablet 10 mg PO DAILY 07/17/22 02/01/24 multivitamin 1 tab PO DAILY 01/19/23 02/01/24 electrolytes-dextrose oral packet packet PO 02/01/24 02/01/24 olanzapine 15 mg tablet 15 mg PO BEDTIME 02/01/24 02/01/24 Previous Rx's ?Medication ?Instructions ?Recorded melatonin 3 mg tablet 9 mg (3 x 3 mg) PO BEDTIME #90 tabs 07/31/21 omega-3 acid ethyl esters 1 gram 2 cap PO BID 30 days #120 caps 01/19/23 capsule pantoprazole 20 mg tablet,delayed 20 mg PO DAILY #90 tabs 12/01/23 release albuterol sulfate 90 mcg/actuation 1 inh inhalation QID PRN shortness 02/01/24 aerosol inhaler of breath or wheezing 30 days #8.5 grams doxycycline hyclate 100 mg capsule 100 mg PO BID 10 days #20 caps 02/10/24 cephalexin 500 mg capsule 500 mg PO QID 5 days #20 caps 02/27/24 doxycycline hyclate 100 mg tablet 100 mg PO Q12H 5 days #10 tabs 02/27/24 oxycodone 5 mg tablet 5 mg PO Q6H PRN pain #10 tabs 02/27/24 Allergies Allergy/AdvReac Type Severity Reaction Status Date / Time Sulfa (Sulfonamide Allergy Unknown hives Verified 02/27/24 04:45 Antibiotics) sulfamethoxazole Allergy Unknown HIVES Verified 02/27/24 04:45 [From BACTRIM] trimethoprim [From BACTRIM] Allergy Unknown HIVES Verified 02/27/24 04:45 SEASONAL ALLERGIES Allergy Unknown UNKNOWN Uncoded 02/26/24 12:40 Review of Systems Review of Systems: Yes all other systems are reviewed and are negative [facility] Past Medical History Medical History (Updated 02/27/24 @ 07:10 by Partha Rogers MD) Obstructive sleep apnea hypopnea, mild Hidradenitis suppurativa of left axilla Fatty liver Asthma Schizoaffective disorder Family History Family History Father No problems noted. Mother No problems noted. Sister No problems noted. Maternal Uncle Substance use disorder Family/Other Substance use disorder Social History Social History Household Members: Family Housing: House Do you presently have visiting nurse or other home services: No Alcohol intake: current Alcohol intake frequency: holidays/special occasions only Patient Tobacco Use Status: Former Tobacco user Tobacco use type: Cigarette Cigarettes Per Day: 15 e-Cigarette/Vaping Use: Never Used Second Hand Smoke Exposure: No Substance Use Type: Marijuana Advance Directives: No Advance Directives Information Provided: Yes Do you have a plan to hurt others: No Plan service: No Sexual orientation: Straight/Heterosexual Cognitive needs: No Hearing needs: No Vision needs: No Physical Exam ED Vital Signs: Vital Signs - 24 hr 02/27/24 04:43 Temperature 98.1 F Pulse Rate 75 Respiratory Rate 18 Blood Pressure 127/64 Pulse Oximetry 97 Oxygen Delivery Method Room Air BMI result Body Mass Index 53.2 Vital signs were normal Exam: General: Awake, alert in no distress Right axilla: The patient has a 4 x 2 cm area of inflammation which is mostly indurated with a very small central area that is flocculent. The area is extremely tender to palpation. Psych: Pleasant, cooperative Medical Decision Making Medical Decision Making MDM Narrative: 28-year-old male with a history of suppurative hidradenitis to the axilla, hy perlipidemia, obesity, TATUM, asthma, schizoaffective disorder who presents emergency department for evaluation of pain in his right axilla area x3 weeks worse x2 days. Patient did see his servomechanism assembler and the patient reports that his right axilla area was injected with Kenalog with no improvement of his symptoms. The inflammatory area has increased in size in his become more painful. Patient describes a central area of flocculence but the majority of the area is hard to the touch and extremely painful. He had no systemic symptoms. Exam of his right axilla revealed a early abscess proximally 4 x 2 cm with a central area of flocculence but the majority is indurated. Differential diagnosis: ?Includes but is not limited to abscess, early abscess, inflammatory hidradenitis Course: 07:23 Patient was exam is consistent with flare-up of his suppurative hydradenitis and he may have an early abscess. Patient does not want an I and D at this time and would like to try medical management 1st. Patient was started on Keflex 500 mg 4 times a day for 5 days and doxycycline 200 mg twice a day for 5 days. He was advised to take ibuprofen and Tylenol and for pain not relieved by these medications he was prescribed oxycodone. The patient was advised to use a heating pad on low to medium for 15 minutes 4 to 6 times a day to improve the blood flow to the area and help the abscess point and drained. I did tell the patient if he was not better in 5 days you should try to follow up with our surgeon on-call and if the surgeon can not see the patient he should return to the emergency department for re-evaluation and possible incision and drainage in the ED. Admission/Observation Consideration of admission/observation: Escalation of care including admission/observation considered (No) Prescription Management I considered prescription management with: Pain Medication (Oxycodone) and Antibiotic (Cephalexin and doxycycline) Chronic Conditions Patient?s care impacted by: Other (Suppurative hydradenitis, schizoaffective disorder) Discharge Plan Discharge Clinical Impression: Suppurative hidradenitis Patient Disposition: Home, Self-Care Instructions: Hidradenitis Suppurativa (ED) Additional Instructions: You have a flare-up of your HS in your right armpit. You may have an early abscess. I am going to treat you with antibiotics and pain medicines for 5 days. Take Keflex (cephalexin) 500 mg pills, 1 pill 3 times a day for 7 days. Take doxycycline 100 mg, 1 pill every 12 hours for 7 days Take ibuprofen 200 mg pills, 2 pills every 6 hours as needed for pain. Take Tylenol (acetaminophen) 500 mg pills, 2 pills every 6 hours as needed for pain. For pain not relieved by ibuprofen or Tylenol take oxycodone 5 mg pills, 1 pill every 4 hours as needed for pain. Do not drive or work while taking this medication since they can cause sleepiness. Oxycodone is a narcotic medication that can be addicting. If you are concerned about addiction you can ask the pharmacist for less pills or do not get this prescription filled. Use an electric heating pad on low to medium heat for 15 minutes 4 to 6 times a day in your right armpit. This will increase the blood flow to the early abscess and hopefully it will drain by itself. If this does not drain then you need to either see the surgeon on-call or come to the emergency department for re-evaluation. Call the surgeon on-call to see if you can make an appointment in 5 days and if they can not see you then return to the emergency department if you are not better in 5 days.. Prescriptions: New cephalexin 500 mg capsule 500 mg PO QID 5 Days Qty: 20 0RF doxycycline hyclate 100 mg tablet 100 mg PO Q12H 5 Days Qty: 10 0RF oxycodone 5 mg tablet 5 mg PO Q6H PRN (Reason: pain) Qty: 10 0RF Rx Instructions: Partial Fill upon patient request. No Action pantoprazole 20 mg tablet,delayed release (DR/EC) 20 mg PO DAILY Qty: 90 1RF melatonin 3 mg Tablet 9 mg PO BEDTIME Qty: 90 0RF multivitamin Tablet 1 tab PO DAILY omega-3 acid ethyl esters 1 gram capsule 2 cap PO BID 30 Days Qty: 120 2RF cetirizine 10 mg tablet 10 mg PO DAILY olanzapine 15 mg tablet 15 mg PO BEDTIME electrolytes-dextrose Packet PO albuterol sulfate 90 mcg/actuation HFA aerosol inhaler 1 inh inhalation QID PRN (Reason: shortness of breath or wheezing) 30 Days Qty: 8.5 2RF doxycycline hyclate 100 mg capsule 100 mg PO BID 10 Days Qty: 20 0RF Referrals: Dhruv Bee MD [Physician] - 5 days (Suppurative hydradenitis, right axilla early abscess. Treated with doxycycline, cephalexin x5 days and oxycodone days. ) Print Language: Tamazight
[2024-02-27 07:40] VITALS: BP 111/74; PULSE 66; RESP 15; TEMP 36.6; O2SAT 96
[2024-02-27 07:55] VITALS: BP 111/74; PULSE 66; RESP 15; TEMP 36.6; O2SAT 96
== END 2024-02-27 07:55 | disposition home or self-care (01) ==
PROVIDERS: Emergency Provider Emergency Medicine Emergency Medical Services; PCP Nurse Practitioner Family
DX: L73.2 Hidradenitis suppurativa (principal); E78.5 Hyperlipidemia, unspecified
CPT/HCPCS: 99283

== ENCOUNTER → 2024-06-29 20:30 | Outpatient (REF) | payer OTHER, SELFPAY ==
--- OUTSIDE RECORDS SUMMARY | 2024-06-29 21:39 | XMS_ITS | Encounter Summary ---
Author Organization [facility] Address [address] [place] [phone] Phone Care Team Providers Care Automotive Brake Specialist Name Role Phone Kerry Raines MD Primary Care Provider Encounter Details Date Type Department Care Team (Late st Contact Info) Description 11/06/2016 Conversion Encounter [facility] [place] [address] [place] [address] Social History Tobacco Use Types Packs/Day Years Used Date Smoking Tobacco: Never Comments:Never smoker Sex and Gender Information Value Date Recorded Sex Assigned at Not on file Legal Sex Male 5:01 PM EDT Gender Identity Not on file Sexual Orientation Not on file documented as of this encounter Plan of Treatment Not on file documented as of this encounter Visit Diagnoses Not on filedocumented in this encounter Care Teams Automotive Brake Specialist Relationship Specialty Start Date End Date Kerry Raines MD [address] [place] [address] PCP - General 10/31/16 06/30/22 documented as of this encounter
--- OUTSIDE RECORDS SUMMARY | 2024-06-29 21:39 | XMS_ITS | Clinical Summary ---
Author Organization [facility] Address [address] [place] [address] Phone Care Team Providers Care Electronic Communications Technician Name Role Phone Unavailable Primary Care Provider Unavailabl e Allergies No known active allergies Medications No known medications Active Problems Problem Noted Date Diagnosed Date Obesity 07/22/2009 Immunizations Immunization Administration Dates Next Due DTP 02/12/1998, 7,1996,08/05 DTaP 5 05/28/2001 HPV, Quadrivalent 09/13/2012,02/27/2012,12/12/19 12 Hep A, ped/adol 09/05/2014,03/03/2014 Hep B, ped/adol 1996,1996 Hib (PRP-T) 05/18/1998, 7,1996,08/05 IPV 05/28/2001 Influenza Split 12/12/2011,12/09/2010 Influenza, injectable, quadrivalent 03/03/2014 Influenza, injectable, quadr ivalent, preservative free 01/29/2015,03/08/2013 MMR 05/28/2001,05/21/1997 Meningococcal Conj (Menactra) MCV4P 09/10/2016,0 08/23/2007 OPV 1996,1996,1996 Tdap 08/23/2007 Varicella 08/23/2007,05/21/1997 Family History Relation Name Status Comments Half-Sister Alive Half sister (M) : Alive and well Maternal Grandfather Alive materna l grandparent: Diabetes mellitus Maternal Great-Grandmother M GGM: *Heart Disease Mother Alive Mother: Anemia Other No family histo ry of *Thrombophilia, No family history of *Sudden /[place] under 55, Family history of Hypertension, No family history of *Dental caries, Family history of Asthma, Family history of Diabetes mellitus, No family history of *CVA/Stroke, Family history of Hyperlipidemia Social History Tobacco Use Types Packs/Day Years Used Date Smoking Tobacco: Light Smoker Smokeless Tobacco: Current Comments:Never smoker Sex and Gender Information Value Date Recorded Sex Assigned at Not on file Legal Sex Male 5:01 PM EDT Gender Identity Not on file Sexual Orientation Not on file Last Filed Vital Signs Vital Sign Reading Time Taken Comments Blood Pressure 130/87 12/16/2016 11:20 AM EDT Pulse 77 12/16/2016 11:20 AM EDT Temperature 36.7 ??C (98.1 ??F) 12/16/2016 11:20 AM E DT Respiratory Rate - - Oxygen Saturation 98% 08/04/2012 12:00 AM EDT Inhaled Oxygen Concentration - - Weight 112 kg (247 lb) 12/16/2016 11:20 AM EDT Height 168.9 cm (5' 6.5 ) 09/10/2016 12:00 AM ED T Body Mass Index 39.27 09/10/2016 12:00 AM EDT Plan of Treatment Health Maintenance Due Date Last Done Comments Hepatitis B Vaccines (3 of 3 - 3-dose series) 02/01/1997 1996, 1996 DTaP,Tdap,and Td Vaccines (7 - Td or Tdap) 08/22/2017 08/23/2007, 05/28/2001, 02/12/1998, Additional history exists Influenza Vaccines (#1) 2023 01/30/20 15, 03/03/2014, 03/08/2013, Additional history exists COVID-19 Vaccine ( season) 2023 HIB Vaccines Completed 05/18/1998, 11/21, 1996, Additional history exists IPV Vaccines Completed 05/28/2001, 11/21, 1996, Additional history exists MMR Vaccines Completed 05/28/2001, 05/21/1997 Varicella Vaccines Completed 08/23/2007, 05/21/1997 HPV Vaccines Completed 09/13/2012, 09/2011, 12/12/2011 Hepatitis A Vaccines Completed 09/05/2014, 03/03/20 14 Meningococcal Vaccine Aged Out 09/10/2016, 008 No longer eligible based on patient's age to complete this topic Men B Vaccine Aged Out No longer elig ible based on patient's age to complete this topic Pneumococcal Vaccine Aged Out No long er eligible based on patient's age to complete this topic
== END ==
LOC: HO.SL 20:30
PROVIDERS: PCP Nurse Practitioner Family; Visit Provider Psychiatry & Neurology Neurology
DX: E66.01 Morbid (severe) obesity due to excess calories (principal); G47.30 Sleep apnea, unspecified
CPT/HCPCS: 95810

== ENCOUNTER → 2024-06-29 23:14 | Outpatient (BNV) | payer OTHER, SELFPAY | PROVIDERS: PCP Nurse Practitioner Family; Visit Provider Psychiatry & Neurology Neurology | DX: G47.33 Obstructive sleep apnea (adult) (pediatric) (principal) | CPT/HCPCS: 95810 ==

== ENCOUNTER 2024-07-15 11:13 | Outpatient (AMB) | payer OTHER, SELFPAY ==
[2024-07-15 11:15] VITALS: BP 122/78; PULSE 86; O2SAT 95; BMI 54.4
--- NOTE | 2024-07-15 11:15 | A.OFFVIS_ITS ---
Vital Signs 07/15/24 11:15 Height 5 ft 8 in Weight 357 lb 8 oz BMI 54.4 BP 122/78 Blood Pressure Location Lt brachial Position Sitting Pulse 86 Pulse Source Pulse Oximeter Pulse Oximetry (%) 95 Oxygen Delivery Method Room Air Intake Visit Reasons: Follow up Intake Note: Patient presents follow up TATUM. Non compliant. Using CPAP not transmitting. Allergies Sulfa (Sulfonamide Antibiotics) Allergy (Unknown, Verified 07/15/24 11:19) hives sulfamethoxazole [From BACTRIM] Allergy (Unknown, Verified 07/15/24 11:19) HIVES trimethoprim [From BACTRIM] Allergy (Unknown, Verified 07/15/24 11:19) HIVES SEASONAL ALLERGIES Allergy (Unknown, Uncoded 02/26/24 12:40) UNKNOWN HPI Comments Details: 29 y/o male with mild Obstructive Sleep Apnea comes for follow up visit. His BMI is elevated 54.4, he goes to sleep at 2am and wakes up at 12 -1pm and has one bathroom break, he continues to have fragmented sleep, because he is unable to breath. He can't get enough air into his lungs when he takes a breath when sleeping. He works the second shift and gets home at midnight and has difficulty falling asleep. He is a smoker of grabba , which is crushed up tobacco leaves, with MJ, daily 4-6 joints daily, he has tried smoking cessation both the gum and the patch. He was started on APAP 5-20 cm and was initially non-compliant due to difficulty with pressure settings, and adjustments now he is using the CPAP everyday and wants to get new supplies as his SD card does not register the data. He feels more comfortable with the use of his CPAP and it has helped improve his night time sleep regiment, he feels less tired. June 09, 2024 RX for new supply order sent, his mask is broken and he is unable to get new supplies. June 22, 2024 patient had a PSG completed and is awaiting results last PSG was incomplete due to 78 min of sleep, no REM or slow wave monitoring. Will follow up for compliance once he has proper supplies and is able to use equipment for a sufficient time period. He washes his mask, changes the filters he has from [employer], and changes the water in his reservoir as needed. [facility] Medical History Obstructive sleep apnea hypopnea, mild Hidradenitis suppurativa of left axilla Fatty liver Asthma Schizoaffective disorder Family History Father No problems noted. Mother No problems noted. Sister No problems noted. Maternal Uncle Substance use disorder Family/Other Substance use disorder Social History Household Members: Family Housing: House Do you presently have visiting nurse or other home services: No Alcohol intake: current Alcohol intake frequency: holidays/special occasions only Patient Tobacco Use Status: Former Tobacco user Tobacco use type: Cigarette Cigarettes Per Day: 15 e-Cigarette/Vaping Use: Never Used Second Hand Smoke Exposure: No Substance Use Type: Marijuana service: No Sexual orientation: Straight/Heterosexual Cognitive needs: No Hearing needs: No Vision needs: No Review of Systems ENT Reports Normal hearing present Neuro Reports Normal hearing present Physical Exam Vital Signs: Last Vital Signs Pulse 86 07/15/24 11:15 BP 122/78 07/15/24 11:15 Pulse Ox 95 07/15/24 11:15 Oxygen Delivery Method Room Air 07/15/24 11:15 BMI result Body Mass Index 54.4 Const General: cooperative and tired appearing Nutritional Appearance: obese Orientation/consciousness: patient oriented x3 Neck Neck: Yes full ROM and Yes supple Resp Effort & Inspection: normal respiratory effort and able to speak in complete sentences Neuro General: patient oriented x3, gait normal and moves all extremities Cranial nerves: Yes Bilaterally intact EOM present, Yes Normal facial strength present, Yes Midline tongue present, Yes Symmetric palate elevation present, Yes Normal hearing present and Yes Ability to bilaterally elevate shoulders present Cognition (Neuro): normal cognition Gait exam (Neuro): Normal gait present Motor exam (neuro): 5/5 motor strength present throughout, Pronator motor function not present and no tremor noted Psych Appearance: grossly normal Mental Status: mental status grossly normal Speech and movement: Normal speech and movement present Affect: normal affect Attitude: cooperative Assessment & Plan Assessment & Plan (1) Daytime sleepiness: Code(s): R40.0 - Somnolence Category: Medical (2) Asthma: Code(s): J45.909 - Unspecified asthma, uncomplicated Category: Medical Qualifiers: Asthma complication type: unspecified Asthma persistence: unspecified Asthma severity: unspecified severity Qualified Code(s): J45.909 - Unspecified asthma, uncomplicated (3) Obstructive sleep apnea hypopnea, mild: Code(s): G47.33 - Obstructive sleep apnea (adult) (pediatric) Category: Medical Plan TATUM compliance is emphasized, will get a new SD card send C the data, then get new supplies needed, since his mask is torn and pressures needed adjustment. Asthma f/u with Pulmonology for PFTS BMI is 54.4 and he needs support with Weight management Labs for chronic fatigue. Orders: Orders Hemoglobin A1c Today F32.A - Depression, unspecified, R40.0 - Somnolence, R53.83 - Other fatigue Homocysteine Today F32.A - Depression, unspecified, G47.9 - Sleep disorder, unspecified, R40.0 - Somnolence, R53.83 - Other fatigue Lipid Panel with Reflex Today F32.A - Depression, unspecified, R40.0 - Somnolence, R53.83 - Other fatigue Ferritin Today F32.A - Depression, unspecified, R40.0 - Somnolence, R53.83 - Other fatigue IRON PROFILE Today F32.A - Depression, unspecified, G47.9 - Sleep disorder, unspecified, R40.0 - Somnolence, R53.83 - Other fatigue Methylmalonic Acid Today F32.A - Depression, unspecified, G47.9 - Sleep disorder, unspecified, R40.0 - Somnolence, R53.83 - Other fatigue TSH reflex Free T4 Today F32.A - Depression, unspecified, R40.0 - Somnolence, R53.83 - Other fatigue Vitamin B12 and Folate Today F32.A - Depression, unspecified, R40.0 - Somnolence, R53.83 - Other fatigue Vitamin D 25-OH Total Today F32.A - Depression, unspecified, R40.0 - Somnolence, R53.83 - Other fatigue Complete Blood Count no Diff Today F32.A - Depression, unspecified, R40.0 - Somnolence, R53.83 - Other fatigue Comprehensive Met. Panel Today F32.A - Depression, unspecified, R40.0 - Somnolence, R53.83 - Other fatigue PFT pulmonary function test Today G47.33 - Obstructive sleep apnea (adult) (pediatric), J45.909 - Unspecified asthma, uncomplicated Referrals Medical Weight Management Referral E66.01 - Morbid (severe) obesity due to excess calories, G47.33 - Obstructive sleep apnea (adult) (pediatric) Patient Instructions: Sleep Hygiene provided: set a scheduled bedtime and wake time to help regulate the circadian rhythm and balance the release of pituitary hormones. Sleep in a dark room, temperatures below 68 degrees, and no devices n bed. Limit caffeinated products 6 hours prior to bed, and limit fluids 2-4 hours prior to bed. Gentle night yoga, diffusing essential oils, and playing soft music can be relaxing. Patient Education Re: Asthma f/u with Pulmonology for PFTs and Ashtma classification. TATUM sleep pathology explained as patient did not get into REM or slow wave sleep at last PSG, awaiting new PSG results. Weight management BMI is 54.4 and he is motivated to lose weight. Labs complete and f/u in 3 months for compliance. Call [phone] if you have any questions for appts or ([facility] for supplies and SD card or pressure difficulties), do not wait until you are having difficulty with sleep. Continue to take your Olanapine 15mg PO at bedtime, take 10-15 mg of melatonin 3 hours prior to bedtime. Coding Level of Care Code Est Pt Level 4 (97650) Complex EM visit Add On G2211 Diagnoses Daytime sleepiness R40.0 Asthma, unspecified asthma severity, unspecified whether complicated, unspecified whether persistent J45.909 Asthma complication type: unspecified Asthma persistence: unspecified Asthma severity: unspecified severity Obstructive sleep apnea hypopnea, mild G47.33 Time Spent (min) 40 Comment Patient education provided
--- OUTSIDE RECORDS SUMMARY | 2024-07-15 12:05 | XMS_ITS | Encounter Summary ---
Author Organization [facility] Address [address] [place] [phone] Phone Care Team Providers Care Fiscal Services Manager Name Role Phone Kerry Raines MD Primary Care Provider Encounter Details Date Type Department Care Team (Late st Contact Info) Description 11/06/2016 Conversion Encounter [facility] [place] [address] [place] [address] Social History Tobacco Use Types Packs/Day Years [...] on filedocumented in this encounter Care Teams Fiscal Services Manager Relationship Specialty Start Date End Date Kerry Raines MD [address] [place] [address] PCP - General 10/31/16 06/30/22 documented as of this encounter
--- OUTSIDE RECORDS SUMMARY | 2024-07-15 12:05 | XMS_ITS | Clinical Summary ---
Author Organization [facility] Address [address] [place] [phone] Phone Care Team Providers Care Milk Handler Name Role Phone Unavailable Primary Care Provider [...] of *Thrombophilia, No family history of *Sudden /[place] under 55, Family history of Hypertension, No [...]
== END 2024-07-15 12:09 | disposition home or self-care (01) ==
LOC: HO.HSMS 11:14
PROVIDERS: PCP Nurse Practitioner Family; Visit Provider Physician Assistant Medical
DX: R40.0 Somnolence (principal); J45.909 Unspecified asthma, uncomplicated; G47.33 Obstructive sleep apnea (adult) (pediatric)
CPT/HCPCS: 99214; G2211

== ENCOUNTER → 2024-07-15 11:13 | Outpatient (BNVA) | payer OTHER, SELFPAY | PROVIDERS: PCP Nurse Practitioner Family; Visit Provider Physician Assistant Medical | DX: G47.33 Obstructive sleep apnea (adult) (pediatric) (principal); J45.909 Unspecified asthma, uncomplicated; F17.290 Nicotine dependence, other tobacco product, uncomplicated; R40.0 Somnolence; R53.83 Other fatigue; F32.A Depression, unspecified; E66.01 Morbid (severe) obesity due to excess calories; Z68.43 Body mass index [BMI] 50.0-59.9, adult; Z99.89 Dependence on other enabling machines and devices | CPT/HCPCS: 99212 ==

== ENCOUNTER 2024-07-30 14:18 | Outpatient (REF) | payer OTHER, SELFPAY ==
--- OUTSIDE RECORDS SUMMARY | 2024-07-30 14:20 | XMS_ITS | Clinical Summary ---
Author Organization [facility] Address [address] [place] [phone] Phone Care Team Providers Care Seismograph Chief Name Role Phone Unavailable Primary Care Provider [...] of *Thrombophilia, No family history of *Sudden /[place] under 55, Family history of Hypertension, No [...]
--- OUTSIDE RECORDS SUMMARY | 2024-07-30 14:20 | XMS_ITS | Encounter Summary ---
Author Organization [facility] Address [address] [place] [phone] Phone Care Team Providers Care Hot Knife Foxing Cutter Name Role Phone Kerry Raines MD Primary Care Provider Encounter Details Date Type Department Care Team (Late st Contact Info) Description 11/06/2016 Conversion Encounter [facility] [place] [address] [place] [address] Social History Tobacco Use Types Packs/Day Years [...] on filedocumented in this encounter Care Teams Hot Knife Foxing Cutter Relationship Specialty Start Date End Date Kerry Raines MD [address] [place] [address] PCP - General 10/31/16 06/30/22 documented as of this encounter
[2024-07-30 15:13] LABS: MANUAL DIFF FLAG NO
[2024-07-30 15:17] LABS: Basophils Percent Auto 0.3 % (0-2); Eosinophils Absolute Auto 0.2 X10*3/uL (0.0-0.4); Eosinophils Percent Auto 2.3 % (0-4); Hematocrit 44.2 % (42.0-52.0); Hemoglobin 15.1 g/dl (14.0-18.0); Imm Gran Abs Auto 0.02 X10*3/uL (0.00-0.03); Imm Gran Pct Auto 0.3 % (0.0-0.4); Lymphocytes Absolute Auto 2.3 X10*3/uL (1.2-4.9); Lymphocytes Percent Auto 32.2 % (20-40); Mean Corpuscular HGB Conc 34.2 g/dl (31.0-36.0); Mean Corpuscular Hemoglobin 29.5 pg (27.0-33.0); Mean Corpuscular Volume 86.5 fL (80.0-98.0); Mean Platelet Volume 10.9 fL (9.4-12.4); Monocytes Absolute Auto 0.6 X10*3/uL (0.1-1.2); Monocytes Percent Auto 8.7 % (2-11); Neutrophils Percent Auto 56.2 % (45-73); Platelet Count 216 X10*3/uL (160-400); Red Blood Count 5.11 X10*6/uL (4.60-5.80); Red Cell Distribution Width 13.2 % (11.0-16.0)
[2024-07-30 15:19] LABS: Appearance Urine Clear; Color Urine Yellow; Glucose Urine UA Negative (Negative); Leukocyte Esterase Urine Negative (Negative); Nitrite Urine Negative (Negative); Urine Blood Negative (Negative); Urine Ketones Trace mg/dL (Negative); Urine Protein Trace mg/dL (Neg-Trace)
[2024-07-30 15:49] LABS: Alanine Aminotransferase 99 U/L (0-40); Albumin Level 4.2 g/dL (3.5-5.0); Alkaline Phosphatase 71 U/L (39-117); Anion Gap 14 (12-20); Aspartate Amino Transferase 44 U/L (5-37); Bilirubin Total 0.4 mg/dL (0.0-1.0); Blood Urea Nitrogen 10 mg/dL (9-16); Calcium 9.2 mg/dL (8.4-10.2); Carbon Dioxide 26 mmol/L (22-29); Chloride 106 mmol/L (96-108); Cholesterol 172 mg/dL (<200); Estimated Glomerular Filt Rate > 60; Glucose Fasting 120 mg/dL (60-99); HDL Cholesterol 34 mg/dL (>40); LDL Cholesterol Calculated 86 mg/dL (<100); Potassium 4.4 mmol/L (3.3-5.1); Sodium 142 mmol/L (135-145); Total Protein 7.2 g/dL (6.5-8.0); Triglycerides 260 mg/dL (<150)
[2024-07-30 16:02] LABS: TSH reflex Free T4 1.05 uIU/mL (0.32-4.0)
== END 2024-07-30 14:19 | disposition home or self-care (01) ==
LOC: HO.HMGCLDS 14:18
PROVIDERS: PCP Nurse Practitioner Family; Visit Provider Nurse Practitioner Family
DX: Z00.00 Encounter for general adult medical examination without abnormal findings (principal); Z13.6 Encounter for screening for cardiovascular disorders
CPT/HCPCS: 36415; 80053; 80061; 81003; 84443; 85025

== ENCOUNTER 2024-08-01 11:34 | Outpatient (AMB) | payer OTHER, SELFPAY ==
[2024-08-01 11:37] VITALS: BP 120/80; PULSE 80; O2SAT 95; BMI 54.0
--- NOTE | 2024-08-01 11:37 | A.OFFPC_ITS ---
Vital Signs 08/01/24 11:37 Height 5 ft 8 in Weight 355 lb BMI 54.0 BP 120/80 Blood Pressure Location Rt brachial Position Sitting Pulse 80 Pulse Source Pulse Oximeter Pulse Oximetry (%) 95 Oxygen Delivery Method Room Air Intake Visit Reasons: 6 months follow up Parts Room Assistant Required: No Accompanied by: Self / Same As Patient Allergies Sulfa (Sulfonamide Antibiotics) Allergy (Unknown, Verified 08/01/24 11:37) hives sulfamethoxazole [From BACTRIM] Allergy (Unknown, Verified 08/01/24 11:37) HIVES trimethoprim [From BACTRIM] Allergy (Unknown, Verified 08/01/24 11:37) HIVES SEASONAL ALLERGIES Allergy (Unknown, Uncoded 02/26/24 12:40) UNKNOWN Medication List - Last Reconciled 08/01/24 by ANNALISA Bland- albuterol sulfate 90 mcg/actuation 1 inh inhalation QID PRN 30 days cetirizine 10 mg PO DAILY electrolytes-dextrose packets PO melatonin 9 mg (3 x 3 mg) PO BEDTIME multivitamin 1 tab PO DAILY olanzapine 15 mg PO BEDTIME omega-3 acid ethyl esters 2 caps PO BID 30 days pantoprazole 20 mg PO DAILY Tobacco use date assessed: 08/01/24 Dental Screening Dental Screen Date: 08/01/24 Did you have a dental visit in the last 12 months?: Yes Did you have a dental problem in the last 6 months where you did not have access to dental care?: No Was dental information given to patient?: Patient has dentist HPI 6 months follow up HPI Details Chief Complaint Patient is following up for weight management and related health concerns. History of Present Illness The patient is a 29-year-old male presenting with concerns primarily related to obesity management and associated health conditions. He has a history of morbid obesity and is about to initiate a comprehensive weight management program. He is an active smoker, and the risks associated with smoking have been discussed due to their impact on his health. Notably, he has a documented history of fatty liver disease, correlating with elevated liver enzyme levels previously noted. Additionally, the patient deals with hypertriglyceridemia. He was originally prescribed omega-3 fatty acid ethyl esters, taking one capsule daily. He tolerates this well, and an increase to two capsules twice daily has been advised to enhance triglyceride control. Social History - The patient is an active smoker and duncan s been counseled on smoking cessation. - He is starting a structured weight man agement program aimed at managing obesity. Health Maintenance - Discussed the importance of weight man agement. - Emphasized smoking cessation as a cruc ial part of overall health. - Addressed dietary management through i ncreased dosage of omega-3 fatty acid ethyl esters for hypertriglyceridemia. Review of Systems - Cardiovascular: Reports smoking. - Gastrointestinal: Reports history of f atty liver with elevated liver enzymes. - Metabolic/Endocrine: Reports morbid ob esity and hypertriglyceridemia. Physical Exam General: Cooperative, healthy appearing, comfortable, no acute distress and well developed, morbidly obese Orientation: Patient oriented x3 Limitations: No limitations Head: Normal to inspection Ears: Hearing grossly normal bilaterally Nose: Normal external nose present Face and sinus: Normal facial exam Eyes: Appearance normal, both eyes and all related structures Neck: Normal visual inspection and Yes full ROM Respiratory: Lungs were fairly clear by lab Cardiovascular: Regular rate and rhythm. Normal S1 and S2 GI: +bs Skin: No rashes or lesions noted Neuro: Patient oriented x3 Extremities: Normal to inspection Results - Labs: Previous elevated liver enzymes indicating fatty liver disease. Hypertriglyceridemia documented. Plan The patient will commence a weight management program to address morbid obesity. The adjusted dosage of omega-3 fatty acid ethyl esters, now two capsules twice daily, will aim to control hypertriglyceridemia, particularly in the context of current tolerance. Due to the patient?s history of fatty liver and elevated liver enzymes, we need to continue monitoring liver function as part of ongoing care. The dangers of smoking have been communicated effectively, stressing cessation. Follow-up appointments are vital to ensure compliance and evaluate the treatment?s efficacy. Discussion Notes I discussed the importance of initiating a weight management program with the patient, highlighting the necessity due to his morbid obesity and existing fatty liver disease. For his elevated triglyceride levels, we deliberated about increasing his current regimen of omega-3 fatty acid ethyl esters. Risks and benefits associated with dosage adjustments were reviewed, affirming adequate tolerance thus far. The patient was informed of the critical necessity of smoking cessation. This conversation included potential health benefits and available support resources to aid in quitting smoking. Follow-up visits were proposed to monitor progress in these areas. Patient Instructions - Begin weight management program as addi eduled. - Increase omega-3 ethyl esters to two c apsules twice daily as discussed. - Focus on smoking cessation; consider s upport resources to aid in quitting. - Monitor and report any changes in symp toms or reactions to new medication dosage. - Attend follow-up appointments to reass ess weight management and liver health. [facility] Medical History Obstructive sleep apnea hypopnea, mild Hidradenitis suppurativa of left axilla Fatty liver Asthma Schizoaffective disorder Surgical History No pertinent past surgical history Family History Father No problems noted. Mother No problems noted. Sister No problems noted. Maternal Uncle Substance use disorder Family/Other Substance use disorder Social History Household Members: Family Housing: House Do you presently have visiting nurse or other home services: No Alcohol intake: current Alcohol intake frequency: holidays/special occasions only Patient Tobacco Use Status: Former Tobacco user Tobacco use type: Cigarette Cigarettes Per Day: 15 e-Cigarette/Vaping Use: Never Used Second Hand Smoke Exposure: No Substance Use Type: Marijuana service: No Sexual orientation: Straight/Heterosexual Cognitive needs: No Hearing needs: No Vision needs: No Questionnaire PHQ-9 Over the last 2 weeks, how often have you been bothered by any of the following problems? 1. Little interest or pleasure in doing things: not at all 2. Feeling down, depressed, or hopeless: not at all 3. Trouble falling or staying asleep, or sleeping too much: not at all 4. Feeling tired or having little energy: not at all 5. Poor appetite or overeating: more than half the days 6. Feeling bad about yourself - or that you are a failure or have let yourself or your family down: not at all 7. Trouble concentrating on things, such as reading the newspaper or watching television: not at all 8. Moving or speaking so slowly that other people could have noticed. Or the opposite - being so fidgety or restless that you have been moving around a lot more than usual: not at all 9. Thoughts that you would be better off or of hurting yourself in some way: not at all Total score: 2 Depression Screening Interpretation: Negative Depression Screening Done: Yes 51110 - PHQ-9 Billing: Yes Source: Developed by Drs. Omra Lucero, Rubina Melara, Nicola Suh and colleagues, with an educational conrad from [employer]. Thrive Questionnaire Date Thrive assessed: 08/01/24 I am a: Patient What is your living situation today?: I have a place to live, but I am worried about losing it in the future Within the past 12 months, did the food you bought not last and you didn't have the money to get more?: I choose not to answer this question Within the past 12 months, did you worry whether your food would run out before you got money to buy more?: I choose not to answer this question Do you have trouble paying for medicines?: No Do you have trouble getting transportation to medical appointments?: No Do you have trouble paying your heating and electricity bill?: No Do you have trouble taking care of your child, family member or friend?: No Do you have trouble with day-to-day activities such as bathing, preparing meals, shopping, managing finances, etc.?: No Are you currently unemployed and looking for a job?: No Are you interested in more education?: Yes Please select the resources that you would like help with: None Currently or been in a relationship where the following occur: No concerns reported THRIVE Score: 1 AUDIT C Alcohol Use Questionnaire (AUDIT-C) 1. How often do you have a drink containing alcohol?: Never 3. How often do you have six or more drinks on one occasion?: Never Total Score: 0 Score Reviewed/Action Taken: Yes ALEXX-7 AMB Questionnaire ALEXX-7 Date ALEXX - 7 assessed: 08/01/24 Feeling nervous, anxious, or on edge: 0 = Not at all Not being able to stop or control worryin = Not at all Worrying too much about different things: 0 = Not at all Trouble relaxin = Not at all Being so restless that it is hard to sit still: 0 = Not at all Becoming easily annoyed or irritable: 1 = Several days Feeling afraid as if something awful might happen: 0 = Not at all Total ALEXX-7 score (0-4 normal; 5-9 mild; 10-14 moderate; 15-21 severe): 1 Source: Developed by Drs. Omar Lucero, Rubina Melara, Nicola Suh and colleagues, with an educational conrad from [employer]. ALEXX-7 Assessment Billing ALEXX-7 Assessment Tool: ALEXX-7 Assessment 19712 Physical exam (Primary Care) Vital Signs: Last Vital Signs Pulse 80 08/01/24 11:37 BP 120/80 08/01/24 11:37 Pulse Ox 95 08/01/24 11:37 Oxygen Delivery Method Room Air 08/01/24 11:37 BMI result Body Mass Index 54.0 Tobacco/Smoking Status: Tobacco use Status Tobacco use date assessed 08/01/24 08/01/24 11:43 Patient Tobacco Use Status Former Tobacco user 08/01/24 11:43 Tobacco use type Cigarette 08/01/24 11:43 e-Cigarette/Vaping Use Never Used 08/01/24 11:43 PHQ-9: PHQ-9 Score PHQ-9: Total score 2 08/01/24 11:43 Depression Screening Interpretation: Negative Thrive Assessment: Date of Thrive Assessment Date Thrive assessed 08/01/24 08/01/24 11:43 Currently or been in a relationship where the following occur: No concerns reported Coding Level of Care Code Est Pt Level 3 (96313) Diagnoses Dyslipidemia E78.5 Obesity E66.9 Additional Codes ALEXX-7 Assessment Billing - ALEXX-7 Assessment Tool: ALEXX-7 Assessment 34884 ([id number]) PHQ-9 - 97982 - PHQ-9 Billing: Yes ([id number]) Assessment & Plan Assessment & Plan (1) Dyslipidemia: Code(s): E78.5 - Hyperlipidemia, unspecified Category: Medical (2) Obesity: Code(s): E66.9 - Obesity, unspecified Category: Medical Plan .
--- OUTSIDE RECORDS SUMMARY | 2024-08-01 12:24 | XMS_ITS | Encounter Summary ---
Author Organization [facility] Address [address] [place] [address] Phone Care Team Providers Care Marketing Regional Consultant Name Role Phone Kerry Raines MD Primary Care Provider Encounter Details Date Type Department Care Team (Late st Contact Info) Description 11/06/2016 Conversion Encounter [facility] [place] [address] [place] [address] Social History Tobacco Use Types Packs/Day Years [...] on filedocumented in this encounter Care Teams Marketing Regional Consultant Relationship Specialty Start Date End Date Kerry Raines MD [address] [place] [address] PCP - General 10/31/16 06/30/22 documented as of this encounter
--- OUTSIDE RECORDS SUMMARY | 2024-08-01 12:24 | XMS_ITS | Clinical Summary ---
Author Organization [facility] Address [address] [place] [address] Phone Care Team Providers Care Physician Industrial Name Role Phone Unavailable Primary Care Provider [...] of *Thrombophilia, No family history of *Sudden /GA under 55, Family history of Hypertension, No [...]
== END 2024-08-01 12:03 | disposition home or self-care (01) ==
LOC: HO.HMCC 11:35
PROVIDERS: PCP Nurse Practitioner Family; Visit Provider Nurse Practitioner Family
DX: E78.5 Hyperlipidemia, unspecified (principal); E66.9 Obesity, unspecified; Z68.43 Body mass index [BMI] 50.0-59.9, adult

== ENCOUNTER → 2024-08-01 11:34 | Outpatient (BNVA) | payer OTHER, SELFPAY | PROVIDERS: PCP Nurse Practitioner Family; Visit Provider Nurse Practitioner Family | DX: E66.9 Obesity, unspecified (principal); E78.5 Hyperlipidemia, unspecified; Z87.891 Personal history of nicotine dependence; Z68.43 Body mass index [BMI] 50.0-59.9, adult | CPT/HCPCS: 96127; 99212 ==

== ENCOUNTER 2024-08-12 08:34 | Outpatient (AMB) | payer OTHER, SELFPAY ==
--- OUTSIDE RECORDS SUMMARY | 2024-08-12 08:44 | XMS_ITS | Encounter Summary ---
Author Organization [facility] Address [address] [place] [id number] Phone Care Team Providers Care Data Warehouse Architect Name Role Phone Kerry Raines MD Primary Care Provider Encounter Details Date Type Department Care Team (Late st Contact Info) Description 11/06/2016 Conversion Encounter [facility] [place] [address] [place] [address] Social History Tobacco Use Types Packs/Day Years [...] on filedocumented in this encounter Care Teams Data Warehouse Architect Relationship Specialty Start Date End Date Kerry Raines MD [address] [place] [address] PCP - General 10/31/16 06/30/22 documented as of this encounter
--- NOTE | 2024-08-12 12:31 | MHC.OFFVISWM ---
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 [facility] Allergies Sulfa (Sulfonamide Antibiotics) Allergy (Unknown, Verified 08/12/24 12:32) hives sulfamethoxazole [From BACTRIM] Allergy (Unknown, Verified 08/12/24 12:32) HIVES trimethoprim [From BACTRIM] Allergy (Unknown, Verified 08/12/24 12:32) HIVES SEASONAL ALLERGIES Allergy (Unknown, Uncoded 08/12/24 12:32) UNKNOWN Medication List - Last Reconciled 08/12/24 by David Castillo MD albuterol sulfate 90 mcg/actuation 1 inh inhalation QID PRN 30 days betamethasone dipropionate 0.05% 1 appl topical BID cetirizine 10 mg PO DAILY clindamycin phosphate 1% topical electrolytes-dextrose packets PO melatonin 9 mg (3 x 3 mg) PO BEDTIME multivitamin 1 tab PO DAILY olanzapine 15 mg PO BEDTIME omega-3 acid ethyl esters 2 caps PO BID 30 days pantoprazole 20 mg PO DAILY HPI HPI TV WET PROCESS ASSISTANT [facility] M[facility]: Details: Start time: 12.24pm, End time: 12.54pm ?I spent 25 minutes speaking with the patient on the phone plus an additional 5 minutes reviewing and updating records for a total of 30 minutes HPI Comments Details: Previous weight loss efforts: (2019: lost 100lbs with Keto diet, fasting), exercise Wakes up: 11am, Sleeps: midnight Breakfast: skips Lunch: skips Dinner: 6pm (rice, beans, chicken) Snacks: none Exercise: none Beverages: Coffee/tea: none, soda: none, juice: none, ETOH: none PFSH Medical History Obstructive sleep apnea hypopnea, mild Hidradenitis suppurativa of left axilla Fatty liver Asthma Schizoaffective disorder Surgical History (Updated 08/02/24 @ 13:43 by Angella Silverman CMA) History of wisdom tooth extraction, class I edentulism No pertinent past surgical history Family History Father No problems noted. Mother No problems noted. Sister No problems noted. Maternal Uncle Substance use disorder Family/Other Substance use disorder Social History Household Members: Family Housing: House Do you presently have visiting nurse or other home services: No Alcohol intake: current Alcohol intake frequency: holidays/special occasions only Patient Tobacco Use Status: Former Tobacco user Tobacco use type: Cigarette Cigarettes Per Day: 15 e-Cigarette/Vaping Use: Never Used Second Hand Smoke Exposure: No Substance Use Type: Marijuana service: No Sexual orientation: Straight/Heterosexual Cognitive needs: No Hearing needs: No Vision needs: No Telehealth Telehealth Telehealth Platform: Telephone Location of provider rendering services: practice address Location of patient: address on file Patient Identification confirmed using: Name, : Yes Telehealth method: voice only Patient verbally consented to treatment: Yes Patient verbally consented to billing insurance company: Yes Patient informed of any privacy concerns related to visit: Yes Minutes spent on Phone/Video with Pt.: 30 Assessment & Plan Assessment & Plan (1) Obesity, morbid, BMI 50 or higher: Code(s): E66.01 - Morbid (severe) obesity due to excess calories Category: Medical Plan: 1. We discussed in detail the available therapeutic options: 1) our lifestyle intervention program that has an average weight loss of 10% in 3 months.? 2) Weight loss medications. His insurance will not cover them unless he has diabetes. We also discussed that you can self pay for the first 3 months and the cost is $399 for the first month and $499 for any other month thereafter. 3) We also discussed about the lap sleeve gastrectomy. I emphasized the importance of close follow-up, adherence to instructions and good communication. The surgery does not replace the need to change your lifestlyle which is the cause of the obesity problem. The surgery provides the motivation to try again to change your lifestyle, it reduces the appetite and make the transition to a better lifestyle easier and doubles the amount of weight you would lose compared to doing the lifestyle change without the surgery. You will need to be on a liquid diet with protein shakes for 2 weeks before surgery to maximize weight loss and boost your nutritional status to recover better from surgery and also for the first two weeks after surgery to let the stomach heal before we introduce other foods. After the first 2 weeks we will introduce protein bars and soft foods like scrambled eggs, cottage cheese and yogurt and after the 6th week will introduce meat, fish and cooked vegetables in small amounts. Over time you should be able to eat everything in small amounts. Side effects like nausea, vomiting, heartburn or abdominal pain are not common in the practice unless you are not following in the practice. This operation requires lifetime commitment to following in our practice and communication with me. You will much less weight and experience side effects if you don?t communicate or not following in the practice.The patient prefers to try our lifestyle program. 2. Please buy a body composition scale and let me know when you have it 3. Please buy the [employer] plant-based protein shakes and bars. I will give you a meal plan once you get them. 4. Please consider purchasing a stationary bike at home
[2024-08-12 12:53] VITALS: BMI 53.4
== END 2024-08-12 12:55 | disposition home or self-care (01) ==
LOC: HO.HBS 08:34
PROVIDERS: PCP Nurse Practitioner Family; Visit Provider Surgery
DX: E66.01 Morbid (severe) obesity due to excess calories (principal); Z68.43 Body mass index [BMI] 50.0-59.9, adult
CPT/HCPCS: 99203

== ENCOUNTER 2024-08-25 15:30 | Outpatient (REF) | payer OTHER, SELFPAY ==
--- NOTE | 2024-08-25 15:39 | PFT_ITS ---
Flows: FEV1: 115 % of predicted at 4.16 L FVC: 126 % of predicted at 5.44 L FEV1/FVC: 77 % Bronchodilator response: Present in small to medium airways only Volumes: Total lung capacity: 100 % of predicted at 6.61 L Residual volume: 82 % of predicted at 1.16 L Slow vital capacity: 105 % of predicted at 5.45 L Expiratory reserve volume: 34 % of predicted at 0.45 L Diffusion capacity: Normal Impression: No obstructive or restrictive ventilatory defect. Bronchodilator response is present in small to medium airways only. Decreased expiratory reserve volume suggests extrathoracic restriction likely secondary to abdominal obesity. MTDD
[2024-08-25 16:17] VITALS: PULSE 87; O2SAT 97
--- OUTSIDE RECORDS SUMMARY | 2024-08-25 17:59 | XMS_ITS | Patient Health Record ---
Author Organization [facility] Address [address] [place] [address] Care Team Providers Care Molding Press Operator Name Role Phone Dhruv Perrin Primary Care Provider Unaandreina Indy Baeza Unavailable [phone] Allergies Allergen (clinical drug ingredient) Drug/Non Drug Allergy documented on EMR Reaction Allergy Type Onset Date Status sulfamethoxazole / trimethoprim Bactrim Hives Drug Allergy Active Seasonale Unknown Drug Allergy Active Reason For Referral No Information Medications Medication SIG (Take, Route, Frequency, Duration) Notes Start Date End Date Status Vitamin B Complex - as directed Orally Unknown CBD Haines Unknown Vitamin D Unknown Custom Orthotics as directed 10/25/2019 Active LORazepam 0.5 MG Orally PRN Act sabiha ASO Ankle/Foot Stablizing AFO As directed Wear Daily for as needed 10/25/2019 Active Albuterol Sulfate HFA 108 (90 Base) MCG/ACT 1 puff as needed Inhalation every 4 hrs Unknown Invega 6 MG 1 tablet in the morn ing Orally Once a day for 30 day(s) Unknown Social History Tobacco Use: Social History Observation Description Date Details (start date - stop date) Current Smoker NA - NA Tobacco Use/Smoking Question Answer Notes Are you a: current smoker How often do you smoke cigarettes? every day How many cigarettes a day do you smoke? 11-20 How soon after you wake up do you smoke your fir st cigarette? 6-30 minutes Alcohol Screen Question Answer Notes Did you have a drink containing alcohol in the p ast year? Yes Points 0 Interpretation Negative Tobacco use other than smoking: Question Answer Notes Are you an other tobacco user? No Plan Of Treatment Pending Test Test Name Order Date X ray : Foot, left 3V 10/25/2019 X ray : Foot, right 3V 10/25/2019 Insurance Providers Payer Name Payer Address Payer Phone Subscriber Number Group Number Insured Name Patient Relationship to Insured Coverage Start Date Coverage End Date [facility] S[employer] Claims [address] [place] [id number] Dhruv Caldwell Self - patient is the insured Medical (General) History Medical History History ICD Code Psychiatric disorder asthma Knee Pain Bunion Anxiety Back,Hip,and Knee pain Broken bones Depression Surgical History Surgery Date(Month/Year) wisdom teeth extraction 2015 Hospitalization History Reason Date(Month/Year) [facility] [place] 08/09
== END 2024-08-25 15:31 | disposition home or self-care (01) ==
LOC: HO.RESP 15:30
PROVIDERS: PCP Nurse Practitioner Family; Visit Provider Physician Assistant Medical
DX: J45.909 Unspecified asthma, uncomplicated (principal); G47.33 Obstructive sleep apnea (adult) (pediatric)
CPT/HCPCS: 94010; 94640; 94727; 94729

== ENCOUNTER → 2024-08-25 15:39 | Outpatient (BNV) | payer OTHER, SELFPAY | PROVIDERS: PCP Nurse Practitioner Family; Visit Provider Internal Medicine Pulmonary Disease | DX: J45.909 Unspecified asthma, uncomplicated (principal) | CPT/HCPCS: 94060; 94727; 94729 ==

== ENCOUNTER 2024-10-24 14:27 | Outpatient (AMB) | payer OTHER, SELFPAY ==
--- OUTSIDE RECORDS SUMMARY | 2024-10-24 14:31 | XMS_ITS | Patient Health Record ---
Author Organization [facility] Address [address] [place] [address] Care Team Providers Care Manager Welding Name Role Phone Dhruv Perrin Primary Care Provider Unaandreina Indy Baeza Unavailable [phone] Allergies Allergen (clinical drug ingredient) Drug/Non Drug Allergy documented on EMR Reaction Allergy Type Onset Date Status sulfamethoxazole / trimethoprim Bactrim Hives Drug Allergy Active Seasonale Unknown Drug Allergy Active Reason For Referral No Information Medications Medication SIG (Take, Route, Frequency, Duration) Notes Start Date End Date Status Vitamin B Complex - as directed Orally Unknown CBD Peetz Unknown Vitamin D Unknown Custom Orthotics as directed 10/25/2019 Active LORazepam 0.5 MG Orally PRN Act sabiha ASO Ankle/Foot Stablizing AFO As directed Wear Daily; Duration: as needed 10/25/2019 Active Albuterol Sulfate HFA 108 (90 Base) MCG/ACT 1 puff as needed Inhalation every 4 hrs Unknown Invega 6 MG 1 tablet in the morn ing Orally Once a day; Duration: 30 day(s) Unknown Social History Tobacco Use: [...] Insured Coverage Start Date Coverage End Date [facility] [employer] Claims [address] [place] [id number] Dhruv Caldwell Self - patient is the insured Medical (General) History Medical History History ICD Code Psychiatric disorder asthma Knee Pain Bunion Anxiety Back,Hip,and Knee pain Broken bones Depression Surgical History Surgery Date(Month/Year) wisdom teeth extraction 2015 Hospitalization History Reason Date(Month/[place] [facility] [place]
--- OUTSIDE RECORDS SUMMARY | 2024-10-24 14:31 | XMS_ITS | Encounter Summary ---
Author Organization [facility] Address [address] [place] [address] Phone Care Team Providers Care Baby Nurse Name Role Phone Kerry Raines MD Primary Care Provider Encounter Details Date Type Department Care Team (Late st Contact Info) Description 11/06/2016 Conversion Encounter [facility] [place] [address] [place] [address] Social History Tobacco Use Types Packs/Day Years [...] on filedocumented in this encounter Care Teams Baby Nurse Relationship Specialty Start Date End Date Kerry Raines MD [address] [place] [address] PCP - General 10/31/16 06/30/22 documented as of this encounter
[2024-10-24 14:34] VITALS: BP 126/78; PULSE 83; O2SAT 96; BMI 51.6
--- NOTE | 2024-10-24 14:34 | MHC.OFFVIS ---
Vital Signs 10/24/24 14:34 Height 5 ft 8 in Weight 339 lb 2 oz BMI 51.6 BP 126/78 Blood Pressure Location Lt brachial Position Sitting Pulse 83 Pulse Source Pulse Oximeter Pulse Oximetry (%) 96 Oxygen Delivery Method Room Air Intake Visit Reasons: follow up cpap Intake Note: Patient presents follow up TATUM. PFT in chart. WM seen 08/12. Per Ins needs in labs PSG. Compliance in Chart 04/2024-07/2024(89/90 days, >=4hrs-96%, average usage-10hr 6 min, Med pressure- 17.6, Med leaks-7.8, AHI0.6) Accompanied by: Self / Same As Patient Allergies Sulfa (Sulfonamide Antibiotics) Allergy (Unknown, Verified 10/24/24 14:37) hives sulfamethoxazole (From BACTRIM) Allergy (Unknown, Verified 10/24/24 14:37) HIVES trimethoprim (From BACTRIM) Allergy (Unknown, Verified 10/24/24 14:37) HIVES SEASONAL ALLERGIES Allergy (Unknown, Uncoded 08/12/24 12:32) UNKNOWN HPI Comments Details: 29 y/o male with anxiety and mild Obstructive Sleep Apnea presents for a follow up visit. TATUM Compliance Report 04/2024- 07/2024 Avg use is 89/90 days and >4hours is 96%, avg daily use is 10hr 6 min Med press- 17.6, Med leaks-7.8, AHI 0.6/hr PFT reviewed with patient today, he is using inhaler as needed. His BMI is elevated 51. He goes to sleep at midnight and wakes up at 11am and has one bathroom break. He continues to worry if the sleep machine has parts that are degrading into his water and he is breathing them into his lungs as he ruminates due to anxiety. He has asthma, and can't get enough air into his lungs if he is not using the cpap at night. He is compliant with use, inspite of having dry mouth. He adjusts the temperature settings and pressures yet does not know if they are accurate for him or what he is doing. He feels more comfortable with the use of his CPAP and it has helped to improve his night time sleep regiment. He feels less fatigue and is motivated to lose weight, he is seeing weight management and learning to prep his meals. He is a smoker of [employer] , nicotine with MJ, daily 2-3 joints daily, he has tried smoking cessation uses the gum and has little success, then gets discouraged. He lost 8lbs in July 2024 and then gained it all back. His SD card is not getting any data. July 2024 PSG showed insufficient data due to 78min of sleep, will re-send for PSG per insurance request and f/u for compliance [facility] Medical History Obstructive sleep apnea hypopnea, mild Hidradenitis suppurativa of left axilla Fatty liver Asthma Schizoaffective disorder Surgical History History of wisdom tooth extraction, class I edentulism No pertinent past surgical history Family History Father No problems noted. Mother No problems noted. Sister No problems noted. Maternal Uncle Substance use disorder Family/Other Substance use disorder Social History Household Members: Family Housing: House Do you presently have visiting nurse or other home services: No Alcohol intake: current Alcohol intake frequency: holidays/special occasions only Patient Tobacco Use Status: Former Tobacco user Tobacco use type: Cigarette Cigarettes Per Day: 15 e-Cigarette/Vaping Use: Never Used Second Hand Smoke Exposure: No Substance Use Type: Marijuana service: No Sexual orientation: Straight/Heterosexual Cognitive needs: No Hearing needs: No Vision needs: No Physical Exam Vital Signs: Last Vital Signs Pulse 83 10/24/24 14:34 BP 126/78 10/24/24 14:34 Pulse Ox 96 10/24/24 14:34 Oxygen Delivery Method Room Air 10/24/24 14:34 BMI result Body Mass Index 51.6 Const General: cooperative, comfortable and no acute distress Nutritional Appearance: overweight (BMI is 51.6) Orientation/consciousness: patient oriented x3 Eyes Pupils: Equal, round and reactive pupils present Neck Neck: Yes full ROM Resp Effort & Inspection: normal respiratory effort and able to speak in complete sentences Neuro General: patient oriented x3 and moves all extremities Cranial nerves: Yes Facial sensation intact/muscles of mastication intact, Yes Equal, round and reactive pupils present, Yes Normal accommodation reflex present, Yes Normal facial strength present, Yes Midline tongue present, Yes Ability to bilaterally rotate head present and Yes Ability to bilaterally elevate shoulders present Cognition (Neuro): normal cognition Gait exam (Neuro): Antalgic gait present Motor exam (neuro): 5/5 motor strength present throughout and Normal motor muscle tone present throughout Psych Appearance: grossly normal Mental Status: mental status grossly normal Affect: Blunted affect present Thought process: Normal thought process present Thought content: Normal thought content present Results Reviewed Results Reviewed: TATUM Compliance Report 04/2024- 07/2024 Avg use is 89/90 days and >4hours is 96%, avg daily use is 10hr 6 min Med press- 17.6, Med leaks-7.8, AHI 0.6/hr Labs reviewed with patient Assessment & Plan Assessment & Plan (1) Obstructive sleep apnea hypopnea, mild: Code(s): G47.33 - Obstructive sleep apnea (adult) (pediatric) Category: Medical (2) Daytime sleepiness: Code(s): R40.0 - Somnolence Category: Medical (3) Asthma: Code(s): J45.909 - Unspecified asthma, uncomplicated Category: Medical Qualifiers: Asthma severity: unspecified severity Asthma persistence: unspecified Asthma complication type: unspecified Qualified Code(s): J45.909 - Unspecified asthma, uncomplicated Plan TATUM compliance is emphasized, will get a new SD card send [facility] the data, then get new supplies needed, since his mask is torn and pressures needed adjustment. Asthma f/u with Pulmonology for PFTS BMI is 51.6 is following up with Weight management, meal prepping and walking as tolerable, he is motivated to lose weight. Labs for chronic fatigue reviewed with patient Orders: Orders RT PSG in-lab sleep study Today G47.33 - Obstructive sleep apnea (adult) (pediatric) Medications: Refilled melatonin 9 mg (3 x 3 mg) PO BEDTIME 90 tabs 0RF Patient Instructions: Sleep Hygiene provided: set a scheduled bedtime and wake time to help regulate the circadian rhythm and balance the release of pituitary hormones. Sleep in a dark room, temperatures below 68 degrees, and no devices n bed. Limit caffeinated products 6 hours prior to bed, and limit fluids 2-4 hours prior to bed. Gentle night yoga, diffusing essential oils, and playing soft music can be relaxing. Coding Level of Care Code Est Pt Level 4 (20226) Diagnoses Obstructive sleep apnea hypopnea, mild G47.33 Daytime sleepiness R40.0 Asthma, unspecified asthma severity, unspecified whether complicated, unspecified whether persistent J45.909 Asthma severity: unspecified severity Asthma persistence: unspecified Asthma complication type: unspecified Time Spent (min) 30
== END 2024-10-24 15:23 | disposition home or self-care (01) ==
LOC: HO.HSMS 14:27
PROVIDERS: PCP Nurse Practitioner Family; Visit Provider Physician Assistant Medical
DX: G47.33 Obstructive sleep apnea (adult) (pediatric) (principal); R40.0 Somnolence; J45.909 Unspecified asthma, uncomplicated
CPT/HCPCS: 99214

== ENCOUNTER → 2024-10-24 14:27 | Outpatient (BNVA) | payer OTHER, SELFPAY | PROVIDERS: PCP Nurse Practitioner Family; Visit Provider Physician Assistant Medical | DX: G47.33 Obstructive sleep apnea (adult) (pediatric) (principal); Z99.89 Dependence on other enabling machines and devices; R40.0 Somnolence; J45.909 Unspecified asthma, uncomplicated | CPT/HCPCS: 99212 ==

== ENCOUNTER → 2024-12-09 19:30 | Outpatient (REF) | payer OTHER, SELFPAY ==
--- OUTSIDE RECORDS SUMMARY | 2024-12-09 21:42 | XMS_ITS | Clinical Summary ---
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
--- OUTSIDE RECORDS SUMMARY | 2024-12-09 21:42 | XMS_ITS | Encounter Summary ---
Author Organization [facility] Address [address] [place] [phone] Phone Care Team Providers Care Film Crew Member Name Role Phone Kerry Raines MD Primary Care Provider Encounter Details Date Type Department Care Team (Late st Contact Info) Description 11/06/2016 Conversion Encounter [facility] [place] [address] [place] [address] Social History Tobacco Use Types Packs/Day Years [...] on filedocumented in this encounter Care Teams Film Crew Member Relationship Specialty Start Date End Date Kerry Raines MD [address] [place] [address] PCP - General 10/31/16 06/30/22 documented as of this encounter
== END ==
LOC: HO.SL 19:30
PROVIDERS: PCP Nurse Practitioner Family; Visit Provider Physician Assistant Medical
DX: G47.33 Obstructive sleep apnea (adult) (pediatric) (principal)
CPT/HCPCS: 95810

== ENCOUNTER → 2024-12-09 21:38 | Outpatient (BNV) | payer OTHER, SELFPAY | PROVIDERS: PCP Nurse Practitioner Family; Visit Provider Psychiatry & Neurology Neurology | DX: R40.0 Somnolence (principal); G47.33 Obstructive sleep apnea (adult) (pediatric) | CPT/HCPCS: 95810 ==

== ENCOUNTER 2025-01-23 14:31 | Outpatient (AMB) | payer OTHER, SELFPAY ==
--- NOTE | 2025-01-23 14:39 | A.OFFVIS_ITS ---
Vital Signs 01/23/25 14:46 Height 5 ft 8 in Weight 347 lb 4 oz BMI 52.8 BP 122/82 Blood Pressure Location Rt brachial Position Sitting Pulse 98 Pulse Source Pulse Oximeter Pulse Oximetry (%) 95 Oxygen Delivery Method Room Air Intake Visit Reasons: 3 mnts f/u appt Intake Note: Patient presents follow up TATUM. No Compliance. Can not gewt supplies for machine. PSG done 11/2024 Accompanied by: Self / Same As Patient Allergies Sulfa (Sulfonamide Antibiotics) Allergy (Unknown, Verified 01/23/25 14:49) hives sulfamethoxazole (From BACTRIM) Allergy (Unknown, Verified 01/23/25 14:49) HIVES trimethoprim (From BACTRIM) Allergy (Unknown, Verified 01/23/25 14:49) HIVES SEASONAL ALLERGIES Allergy (Unknown, Uncoded 08/12/24 12:32) UNKNOWN HPI Comments Details: 29 y/o male with anxiety and sleep apnea presents for a follow up visit. He attempted to complete his PSG once again and was unable due to anxiety. This time we can try with ambien 5mg -10mg for one night to see if he is able to sleep through the night in order to complete the PSG. He continues to be noncompliant due to the Sim card being in activated. He recently bought his own mask and started using his CPAP machine as he sleeps more restfully when he uses his CPAP machine. His BMI is elevated 52.8 and is being followed by weight management. He goes to sleep at midnight and wakes up at 11am and has one bathroom break. He continues to worry if the sleep machine has parts that are degrading into his water and he is breathing them into his lungs. He has asthma and trouble breathing at night. He is motivated to lose weight. He is a smoker of [employer] , nicotine with MJ, daily. He is afraid of having TD due to olanzapine use. and notices his l. eye, r. hand and l. side corner of mouth and bottom lip randomly twitches through the day. He denies tongue thrusting, chewing grimacing, rapid blinking, or lip smacking. He denies ticks, rocking, swaying and repetitive movements. He feels more himself on olanzapine and would like to continue on this medication as he has good efficacy with use, and will discuss with his Psychiatrist. July 2024 PSG showed insufficient sleep data with 78min of sleep recorded. Will re-send for PSG per insurance request and so he can start to get his supplies. Nov 2024 PSG attempted again and he was unable to fall sleep. He has a fear of taking sleep aides due a prior h/o adverse s/e to trazadone. We discussed trying ambien 5-10mg po, solely for this PSG and he is willing to try once again. [facility] Medical History Obstructive sleep apnea hypopnea, mild Hidradenitis suppurativa of left axilla Fatty liver Asthma Schizoaffective disorder Surgical History History of wisdom tooth extraction, class I edentulism No pertinent past surgical history Family History Father No problems noted. Mother No problems noted. Sister No problems noted. Maternal Uncle Substance use disorder Family/Other Substance use disorder Social History Household Members: Family Housing: House Do you presently have visiting nurse or other home services: No Alcohol intake: current Alcohol intake frequency: holidays/special occasions only Patient Tobacco Use Status: Former Tobacco user Tobacco use type: Cigarette Cigarettes Per Day: 15 e-Cigarette/Vaping Use: Never Used Second Hand Smoke Exposure: No Substance Use Type: Marijuana service: No Sexual orientation: Straight/Heterosexual Cognitive needs: No Hearing needs: No Vision needs: No Physical Exam Vital Signs: Last Vital Signs Pulse 98 01/23/25 14:46 BP 122/82 01/23/25 14:46 Pulse Ox 95 01/23/25 14:46 Oxygen Delivery Method Room Air 01/23/25 14:46 BMI result Body Mass Index 52.8 Const General: cooperative, comfortable and no acute distress Nutritional Appearance: overweight (BMI is 51.6) Orientation/consciousness: patient oriented x3 Eyes Pupils: Equal, round and reactive pupils present Neck Neck: Yes full ROM Resp Effort & Inspection: normal respiratory effort and able to speak in complete sentences Neuro General: patient oriented x3 and moves all extremities Cranial nerves: Yes Facial sensation intact/muscles of mastication intact, Yes Equal, round and reactive pupils present, Yes Normal accommodation reflex present, Yes Normal facial strength present, Yes Midline tongue present, Yes Ability to bilaterally rotate head present and Yes Ability to bilaterally elevate shoulders present Cognition (Neuro): normal cognition Gait exam (Neuro): Antalgic gait present Motor exam (neuro): 5/5 motor strength present throughout and Normal motor muscle tone present throughout Psych Appearance: grossly normal Mental Status: mental status grossly normal Affect: Anxious affect present Thought process: Other thought process findings present Thought content: Phobia(s) present Insight: Fair insight present (Psych) Judgement: Fair judgement present (Psych) Results Reviewed Results Reviewed: PSG July 2024 PSG Nov 2024 Assessment & Plan Assessment & Plan (1) Insomnia: Code(s): G47.00 - Insomnia, unspecified Category: Medical Qualifiers: Insomnia type: primary Qualified Code(s): F51.01 - Primary insomnia (2) Obstructive sleep apnea hypopnea, mild: Code(s): G47.33 - Obstructive sleep apnea (adult) (pediatric) Category: Medical (3) Daytime sleepiness: Code(s): R40.0 - Somnolence Category: Medical (4) Asthma: Code(s): J45.909 - Unspecified asthma, uncomplicated Category: Medical Qualifiers: Asthma severity: unspecified severity Asthma persistence: unspecified Asthma complication type: unspecified Qualified Code(s): J45.909 - Unspecified asthma, uncomplicated (5) Insomnia disorder, with other sleep disorder, recurrent: Code(s): G47.00 - Insomnia, unspecified; G47.8 - Other sleep disorders Category: Medical (6) Fear of side effects of medication: Code(s): F40.298 - Other specified phobia Category: Medical Plan TATUM compliance reviewed with pt and he needs to complete his PSG in lab, as he purchased a face mask however his machine is old and SD card does not transmit data. Insomnia will try to repeat PSG in lab with ambien this time as pt continues to have fear of taking sleep aides will rx 5mg of ambien with 2- 5mg tablets to be used on the night of his sleep study. Asthma PFTs reviewed with pt. Smoking cessation is offered once again, with gum and nicotine patch. BMI is 52 and is following up with Weight management will continue with meal prepping and walking as tolerable, he is motivated to lose weight, however he recognizes the need to be disciplined . Labs for chronic fatigue reviewed with patient. Medications: New zolpidem (Ambien) take 1 5mg table on the evening of sleep study, if unable to fall asleep may take one additional tablet. 5 mg PO BEDTIME 2 tabs 0RF in lab psg MDD 10mg G47.00 - Insomnia, unspecified, G47.8 - Other sleep disorders Coding Level of Care Code Est Pt Level 4 (75101) Diagnoses Primary insomnia F51.01 Insomnia type: primary Obstructive sleep apnea hypopnea, mild G47.33 Daytime sleepiness R40.0 Asthma, unspecified asthma severity, unspecified whether complicated, unspecified whether persistent J45.909 Asthma severity: unspecified severity Asthma persistence: unspecified Asthma complication type: unspecified Insomnia disorder, with other sleep disorder, recurrent G47.00; G47.8 Fear of side effects of medication F40.298
[2025-01-23 14:46] VITALS: BP 122/82; PULSE 98; O2SAT 95; BMI 52.8
== END 2025-01-23 15:51 | disposition home or self-care (01) ==
LOC: HO.HSMS 14:33
PROVIDERS: PCP Nurse Practitioner Family; Visit Provider Physician Assistant Medical
DX: F51.01 Primary insomnia (principal); G47.33 Obstructive sleep apnea (adult) (pediatric); R40.0 Somnolence; J45.909 Unspecified asthma, uncomplicated; G47.00 Insomnia, unspecified; G47.8 Other sleep disorders; F40.298 Other specified phobia
CPT/HCPCS: 99214

== ENCOUNTER → 2025-01-23 14:31 | Outpatient (BNVA) | payer OTHER, SELFPAY | PROVIDERS: PCP Nurse Practitioner Family; Visit Provider Physician Assistant Medical | DX: F51.01 Primary insomnia (principal); G47.33 Obstructive sleep apnea (adult) (pediatric); R40.0 Somnolence; J45.909 Unspecified asthma, uncomplicated; F41.9 Anxiety disorder, unspecified; G47.00 Insomnia, unspecified; G47.8 Other sleep disorders; F40.298 Other specified phobia; Z68.43 Body mass index [BMI] 50.0-59.9, adult; Z91.198 Patient's noncompliance with other medical treatment and regimen for other reason | CPT/HCPCS: 99212 ==

== ENCOUNTER 2025-02-02 15:02 | Outpatient (AMB) | payer OTHER, SELFPAY ==
[2025-02-02 15:10] VITALS: BP 124/88; PULSE 86; O2SAT 97; BMI 54.3
--- NOTE | 2025-02-02 15:10 | MHC.PC.OV ---
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: No Accompanied by: Self / Same As Patient Allergies Sulfa (Sulfonamide Antibiotics) Allergy (Unknown, Verified 01/23/25 14:49) hives sulfamethoxazole (From BACTRIM) Allergy (Unknown, Verified 01/23/25 14:49) HIVES trimethoprim (From BACTRIM) Allergy (Unknown, Verified 01/23/25 14:49) HIVES SEASONAL ALLERGIES Allergy (Unknown, Uncoded 08/12/24 12:32) UNKNOWN Medication List - Last Reconciled 02/02/25 by ANNALISA Bland- albuterol sulfate 90 mcg/actuation 1 inh inhalation QID PRN 30 days betamethasone dipropionate 0.05% 1 appl topical BID cetirizine 10 mg PO DAILY clindamycin phosphate 1% topical electrolytes-dextrose packets PO melatonin 9 mg (3 x 3 mg) PO BEDTIME multivitamin 1 tab PO DAILY olanzapine 15 mg PO BEDTIME omega-3 acid ethyl esters 2 caps PO BID pantoprazole 20 mg PO DAILY zolpidem (Ambien) 5 mg PO BEDTIME MDD 10mg Tobacco use date assessed: 02/02/25 Dental Screening Dental Screen Date: 02/02/25 Did you have a dental visit in the last 12 months?: Yes Did you have a dental problem in the last 6 months where you did not have access to dental care?: No Was dental information given to patient?: Patient has dentist HPI PE HPI Details History of Present Illness The patient is a 29-year-old male presenting for a physical exam. The patient has a significant psychiatric history, including schizophrenia, for which he follows up with a psychiatrist and a therapist. He is actively gaining weight and attends a bariatric center for medical management. Bariatric surgery has been discussed, but he is not interested and prefers medical management. Health Maintenance - The patient follows up with a psychiatrist and a therapist for schizophrenia. - The patient attends a bariatric center for medical weight management. - The importance of continuing appointments at the bariatric center was emphasized. Social History - The patient is actively gaining weight. - He is engaged in medical management for his weight at a bariatric center. Review of Systems Physical Exam General: Cooperative, healthy appearing, comfortable, no acute distress and well developed, morbidly obese Orientation: Patient oriented x3 Limitations: No limitations Head: Normal to inspection Ears: Hearing grossly normal bilaterally Nose: Normal external nose present Face and sinus: Normal facial exam Eyes: Appearance normal, both eyes and all related structures Neck: Normal visual inspection and Yes full ROM Respiratory: Normal respiratory effort and able to speak in complete sentences. Clear to auscultation bilaterally Cardiovascular: Regular rate and rhythm. Normal S1 and S2 GI: Normal to inspection. Soft to palpation and nontender : testicles without masses/lesions and no hernias appreciated Skin: No rashes or lesions noted Neuro: Patient oriented x3 Extremities: Normal to inspection Results Plan 1. Schizophrenia The patient has a history of schizophrenia and follows up with both a psychiatrist and a therapist. Continue current management with his psychiatric care team. 2. Morbid Obesity The patient is actively gaining weight and is being followed at a bariatric center for medical management. While bariatric surgery was mentioned as an option, the patient is not interested at this time. The importance of continuing with his appointments for medical management was emphasized. 3. Annual Physical Exam The patient presented for a physical examination. Findings include morbid obesity, clear lungs, and normal S1/S2 heart sounds. Discussion Notes I expressed the importance and relevance of the patient continuing his appointments at the bariatric center for medical weight management. Encouraged him to have him labs drawn in the near future fasting Patient Instructions - Continue to see your psychiatrist and a therapist for your schizophrenia. - It is important to keep going to your appointments at the bariatric center for help with managing your weight. [facility] Medical History Obstructive sleep apnea hypopnea, mild Hidradenitis suppurativa of left axilla Fatty liver Asthma Schizoaffective disorder Surgical History History of wisdom tooth extraction, class I edentulism No pertinent past surgical history Family History Father No problems noted. Mother No problems noted. Sister No problems noted. Maternal Uncle Substance use disorder Family/Other Substance use disorder Social History (Reviewed 02/02/25 @ 15:16 by STONE Vasquez Household Members: Family Housing: House Do you presently have visiting nurse or other home services: No Alcohol intake: current Alcohol intake frequency: holidays/special occasions only Patient Tobacco Use Status: Former Tobacco user Tobacco use type: Cigarette Cigarettes Per Day: 15 e-Cigarette/Vaping Use: Never Used Second Hand Smoke Exposure: No Substance Use Type: Marijuana service: No Sexual orientation: Straight/Heterosexual Cognitive needs: No Hearing needs: No Vision needs: No Questionnaire PHQ-9 Over the last 2 weeks, how often have you been bothered by any of the following problems? 1. Little interest or pleasure in doing things: not at all 2. Feeling down, depressed, or hopeless: not at all 3. Trouble falling or staying asleep, or sleeping too much: not at all 4. Feeling tired or having little energy: not at all 5. Poor appetite or overeating: more than half the days 6. Feeling bad about yourself - or that you are a failure or have let yourself or your family down: not at all 7. Trouble concentrating on things, such as reading the newspaper or watching television: not at all 8. Moving or speaking so slowly that other people could have noticed. Or the opposite - being so fidgety or restless that you have been moving around a lot more than usual: not at all 9. Thoughts that you would be better off or of hurting yourself in some way: not at all Total score: 2 Depression Screening Interpretation: Negative Depression Screening Done: Yes 76958 - PHQ-9 Billing: Yes Source: Developed by Drs. Omar Lucero, Rubina Melara, Nicola Suh and colleagues, with an educational conrad from [employer]. Thrive Questionnaire Date Thrive assessed: 08/01/24 I am a: Patient What is your living situation today?: I have a place to live, but I am worried about losing it in the future Within the past 12 months, did the food you bought not last and you didn't have the money to get more?: I choose not to answer this question Within the past 12 months, did you worry whether your food would run out before you got money to buy more?: I choose not to answer this question Do you have trouble paying for medicines?: No Do you have trouble getting transportation to medical appointments?: No Do you have trouble paying your heating and electricity bill?: No Do you have trouble taking care of your child, family member or friend?: No Do you have trouble with day-to-day activities such as bathing, preparing meals, shopping, managing finances, etc.?: No Are you currently unemployed and looking for a job?: No Are you interested in more education?: Yes Please select the resources that you would like help with: None Currently or been in a relationship where the following occur: No concerns reported THRIVE Score: 1 ALEXX-7 AMB Questionnaire ALEXX-7 Date ALEXX - 7 assessed: 02/02/25 Feeling nervous, anxious, or on edge: 0 = Not at all Not being able to stop or control worryin = Not at all Worrying too much about different things: 0 = Not at all Trouble relaxin = Not at all Being so restless that it is hard to sit still: 0 = Not at all Becoming easily annoyed or irritable: 1 = Several days Feeling afraid as if something awful might happen: 0 = Not at all Total ALEXX-7 score (0-4 normal; 5-9 mild; 10-14 moderate; 15-21 severe): 1 Source: Developed by Drs. Omar Lucero, Rubina Melara, Nicola Suh and colleagues, with an educational cornad from [employer]. ALEXX-7 Assessment Billing ALEXX-7 Assessment Tool: ALEXX-7 Assessment 22643 Physical exam (Primary Care) Vital Signs: Last Vital Signs Pulse 86 02/02/25 15:10 BP 124/88 02/02/25 15:10 Pulse Ox 97 02/02/25 15:10 Oxygen Delivery Method Room Air 02/02/25 15:10 BMI result Body Mass Index 54.3 Tobacco/Smoking Status: Tobacco use Status Tobacco use date assessed 02/02/25 02/02/25 15:16 Patient Tobacco Use Status Former Tobacco user 02/02/25 15:16 Tobacco use type Cigarette 02/02/25 15:16 e-Cigarette/Vaping Use Never Used 02/02/25 15:16 PHQ-9: PHQ-9 Score PHQ-9: Total score 2 02/02/25 15:16 Depression Screening Interpretation: Negative Thrive Assessment: Date of Thrive Assessment Date Thrive assessed 08/01/24 02/02/25 15:16 Currently or been in a relationship where the following occur: No concerns reported Coding Level of Care Code New Pt Prev Care 18-39yr(02192 Diagnoses Physical exam Z00.00 Obesity, morbid, BMI 50 or higher E66.01 Additional Codes ALEXX-7 Assessment Billing - ALEXX-7 Assessment Tool: ALEXX-7 Assessment 51148 ([id number]) PHQ-9 - 56818 - PHQ-9 Billing: Yes ([id number]) Assessment & Plan Assessment & Plan (1) Physical exam: Code(s): Z00.00 - Encounter for general adult medical examination without abnormal findings Category: Medical (2) Obesity, morbid, BMI 50 or higher: Code(s): E66.01 - Morbid (severe) obesity due to excess calories Category: Medical Plan . Orders: Orders Complete Blood Count Auto Diff Today Z00.00 - Encounter for general adult medical examination without abnormal findings TSH reflex Free T4 Today Z00.00 - Encounter for general adult medical examination without abnormal findings UA CC w/rflx Micro + Cult Today Z00.00 - Encounter for general adult medical examination without abnormal findings Lipid Panel Today Z00.00 - Encounter for general adult medical examination without abnormal findings Comprehensive [place]. Panel Fast Today Z00.00 - Encounter for general adult medical examination without abnormal findings
--- OUTSIDE RECORDS SUMMARY | 2025-02-02 18:18 | XMS_ITS | Clinical Summary ---
Author Organization [facility] Address [address] [place] [id number] Phone Care Team Providers Care Violin Mechanic Name Role Phone Unavailable Primary Care Provider [...] of *Thrombophilia, No family history of *Sudden /[place] under 55, Family history of Hypertension, No [...]
--- OUTSIDE RECORDS SUMMARY | 2025-02-02 18:18 | XMS_ITS | Encounter Summary ---
Author Organization [facility] Address [address] [place] [id number] Phone Care Team Providers Care Service Manager Name Role Phone Kerry Raines MD Primary Care Provider Encounter Details Date Type Department Care Team (Late st Contact Info) Description 11/06/2016 Conversion Encounter [facility] [place] [address] [place] [address] Social History Tobacco Use Types Packs/Day Years [...] on filedocumented in this encounter Care Teams Service Manager Relationship Specialty Start Date End Date Kerry Raines MD [address] [place] [address] PCP - General 10/31/16 06/30/22 documented as of this encounter
--- OUTSIDE RECORDS SUMMARY | 2025-02-02 18:18 | XMS_ITS | Patient Health Record ---
Author Organization [facility] Address [address] [place] [address] Care Team Providers Care Electric Organ Inspector And Repairer Name Role Phone Dhruv Perrin Primary Care Provider Unaandreina Indy Baeza Unavailable [phone] Allergies Allergen (clinical drug ingredient) Drug/Non Drug Allergy documented on EMR Reaction Allergy Type Onset Date Status sulfamethoxazole / trimethoprim Bactrim Hives Drug Allergy Active Seasonale Unknown Drug Allergy Active Reason For Referral No Information Medications Medication SIG (Take, Route, Frequency, Duration) Notes Start Date End Date Status Vitamin B Complex - as directed Orally Unknown CBD Obert Unknown Vitamin D Unknown Custom Orthotics as [...] Insured Coverage Start Date Coverage End Date [facility] [employer] Claims [address] [place] [id number] Dhruv Caldwell Self - patient is the insured Medical (General) History Medical History History ICD Code Psychiatric disorder asthma Knee Pain Bunion Anxiety Back,Hip,and Knee pain Broken bones Depression Surgical History Surgery Date(Month/Year) wisdom teeth extraction 2015 Hospitalization History Reason Date(Month/Year[place] [facility] [place]
== END 2025-02-02 15:41 | disposition home or self-care (01) ==
LOC: HO.HMCC 15:03
PROVIDERS: PCP Nurse Practitioner Family; Visit Provider Nurse Practitioner Family
DX: Z00.00 Encounter for general adult medical examination without abnormal findings (principal); E66.01 Morbid (severe) obesity due to excess calories; Z68.43 Body mass index [BMI] 50.0-59.9, adult

== ENCOUNTER → 2025-02-02 15:02 | Outpatient (BNVA) | payer OTHER, SELFPAY | PROVIDERS: PCP Nurse Practitioner Family; Visit Provider Nurse Practitioner Family | DX: Z00.00 Encounter for general adult medical examination without abnormal findings (principal); F20.9 Schizophrenia, unspecified; E66.01 Morbid (severe) obesity due to excess calories; Z68.43 Body mass index [BMI] 50.0-59.9, adult | CPT/HCPCS: 96127; 99395 ==